=== PATIENT | male | born 1955 | race Caucasian/White ===

== ENCOUNTER 2020-01-12 06:11 | Emergency (ER) | payer MEDICARE, MEDICAID ==
[~2020-01-12] VITALS: Ht 182 cm; Wt 100.0 kg
[2020-01-12] MEDS ORDERED: NS IV 1000 ML 1,000 ML IV SCH ×2 (06:34→07:00)
--- OUTSIDE RECORDS SUMMARY | 2020-01-12 07:35 | XMS REPORT ---
Author Author Asher Dao Doctor Organization [facility] Address Unknown Phone Unavailable Care Team Providers Care Transit Driver Name Role Phone Migration, Doctor Unavailable Unavailable PROBLEMS Type Condition ICD9-CM Code [id number] Code Onset Dates Condition S tatus SNOMED Code Problem Schizophrenia, 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 Ac tive [id number] ALLERGIES No Information ENCOUNTERS Encounter Location Date Diagnosis [facility] [id number] [place] [address] Jan, [facility] [address] [id number] [place] [id number] Oct, [facility] [address] [address] Sep, Schizophrenia, 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 [facility] [address] [address] Sep, Schizophrenia, 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 [facility] [address] [address] Jul, Schizophrenia, 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 [facility] [address] [address] May, [facility] [address] [address] May, Schizophrenia, 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 [facility] [address] [address] Apr, Schizophrenia, 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 [facility] [address] [address] Apr, Encounter for immunization Z23 [facility] [id number] [place] [address] Mar, [facility] [address] [facility] [id number] [place] [address] Mar, Schizophrenia, 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 [facility] [address] [address] Jan, Schizophrenia, 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 [facility] [address] [id number] Jan, Dental examination Z01.20 [facility] [address] [id number] Nov, Caries K02.9 ; Dental examination Z01.20 and Oral health maintenance status requiring routine preventive dental care K08.9 [facility] [address] [address] Nov, Schizophrenia, 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 [facility] [address] [address] Oct, Schizophrenia, 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 [facility] [address] [id number] [address] 14 Sep, 2018 Follow up Z09 [facility] [address] [address] 08 Sep, 2018 [facility] [address] [place] [address] 02 Sep, 2018 Fever in other diseases R50. 81 and Cough R05 [facility] [address] [address] Aug, Viral upper respiratory trac t infection J06.9 [facility] [address] [place] [address] Aug, Fever R50.9 and Wheezing R06 .[address] [address] Jun, Schizophrenia, 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 [facility] [address] [address] 07 Jun, 2018 Schizophrenia, 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 [facility] [address] [address] 08 May, 2018 Schizophrenia, 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 [facility] [place] [facility] [address] [id number] [place] [address] 17 Feb, 2018 Schizophrenia, 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 [facility] [place] [facility] [address] [id number] [place] [address] December, Schizophrenia, 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 [facility] [place] [facility] [address] [id number] [place] [address] 15 Oct, 2017 Schizophrenia, 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 [facility] [place] [facility] [address] [id number] [place] [address] 07 Sep, 2017 [facility] [place] [facility] [address] [id number] [place] [address] 14 Jul, 2017 Schizophrenia, 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 [facility] [place] [facility] [address] [id number] [place] [address] 08 Jul, 2017 Schizophrenia, 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 [facility] [place] [facility] [address] [id number] [place] [address] 16 Jun, 2017 Schizophrenia, 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 [facility] [place] [facility] [address] [id number] [place] [address] 14 Apr, 2017 Schizophrenia, 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 [facility] [place] [facility] [address] [id number] [place] [address] 11 Feb, 2017 Schizophrenia, 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 [facility] [place] [facility] [address] [id number] [place] [address] 15 Jan, 2017 Schizophrenia, 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 [facility] [place] [facility] [address] [id number] [place] [address] 14 Oct, 2016 Schizophrenia, 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 [facility] [place] [facility] [address] [id number] [place] [address] 15 Jul, 2016 Schizophrenia, 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 [facility] [place] [facility] [address] [id number] [place] [address] 09 Jun, 2016 [facility] [place] [facility] [id number] [place] [address] 15 Apr, 2016 Disorganized schizophrenia F20.1 [facility] [id number] [place] [address] Mar, [facility] [id number] [place] [address] Jan, Schizophrenia, 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 [facility] [id number] [place] [address] December, [facility] [id number] [place] [address] Nov, [facility] [address] [address] Oct, Disorganized schizophrenia, 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 [facility] [id number] [place] [address] Oct, [facility] [id number] [place] [address] Sep, [facility] [id number] [place] [address] Sep, [facility] [id number] [place] [address] Sep, [facility] [id number] [place] [address] Aug, [facility] [address] [address] Aug, Disorganized schizophrenia F20.1 [facility] [id number] [place] [address] Aug, [facility] [id number] [place] [address] May, [facility] [id number] [place] [address] May, Schizophrenia, 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 [facility] [id number] [place] [address] Feb, Disorganized schizophrenia, 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 [facility] [address] [id number] [place] [address] December, Disorganized schizophrenia, 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 [facility] [address] [id number] [place] [address] Nov, [facility] [id number] [place] [address] Nov, [facility] [id number] [place] [address] Jun, [facility] [id number] [place] [address] Jun, [facility] [id number] [place] [address] Mar, [facility] [id number] [place] [address] Mar, [facility] [id number] [place] [address] December, [facility] [id number] [place] [address] December, [facility] [id number] [place] [address] Sep, [facility] [id number] [place] [address] Sep, [facility] [id number] [place] [address] Sep, [facility] [id number] [place] [address] Sep, [facility] [id number] [place] [address] Jun, [facility] [id number] [place] [address] Jun, [facility] [id number] [place] [address] May, [facility] [place] [facility] [address] [facility] [id number] [facility] [place] [address] 24 May, 2013 [facility] [place] [facility] [address] [facility] [id number] [facility] [place] [address] Apr, [facility] [place] [facility] [address] [id number] [facility] [place] [address] Mar, [facility] [place] [facility] [address] [id number] [place] [address] Jan, [facility] [place] [facility] [address] [facility] [id number] [place] [address] Jan, [facility] [place] [facility] [address] [id number] [facility] [place] [address] 26 Nov, 2012 [facility] [place] [facility] [address] [id number] [facility] [place] [address] 25 Nov, 2012 [facility] [place] [facility] [address] [id number] [place] [address] 23 Nov, 2012 [facility] [place] [facility] [address] [id number] [facility] [place] [address] 17 Nov, 2012 [facility] [place] [facility] [address] [id number] [place] [address] 16 Nov, 2012 [facility] [place] [facility] [address] [id number] [place] [address] 12 Nov, 2012 [facility] [place] [facility] [address] [id number] [place] [address] 11 Nov, 2012 [facility] [place] [facility] [address] [id number] [facility] [place] [address] 08 Nov, 2012 [facility] [place] [facility] [address] [id number] [place] [address] 27 Oct, 2012 [facility] [place] [facility] [address] [id number] [facility] [place] [address] 07 Oct, 2012 [facility] [place] [facility] [address] [id number] [facility] [place] [address] 05 Oct, 2012 [facility] [place] [facility] [id number] [place] [address] Jul, [facility] [id number] [place] [address] Jul, [facility] [id number] [place] [address] Apr, [facility] [id number] [place] [address] Jan, [facility] [id number] [place] [address] Oct, [facility] [address] [address] Oct, [facility] [id number] [place] [address] Sep, [facility] [id number] [place] [address] Sep, [facility] [id number] [place] [address] Aug, [facility] [id number] [place] [address] Jul, [facility] [id number] [place] [address] Jun, [facility] [id number] [place] [address] Jun, [facility] [id number] [place] [address] Jan, IMMUNIZATIONS No Known Immunizations SOCIAL HISTORY Never Assessed REASON FOR VISIT PLAN OF CARE VITAL SIGNS MEDICATIONS Unknown Medications RESULTS No Results PROCEDURES No Known procedures INSTRUCTIONS MEDICATIONS ADMINISTERED No Known Medications MEDICAL (GENERAL) HISTORY Type Description Date Medical History Disorganized schizophrenia, chronic cond ition Surgical History teeth surgically removed 02/2019 Hospitalization History pneumonia 09/2018
--- OUTSIDE RECORDS SUMMARY | 2020-01-12 07:35 | XMS REPORT ---
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 Ac tive [id number] ALLERGIES No Information ENCOUNTERS Encounter Location Date Diagnosis [facility] [address] [facility] [id number] [address] [place] [phone] Jan, [facility] [address] [facility] [id number] [address] [place] [phone] Nov, [facility] [address] [facility] [id number] [address] [place] [id number] Oct, Dental examination Z01.20 ; Caries K02.9 and 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 [facility] [address] [facility] [id number] [address] [place] [phone] Sep, Schizophrenia, 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 [facility] [address] [facility] [id number] [address] [place] [address] Sep, Schizophrenia, 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 [facility] [address] [facility] [id number] [address] [place] [id number] Jul, Schizophrenia, 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 [facility] [address] [facility] [id number] [address] [place] [address] May, [facility] [address] [facility] [id number] [address] [place] [phone] May, Schizophrenia, 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 [facility] [address] [facility] [id number] [address] [place] [phone] Apr, Schizophrenia, 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 [facility] [address] [facility] [id number] [address] [place] [id number] Apr, Encounter for immunization Z 23 [facility] [address] [facility] [id number] [address] [place] [address] Mar, [facility] [place] [address] [facility] [id number] [place] [address] 23 Mar, 2019 Schizophrenia, 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 [facility] [address] [facility] [id number] [address] [place] [address] Jan, Schizophrenia, 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 [facility] [id number] [place] [id number] Jan, Dental examination Z01.20 [facility] [id number] [place] [id number] Nov, Caries K02.9 ; Dental examin ation Z01.20 and Oral health maintenance status requiring routine preventive dental care K08.9 [facility] [address] [facility] [id number] [address] [place] [phone] Nov, Schizophrenia, 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 [facility] [address] [place] [id number] [address] [place] [phone] Oct, Schizophrenia, 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 [facility] [address] [place] [id number] [place] [address]28 [id number] 14 Sep, 2018 Follow up Z09 [facility] [address] [place] [id number] [address] [place] [phone] 08 Sep, 2018 [facility] [address] [place] [id number] [address] [place] [phone] 02 Sep, 2018 Fever in other diseases R50. 81 and Cough R05 [facility] [address] [facility] [id number] [address] [place] [phone] Aug, Viral upper respiratory trac t infection J06.9 [facility] [address] [facility] [id number] [address] [place] [phone] Aug, Fever R50.9 and Wheezing R06 .2 [facility] [address] [id number] [address] [place] [address], [place] [address] Jun, Schizophrenia, 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 [facility] [address] [id number] [address] [place] [address], [place] [address] 07 Jun, 2018 Schizophrenia, 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 [facility] [address] [id number] [address] [place] [address], [place] [address] 08 May, 2018 Schizophrenia, 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 [facility] [address] [id number] [address] [place] [address], [place] [address] Feb, Schizophrenia, 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 [facility] [address] [id number] [address] [place] [address], [place] [address] December, Schizophrenia, 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 [facility] [address] [id number] [address] [place] [address], [place] [address] Oct, Schizophrenia, 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 [facility] [address] [id number] [address] [place] [address], [place] [address] 07 Sep, 2017 [facility] [address] [id number] [address] [place] [phone] 14 Jul, 2017 Schizophrenia, 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 [facility] [address] [id number] [address] [place] [address], [place] [address] 08 Jul, 2017 Schizophrenia, 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 [facility] [address] [id number] [address] [place] [id number] 16 Jun, 2017 Schizophrenia, 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 [facility] [address] [id number] [address] [place] [address], [place] [address] 14 Apr, 2017 Schizophrenia, 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 [facility] [address] [id number] [address] [place] [id number] Feb, Schizophrenia, 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 [facility] [address] [id number] [address] [place] [id number] 15 Jan, 2017 Schizophrenia, 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 [facility] [address] [id number] [address] [place] [address], [place] [address] 14 Oct, 2016 Schizophrenia, 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 [facility] [address] [id number] [address] [place] [address], [place] [address] 15 Jul, 2016 Schizophrenia, 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 [facility] [address] [id number] [address] [place] [address], [place] [address] 09 Jun, 2016 [facility] [address] [id number] [address] [place] [phone] 15 Apr, 2016 Disorganized schizophrenia F 20.1 [facility] [address] [id number] [address] [place] [address], [place] [address] Mar, [facility] [address] [id number] [address] [place] [address], [place] [address] Jan, Schizophrenia, 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 [facility] [address] [id number] [address] [place] [phone] December, [facility] [address] [id number] [address] [place] [phone] Nov, [facility] [address] [id number] [address] [place] [phone] 29 Oct, 2015 Disorganized schizophrenia, 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 [facility] [address] [id number] [address] [place] [phone] Oct, [facility] [address] [id number] [address] [place] [id number] Sep, [facility] [address] [id number] [address] [place] [address], [place] [address] Sep, [facility] [address] [id number] [address] [place] [address] Sep, [facility] [address] [id number] [address] [place] [address] Aug, [facility] [address] [id number] [address] [place] [phone] 15 Aug, 2015 Disorganized schizophrenia F 20.1 [facility] [address] [id number] [address] [place] [address], [place] [address] Aug, [facility] [address] [id number] [address] [place] [phone] May, [facility] [address] [id number] [address] [place] [address] May, Schizophrenia, 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 [facility] [address] [id number] [address] [place] [address] Feb, Disorganized schizophrenia, 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 [facility] [address] [id number] [address] [place] [address] December, Disorganized schizophrenia, 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 [facility] [address] [id number] [address] [place] [address] Nov, [facility] [address] [id number] [address] [place] [phone] Nov, [facility] [address] [id number] [address] [place] [phone] Jun, [facility] [address] [id number] [address] [place] [phone] Jun, [facility] [address] [id number] [address] [place] [phone] Mar, [facility] [address] [id number] [address] [place] [phone] Mar, [facility] [address] [id number] [address] [place] [phone] December, [facility] [address] [id number] [address] [place] [phone] December, [facility] [address] [id number] [address] [place] [phone] Sep, [facility] [address] [id number] [address] [place] [address], [place] [address] Sep, [facility] [address] [id number] [address] [place] [address], [place] [address] Sep, [facility] [address] [id number] [address] [place] [address], [place] [address] Sep, [facility] [address] [id number] [address] [place] [address], [place] [address] Jun, [facility] [address] [id number] [address] [place] [address], [place] [address] Jun, [facility] [address] [id number] [address] [place] [address], [place] [address] May, [facility] [address] [id number] [address] [place] [address], [place] [address] May, [facility] [address] [id number] [address] [place] [address], [place] [address] Apr, [facility] [address] [id number] [address] [place] [address], [place] [address] Mar, [facility] [address] [id number] [address] [place] [phone] Jan, [facility] [address] [id number] [address] [place] [address], [place] [address] Jan, [facility] [address] [id number] [address] [place] [phone] Nov, [facility] [address] [id number] [address] [place] [address], [place] [address] Nov, [facility] [address] [id number] [address] [place] [address], [place] [address] Nov, [facility] [address] [id number] [address] [place] [address], [place] [address] Nov, [facility] [address] [id number] [address] [place] [phone] 16 Nov, 2012 [facility] [address] [id number] [address] [place] [address], [place] [address] 12 Nov, 2012 [facility] [address] [id number] [address] [place] [address], [place] [address] 11 Nov, 2012 [facility] [address] [id number] [address] [place] [address], [place] [address] 08 Nov, 2012 [facility] [address] [id number] [address] [place] [address], [place] [address] 27 Oct, 2012 [facility] [address] [id number] [address] [place] [address], [place] [address] 07 Oct, 2012 [facility] [address] [id number] [address] [place] [address], [place] [address] 05 Oct, 2012 [facility] [address] [id number] [address] [place] [address], [place] [address] Jul, [facility] [address] [id number] [address] [place] [address], [place] [address] Jul, [facility] [address] [id number] [address] [place] [address], [place] [address] Apr, [facility] [address] [id number] [address] [place] [address], [place] [address] Jan, [facility] [address] [id number] [address] [place] [address], [place] [address] Oct, [facility] [address] [id number] [address] [place] [address], [place] [address] Oct, [facility] [address] [id number] [address] [place] [address], [place] [address] Sep, [facility] [address] [id number] [address] [place] [address], [place] [address] Sep, [facility] [address] [id number] [address] [place] [address], [place] [address] Aug, [facility] [address] [facility] [id number] [address] [place] [phone] 16 Jul, 2011 [facility] [address] [facility] [id number] [address] [place] [address] Jun, [facility] [address] [facility] [id number] [address] [place] [phone] 15 Jun, 2011 [facility] [address] [facility] [id number] [address] [place] [address] 17 Jan, 2011 IMMUNIZATIONS No Known Immunizations SOCIAL HISTORY Never Assessed REASON FOR VISIT PLAN OF CARE VITAL SIGNS Height 68 in 2013-07-02 Weight 174.25 lbs 2013-07-02 Temperature 98 degrees Fahrenheit 2013-07-02 Heart Rate 80 bpm 2013-07-02 Respiratory Rate 28 2013-07-02 Blood pressure systolic 100 mmHg 2013-07-02 Blood pressure diastolic 72 mmHg 2013-07-02 MEDICATIONS Unknown Medications RESULTS No Results PROCEDURES No Known procedures INSTRUCTIONS MEDICATIONS ADMINISTERED No Known Medications MEDICAL (GENERAL) HISTORY Type Description Date Medical History Disorganized schizophrenia, chronic cond ition Surgical History teeth surgically removed 02/2019 Hospitalization History pneumonia 09/2018
--- OUTSIDE RECORDS SUMMARY | 2020-01-12 07:35 | XMS REPORT ---
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 Ac tive [id number] ALLERGIES No Information ENCOUNTERS Encounter Location Date Diagnosis [facility] [address] [address] Sep, [facility] [address] [address] Jul, Schizophrenia, 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 [facility] [address] [address] May, [facility] [address] [address] May, Schizophrenia, 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 [facility] [address] [address] Apr, Schizophrenia, 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 [facility] [address] [address] Apr, Encounter for immunization Z23 [facility] [address] [address] Mar, [facility] [address] [id number] [place] [address] Mar, Schizophrenia, 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 [facility] [address] [address] Jan, Schizophrenia, 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 [facility] [address] [id number] [place] [id number] Jan, Dental examination Z01.20 [facility] [address] [id number] [place] [id number] 16 Nov, 2018 Caries K02.9 ; Dental examination Z01.20 and Oral health maintenance status requiring routine preventive dental care K08.9 [facility] [id number] [place] [address] 15 Nov, 2018 Schizophrenia, 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 [facility] [id number] [place] [address] Oct, Schizophrenia, 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 [facility] [address] [facility] [address] 14 Sep, 2018 Follow up Z09 [facility] [id number] [place] [address] 08 Sep, 2018 [facility] [address] [place] [address] 02 Sep, 2018 Fever in other diseases R50. 81 and Cough R05 [facility] [address] [place] [phone] Aug, Viral upper respiratory trac t infection J06.9 [facility] [address] [place], [place] [id number] [address] [place] [address] 07 Aug, 2018 Fever R50.9 and Wheezing R06 .2 [place] [address] [address] Jun, Schizophrenia, 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 [facility] [address] [address] 07 Jun, 2018 Schizophrenia, 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 [facility] [address] [address] 08 May, 2018 Schizophrenia, 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 [facility] [address] [address] Feb, Schizophrenia, 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 [facility] [address] [place] [address] 10 Dec, 2017 Schizophrenia, 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 [facility] [address] [id number] [place] [address] 15 Oct, 2017 Schizophrenia, 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 [facility] [address] [id number] [place] [address] 07 Sep, 2017 [facility] [address] [id number] [place] [address] 14 Jul, 2017 Schizophrenia, 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 [facility] [address] [id number] [place] [address] 08 Jul, 2017 Schizophrenia, 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 [facility] [address] [id number] [place] [address] 16 Jun, 2017 Schizophrenia, 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 [facility] [address] [id number] [place] [address] 14 Apr, 2017 Schizophrenia, 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 [facility] [address] [id number] [place] [address] 11 Feb, 2017 Schizophrenia, 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 [facility] [id number] [place] [address] 15 Jan, 2017 Schizophrenia, 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 [facility] [address] [id number] [place] [address] 14 Oct, 2016 Schizophrenia, 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 [facility] [address] [id number] [place] [address] 15 Jul, 2016 Schizophrenia, 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 [facility] [address] [id number] [place] [address] 09 Jun, 2016 [facility] [id number] [place] [address] 15 Apr, 2016 Disorganized schizophrenia F20.1 [facility] [address] [id number] [place] [address] 11 Mar, 2016 [facility] [address] [id number] [place] [address] Jan, Schizophrenia, 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 [facility] [id number] [place] [address] December, [facility] [id number] [place] [address] Nov, [facility] [id number] [place] [address] Oct, Disorganized schizophrenia, 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 [facility] [id number] [place] [address] Oct, [facility] [address] [address] Sep, [facility] [id number] [place] [address] Sep, [facility] [address] [address] Sep, [facility] [id number] [place] [address] Aug, [facility] [address] [address] Aug, Disorganized schizophrenia F20.1 [facility] [id number] [place] [address] Aug, [facility] [address] [address] May, [facility] [id number] [place] [address] May, Schizophrenia, 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 [facility] [address] [address] Feb, Disorganized schizophrenia, 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 [facility] [id number] [place] [address] December, Disorganized schizophrenia, 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 [facility] [address] [place] [address] 14 Nov, 2014 [facility] [address] [facility] [id number] [place] [address] Nov, [facility] [address] [id number] [place] [address] Jun, [facility] [address] [id number] [place] [address] Jun, [facility] [address] [id number] [place] [address] Mar, [facility] [address] [id number] [place] [address] Mar, [facility] [address] [id number] [place] [address] December, [facility] [address] [id number] [place] [address] December, [facility] [address] [id number] [place] [address] Sep, [facility] [address] [id number] [place] [address] Sep, [facility] [address] [id number] [place] [address] Sep, [facility] [address] [id number] [place] [address] Sep, [facility] [address] [id number] [place] [address] Jun, [facility] [address] [id number] [place] [address] 14 Jun, 2013 [facility] [address] [id number] [place] [address] 24 May, 2013 [facility] [address] [id number] [place] [address] 24 May, 2013 [facility] [address] [id number] [place] [address] Apr, [facility] [address] [id number] [place] [address] Mar, [facility] [address] [id number] [place] [address] Jan, [facility] [address] [id number] [place] [address] Jan, [facility] [address] [id number] [place] [address] 26 Nov, 2012 [facility] [address] [id number] [place] [address] Nov, [facility] [address] [id number] [place] [address] 23 Nov, 2012 [facility] [address] [id number] [place] [address] 17 Nov, 2012 [facility] [address] [id number] [place] [address] 16 Nov, 2012 [facility] [address] [id number] [place] [address] 12 Nov, 2012 [facility] [address] [id number] [place] [address] 11 Nov, 2012 [facility] [address] [id number] [place] [address] 08 Nov, 2012 [facility] [address] [id number] [place] [address] 27 Oct, 2012 [facility] [address] [id number] [place] [address] 07 Oct, 2012 [facility] [address] [id number] [place] [address] 05 Oct, 2012 [facility] [address] [id number] [place] [address] Jul, [facility] [address] [id number] [place] [address] Jul, [facility] [address] [facility] [place] [address] Apr, [facility] [address] [id number] [place] [address] Jan, [facility] [address] [id number] [place] [address] Oct, [facility] [address] [id number] [place] [address] Oct, [facility] [id number] [place] [address] Sep, [facility] [id number] [place] [address] Sep, [facility] [id number] [place] [address] Aug, [facility] [id number] [place] [address] Jul, [facility] [id number] [place] [address] Jun, [facility] [address] [id number] [place] [address] Jun, [facility] [id number] [place] [address] Jan, IMMUNIZATIONS No Known Immunizations SOCIAL HISTORY Never Assessed REASON FOR VISIT PLAN OF CARE VITAL SIGNS Height 68 in 2014-01-05 Weight 200.25 lbs 2014-01-05 Temperature 97.8 degrees Fahrenheit 2014-01-05 Heart Rate 78 bpm 2014-01-05 Respiratory Rate 28 2014-01-05 Blood pressure systolic 122 mmHg 2014-01-05 Blood pressure diastolic 68 mmHg 2014-01-05 MEDICATIONS Unknown Medications RESULTS No Results PROCEDURES No Known procedures INSTRUCTIONS MEDICATIONS ADMINISTERED No Known Medications MEDICAL (GENERAL) HISTORY Type Description Date Medical History Disorganized schizophrenia, chronic cond ition Surgical History teeth surgically removed 02/2019 Hospitalization History pneumonia 09/2018
--- OUTSIDE RECORDS SUMMARY | 2020-01-12 07:35 | XMS REPORT ---
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 Ac tive [id number] ALLERGIES No Information ENCOUNTERS Encounter Location Date Diagnosis [facility] [address] [id number] [address] [place] [phone] Jan, [facility] [address] [id number] [address] [place] [address] Nov, [facility] [address] [id number] [address] [place] [id number] Oct, Dental examination Z01.20 ; Caries K02.9 and 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 [facility] [address] [id number] [address] [place] [address] Sep, Schizophrenia, 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 [facility] [address] [id number] [address] [place] [address] Sep, Schizophrenia, 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 [facility] [address] [id number] [address] [place] [address] Jul, Schizophrenia, 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 [facility] [address] [id number] [address] [place] [address] May, [facility] [address] [facility] [id number] [address] [place] [address] May, Schizophrenia, 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 [facility] [address] [id number] [address] [place] [address] Apr, Schizophrenia, 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 [facility] [address] [facility] [id number] [address] [place] [address] Apr, Encounter for immunization Z 23 [facility] [address] [facility] [id number] [address] [place] [address] Mar, [facility] [address] [id number] [phone] Mar, Schizophrenia, 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 [facility] [address] [facility] [id number] [address] [place] [address] Jan, Schizophrenia, 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 [facility] [address] [id number] Jan, Dental examination Z01.20 [facility] [address] [id number] Nov, 2018 Caries K02.9 ; Dental examin ation Z01.20 and Oral health maintenance status requiring routine preventive dental care K08.9 [facility] [address] [facility] [id number] [address] [place] [phone] Nov, Schizophrenia, 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 [facility] [address] [id number] [address] [place] [phone] Oct, Schizophrenia, 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 [facility] [id number] [place] [address] [phone] 14 Sep, 2018 Follow up Z09 [facility] [address] [facility] [id number] [address] [place] [phone] 08 Sep, 2018 [facility] [address] [facility] [id number] [address] [place] [phone] 02 Sep, 2018 Fever in other diseases R50. 81 and Cough R05 [facility] [address] [facility] [id number] [address] [place] [phone] Aug, Viral upper respiratory trac t infection J06.9 [facility] [address] [id number] [address] [place] [address], [place] [address] 07 Aug, 2018 Fever R50.9 and Wheezing R06 .2 [facility] [address] [id number] [address] [place] [address], [place] [address] 27 Jun, 2018 Schizophrenia, 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 [facility] [address] [facility] [id number] [address] [place] [address], [place] [address] 07 Jun, 2018 Schizophrenia, 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 [facility] [address] [facility] [id number] [address] [place] [address], [place] [address] 08 May, 2018 Schizophrenia, 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 [facility] [address] [id number] [address] [place] [address], [place] [address] 17 Feb, 2018 Schizophrenia, 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 [facility] [address] [facility] [id number] [address] [place] [address], [place] [address] December, Schizophrenia, 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 [facility] [address] [facility] [id number] [address] [place] [phone] 15 Oct, 2017 Schizophrenia, 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 [facility] [address] [id number] [address] [place] [address], [place] [address] 07 Sep, 2017 [facility] [address] [facility] [id number] [address] [place] [address], [place] [address] 14 Jul, 2017 Schizophrenia, 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 [facility] [address] [facility] [id number] [address] [place] [phone] 08 Jul, 2017 Schizophrenia, 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 [facility] [address] [facility] [id number] [address] [place] [phone] 16 Jun, 2017 Schizophrenia, 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 [facility] [address] [facility] [id number] [address] [place] [phone] 14 Apr, 2017 Schizophrenia, 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 [facility] [address] [facility] [id number] [address] [place] [address] Feb, Schizophrenia, 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 [facility] [address] [id number] [address] [place] [address], [place] [address] 15 Jan, 2017 Schizophrenia, 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 [facility] [address] [id number] [address] [place] [address], [place] [address] 14 Oct, 2016 Schizophrenia, 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 [facility] [address] [id number] [address] [place] [address], [place] [address] 15 Jul, 2016 Schizophrenia, 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 [facility] [address] [id number] [address] [place] [address], [place] [address] 09 Jun, 2016 [facility] [address] [id number] [address] [place] [address], [place] [address] 15 Apr, 2016 Disorganized schizophrenia F 20.1 [facility] [address] [id number] [address] [place] [address], [place] [address] Mar, [facility] [address] [id number] [address] [place] [address], [place] [address] Jan, Schizophrenia, 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 [facility] [address] [id number] [address] [place] [address], [place] [address] December, [facility] [address] [id number] [address] [place] [address] Nov, [facility] [address] [id number] [address] [place] [address], [place] [address] 29 Oct, 2015 Disorganized schizophrenia, 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 [facility] [address] [id number] [address] [place] [address], [place] [address] 15 Oct, 2015 [facility] [address] [id number] [address] [place] [address], [place] [address] Sep, [facility] [address] [id number] [address] [place] [phone] Sep, [facility] [address] [id number] [address] [place] [address], [place] [address] Sep, [facility] [address] [id number] [address] [place] [address], [place] [address] Aug, [facility] [address] [id number] [address] [place] [address] Aug, Disorganized schizophrenia F 20.1 [facility] [address] [id number] [address] [place] [address], [place] [address] Aug, [facility] [address] [id number] [address] [place] [address], [place] [address] May, [facility] [address] [id number] [address] [place] [address] May, Schizophrenia, 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 [facility] [address] [id number] [address] [place] [address] Feb, Disorganized schizophrenia, 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 [facility] [address] [id number] [address] [place] [address] December, Disorganized schizophrenia, 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 [facility] [address] [id number] [address] [place] [address] Nov, [facility] [address] [id number] [address] [place] [address], [place] [address] Nov, [facility] [address] [id number] [address] [place] [address] Jun, [facility] [address] [id number] [address] [place] [address], [place] [address] Jun, [facility] [address] [id number] [address] [place] [address] Mar, [facility] [address] [id number] [address] [place] [address], [place] [address] Mar, [facility] [address] [id number] [address] [place] [phone] December, [facility] [address] [id number] [address] [place] [address] December, [facility] [address] [id number] [address] [place] [address], [place] [address] Sep, [facility] [address] [id number] [address] [place] [address], [place] [address] Sep, [facility] [address] [id number] [address] [place] [address], [place] [address] Sep, [facility] [address] [id number] [address] [place] [address], [place] [address] Sep, [facility] [address] [id number] [address] [place] [address], [place] [address] Jun, [facility] [address] [id number] [address] [place] [address], [place] [address] Jun, [facility] [address] [id number] [address] [place] [address], [place] [address] May, [facility] [address] [id number] [address] [place] [address], [place] [address] May, [facility] [address] [id number] [address] [place] [address], [place] [address] Apr, [facility] [address] [id number] [address] [place] [phone] Mar, [facility] [address] [id number] [address] [place] [address], [place] [address] Jan, [facility] [address] [id number] [address] [place] [address] Jan, [facility] [address] [id number] [address] [place] [address], [place] [address] Nov, [facility] [address] [id number] [address] [place] [address], [place] [address] Nov, [facility] [address] [id number] [address] [place] [address], [place] [address] Nov, [facility] [address] [id number] [address] [place] [address] 17 Nov, 2012 [facility] [address] [id number] [address] [place] [address], [place] [address] 16 Nov, 2012 [facility] [address] [id number] [address] [place] [address], [place] [address] 12 Nov, 2012 [facility] [address] [id number] [address] [place] [address], [place] [address] 11 Nov, 2012 [facility] [address] [id number] [address] [place] [address], [place] [address] 08 Nov, 2012 [facility] [address] [id number] [address] [place] [address], [place] [address] 27 Oct, 2012 [facility] [address] [id number] [address] [place] [address], [place] [address] 07 Oct, 2012 [facility] [address] [id number] [address] [place] [address], [place] [address] 05 Oct, 2012 [facility] [address] [id number] [address] [place] [address], [place] [address] Jul, [facility] [address] [id number] [address] [place] [address], [place] [address] Jul, [facility] [address] [id number] [address] [place] [address], [place] [address] 27 Apr, 2012 [facility] [address] [id number] [address] [place] [address], [place] [address] Jan, [facility] [address] [id number] [address] [place] [address], [place] [address] Oct, [facility] [address] [id number] [address] [place] [address], [place] [address] 15 Oct, 2011 [facility] [address] [id number] [address] [place] [address], [place] [address] Sep, [facility] [address] [id number] [address] [place] [address], [place] [address] Sep, [facility] [address] [facility] [id number] [address] [place] [phone] Aug, [facility] [address] [facility] [id number] [address] [place] [address] Jul, [facility] [address] [facility] [id number] [address] [place] [address] Jun, [facility] [address] [facility] [id number] [address] [place] [phone] Jun, [facility] [address] [facility] [id number] [address] [place] [phone] Jan, IMMUNIZATIONS No Known Immunizations SOCIAL HISTORY Never Assessed REASON FOR VISIT PLAN OF CARE VITAL SIGNS Height 67.5 in 2012-02-13 Weight 169 lbs 2012-02-13 Blood pressure systolic 112 mmHg 2012-02-13 Blood pressure diastolic 70 mmHg 2012-02-13 MEDICATIONS Unknown Medications RESULTS No Results PROCEDURES Procedure Date Ordered Result Body Site RENAL FUNCTION PANEL February 13, 2012 LIPID PANEL February 13, 2012 INSTRUCTIONS MEDICATIONS ADMINISTERED No Known Medications MEDICAL (GENERAL) HISTORY Type Description Date Medical History Disorganized schizophrenia, chronic cond ition Surgical History teeth surgically removed 02/2019 Hospitalization History pneumonia 09/2018
--- OUTSIDE RECORDS SUMMARY | 2020-01-12 07:35 | XMS REPORT ---
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 Ac tive [id number] ALLERGIES Substance Reaction Event Type Date Status Sulfa(sulfonamide Antibiotics) Unknown Non Drug Allergy Nov Active ENCOUNTERS Encounter Location Date Diagnosis [facility] [address] [address] Jan, [facility] [address] [id number] Jan, Dental examination Z01.20 [facility] [address] [id number] Nov, Caries K02.9 ; Dental examin ation Z01.20 and Oral health maintenance status requiring routine preventive dental care K08.9 [facility] [address] [address] Nov, Schizophrenia, 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 [facility] [address] [address] Oct, Schizophrenia, 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 [facility] [address] [place] [address] 14 Sep, 2018 Follow up Z09 [facility] [address] [id number] [address] [place] [address] 08 Sep, 2018 [facility] [address] [address] 02 Sep, 2018 Fever in other diseases R50. 81 and Cough R05 [facility] [address] [id number] [address] [place] [address] Aug, Viral upper respiratory trac t infection J06.9 [facility] [address] [id number] [address] [place] [address], [place] [address] Aug, Fever R50.9 and Wheezing R06 .2 [facility] [address] [id number] [address] [place] [address], [place] [address] 27 Jun, 2018 Schizophrenia, 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 [facility] [address] [id number] [address] [place] [address], [place] [address] 07 Jun, 2018 Schizophrenia, 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 [facility] [address] [id number] [address] [place] [address], [place] [address] 08 May, 2018 Schizophrenia, 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 [facility] [address] [id number] [address] [place] [address], [place] [address] 17 Feb, 2018 Schizophrenia, 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 [facility] [address] [id number] [address] [place] [address] December, Schizophrenia, 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 [facility] [address] [id number] [address] [place] [address] 15 Oct, 2017 Schizophrenia, 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 [facility] [address] [id number] [address] [place] [address] 07 Sep, 2017 [facility] [address] [id number] [address] [place] [address] 14 Jul, 2017 Schizophrenia, 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 [facility] [address] [id number] [address] [place] [address] 08 Jul, 2017 Schizophrenia, 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 [facility] [address] [facility] [id number] [address] [place] [address] 16 Jun, 2017 Schizophrenia, 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 [facility] [address] [id number] [address] [place] [id number] 14 Apr, 2017 Schizophrenia, 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 [facility] [address] [facility] [id number] [address] [place] [address] Feb, Schizophrenia, 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 [facility] [address] [id number] [address] [place] [id number] 15 Jan, 2017 Schizophrenia, 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 [facility] [address] [id number] [address] [place] [id number] 14 Oct, 2016 Schizophrenia, 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 [facility] [address] [id number] [address] [place] [id number] 15 Jul, 2016 Schizophrenia, 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 [facility] [address] [id number] [address] [place] [address] Jun, [facility] [address] [id number] [address] [place] [id number] 15 Apr, 2016 Disorganized schizophrenia F 20.1 [facility] [address] [id number] [address] [place] [address] Mar, [facility] [address] [id number] [address] [place] [address] Jan, Schizophrenia, 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 [facility] [address] [id number] [address] [place] [address] December, [facility] [address] [id number] [address] [place] [address] Nov, [facility] [address] [id number] [address] [place] [address] 29 Oct, 2015 Disorganized schizophrenia, 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 [facility] [address] [id number] [address] [place] [address] Oct, [facility] [address] [id number] [address] [place] [address] Sep, [facility] [address] [id number] [address] [place] [address] Sep, [facility] [address] [id number] [address] [place] [id number] Sep, [facility] [address] [id number] [address] [place] [address] Aug, [facility] [address] [id number] [address] [place] [address] Aug, Disorganized schizophrenia F 20.1 [facility] [address] [id number] [address] [place] [address] Aug, [facility] [address] [id number] [address] [place] [address] May, [facility] [address] [id number] [address] [place] [id number] May, Schizophrenia, 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 [facility] [address] [id number] [address] [place] [address] Feb, Disorganized schizophrenia, 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 [facility] [address] [id number] [address] [place] [address] December, Disorganized schizophrenia, 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 [facility] [address] [id number] [address] [place] [address] Nov, [facility] [address] [id number] [address] [place] [address] Nov, [facility] [address] [id number] [address] [place] [address] Jun, [facility] [address] [id number] [address] [place] [address] Jun, [facility] [address] [id number] [address] [place] [address] Mar, [facility] [address] [id number] [address] [place] [address] Mar, [facility] [address] [id number] [address] [place] [address] December, [facility] [address] [id number] [address] [place] [address], [place] [address] December, [facility] [address] [id number] [address] [place] [address], [place] [address] Sep, [facility] [address] [id number] [address] [place] [address], [place] [address] Sep, [facility] [address] [id number] [address] [place] [address], [place] [address] Sep, [facility] [address] [id number] [address] [place] [address], [place] [address] Sep, [facility] [address] [id number] [address] [place] [address], [place] [address] Jun, [facility] [address] [id number] [address] [place] [address], [place] [address] Jun, [facility] [address] [id number] [address] [place] [address], [place] [address] May, [facility] [address] [id number] [address] [place] [address], [place] [address] May, [facility] [address] [id number] [address] [place] [address], [place] [address] Apr, [facility] [address] [id number] [address] [place] [address], [place] [address] Mar, [facility] [address] [id number] [address] [place] [address], [place] [address] Jan, [facility] [address] [id number] [address] [place] [address], [place] [address] Jan, [facility] [address] [id number] [address] [place] [address], [place] [address] Nov, [facility] [address] [id number] [address] [place] [address], [place] [address] Nov, [facility] [address] [id number] [address] [place] [address], [place] [address] 23 Nov, 2012 [facility] [address] [id number] [address] [place] [address], [place] [address] 17 Nov, 2012 [facility] [address] [id number] [address] [place] [address], [place] [address] 16 Nov, 2012 [facility] [address] [id number] [address] [place] [address], [place] [address] 12 Nov, 2012 [facility] [address] [id number] [address] [place] [address], [place] [address] 11 Nov, 2012 [facility] [address] [id number] [address] [place] [address], [place] [address] 08 Nov, 2012 [facility] [address] [id number] [address] [place] [address], [place] [address] 27 Oct, 2012 [facility] [address] [id number] [address] [place] [address], [place] [address] 07 Oct, 2012 [facility] [address] [id number] [address] [place] [address], [place] [address] 05 Oct, 2012 [facility] [address] [id number] [address] [place] [address], [place] [address] Jul, [facility] [address] [id number] [address] [place] [address], [place] [address] 27 Jul, 2012 [facility] [address] [id number] [address] [place] [address], [place] [address] 27 Apr, 2012 [facility] [address] [id number] [address] [place] [address], [place] [address] 27 Jan, 2012 [facility] [address] [id number] [address] [place] [address], [place] [address] 27 Oct, 2011 [facility] [address] [id number] [address] [place] [address], [place] [address] 15 Oct, 2011 [facility] [address] [id number] [address] [place] [address], [place] [address] 27 Sep, 2011 [facility] [address] [id number] [address] [place] [address] Sep, [facility] [address] [facility] [id number] [address] [place] [phone] Aug, [facility] [address] [facility] [id number] [address] [place] [address] Jul, [facility] [address] [facility] [id number] [address] [place] [phone] Jun, [facility] [address] [facility] [id number] [address] [place] [address] Jun, [facility] [address] [facility] [id number] [address] [place] [address] Jan, IMMUNIZATIONS No Known Immunizations SOCIAL HISTORY Never Assessed REASON FOR VISIT EMR[place] PLAN OF CARE VITAL SIGNS MEDICATIONS Medication Instructions Dosage Frequency Start Date End Date Duration S tatus Abilify 10 mg take 1 tablet by Ora l route 1 time per day for mood and psychosis Jun, Active trihexyphenidyl 2 mg 1 tablet by Oral route 2 ti mes per day for side effects Jun, Active Clonazepam 1 mg take 0.5 tablet by O ral route 2 times per day qAM and w/lunch1 Tablet by Oral route 1 time per day qHS Jun, Active RESULTS No Results PROCEDURES No Known procedures INSTRUCTIONS MEDICATIONS ADMINISTERED No Known Medications MEDICAL (GENERAL) HISTORY Type Description Date Medical History Disorganized schizophrenia, chronic cond ition Surgical History No know Surgical history Hospitalization History pneumonia 09/2018
--- OUTSIDE RECORDS SUMMARY | 2020-01-12 07:35 | XMS REPORT ---
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 [id number] [address] [place] [id number] Jan, Schizophrenia, 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 [facility] [address] [id number] [address] [place] [id number] Jan, Dental examination Z01.20 [facility] [address] [id number] [address] [place] [id number] Nov, Caries K02.9 ; Dental examin ation Z01.20 and Oral health maintenance status requiring routine preventive dental care K08.9 [facility] [address] [facility] [id number] [address] [place] [id number] Nov, Schizophrenia, 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 [facility] [address] [facility] [id number] [address] [place] [id number] Oct, Schizophrenia, 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 [facility] [address] [place] [address] Sep, Follow up Z09 [facility] [address] [facility] [id number] [address] [place] [id number] 08 Sep, 2018 [facility] [address] [facility] [id number] [address] [place] [id number] 02 Sep, 2018 Fever in other diseases R50. 81 and Cough R05 [facility] [address] [id number] [address] [place] [id number] Aug, Viral upper respiratory trac t infection J06.9 [facility] [address] [id number] [address] [place] [id number] Aug, Fever R50.9 and Wheezing R06 .2 [facility] [address] [id number] [address] [place] [id number] 27 Jun, 2018 Schizophrenia, 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 [facility] [address] [id number] [address] [place] [id number] 07 Jun, 2018 Schizophrenia, 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 [place] [id number] [phone] 08 May, 2018 Schizophrenia, 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 [facility] [id number] [place] [phone] Feb, Schizophrenia, 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 [facility] [address] [id number] [address] [place] [id number] December, Schizophrenia, 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 [facility] [address] [id number] [address] [place] [phone] Oct, Schizophrenia, 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 [facility] [address] [id number] [address] [place] [id number] 07 Sep, 2017 [facility] [address] [id number] [address] [place] [id number] 14 Jul, 2017 Schizophrenia, 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 [facility] [address] [id number] [address] [place] [id number] 08 Jul, 2017 Schizophrenia, 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 [facility] [address] [id number] [address] [place] [address], [place] [phone] 16 Jun, 2017 Schizophrenia, 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 [facility] [address] [id number] [address] [place] [address], [place] [address] 14 Apr, 2017 Schizophrenia, 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 [facility] [address] [id number] [address] [place] [id number] Feb, Schizophrenia, 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 [facility] [address] [id number] [address] [place] [address], [place] [phone] 15 Jan, 2017 Schizophrenia, 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 [facility] [address] [id number] [address] [place] [id number] 14 Oct, 2016 Schizophrenia, 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 [facility] [address] [id number] [address] [place] [id number] 15 Jul, 2016 Schizophrenia, 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 [facility] [address] [id number] [address] [place] [id number] 09 Jun, 2016 [facility] [address] [id number] [address] [place] [id number] 15 Apr, 2016 Disorganized schizophrenia F 20.1 [facility] [address] [id number] [address] [place] [phone] Mar, [facility] [address] [id number] [address] [place] [id number] 16 Jan, 2016 Schizophrenia, 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 [facility] [address] [id number] [address] [place] [address], [place] [address] December, [facility] [address] [id number] [address] [place] [id number] Nov, [facility] [address] [id number] [address] [place] [id number] Oct, Disorganized schizophrenia, 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 [facility] [address] [id number] [address] [place] [phone] Oct, [facility] [address] [id number] [address] [place] [id number] Sep, [facility] [address] [id number] [address] [place] [id number] Sep, [facility] [address] [id number] [address] [place] [id number] Sep, [facility] [address] [id number] [address] [place] [id number] Aug, [facility] [address] [id number] [address] [place] [id number] Aug, Disorganized schizophrenia F 20.1 [facility] [address] [id number] [address] [place] [id number] Aug, [facility] [address] [id number] [address] [place] [id number] May, [facility] [address] [id number] [address] [place] [id number] May, Schizophrenia, 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 [facility] [address] [id number] [address] [place] [id number] Feb, Disorganized schizophrenia, 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 [facility] [address] [id number] [address] [place] [id number] December, Disorganized schizophrenia, 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 [facility] [address] [id number] [address] [place] [id number] Nov, [facility] [address] [id number] [address] [place] [id number] Nov, [facility] [address] [id number] [address] [place] [id number] Jun, [facility] [address] [id number] [address] [place] [id number] Jun, [facility] [address] [id number] [address] [place] [address], [place] [address] Mar, [facility] [address] [id number] [address] [place] [address], [place] [address] Mar, [facility] [address] [id number] [address] [place] [address], [place] [address] December, [facility] [address] [id number] [address] [place] [address], [place] [address] December, [facility] [address] [id number] [address] [place] [address], [place] [address] Sep, [facility] [address] [id number] [address] [place] [address], [place] [address] Sep, [facility] [address] [id number] [address] [place] [address], [place] [address] Sep, [facility] [address] [id number] [address] [place] [address], [place] [phone] Sep, [facility] [address] [id number] [address] [place] [address], [place] [address] Jun, [facility] [address] [id number] [address] [place] [address], [place] [address] Jun, [facility] [address] [id number] [address] [place] [address], [place] [address] May, [facility] [address] [id number] [address] [place] [address], [place] [address] May, [facility] [address] [id number] [address] [place] [address], [place] [address] Apr, [facility] [address] [id number] [address] [place] [address], [place] [address] Mar, [facility] [address] [id number] [address] [place] [address], [place] [address] Jan, [facility] [address] [id number] [address] [place] [address], [place] [address] 18 Jan, 2013 [facility] [address] [id number] [address] [place] [address], [place] [address] 26 Nov, 2012 [facility] [address] [id number] [address] [place] [address], [place] [address] 25 Nov, 2012 [facility] [address] [id number] [address] [place] [address], [place] [address] 23 Nov, 2012 [facility] [address] [id number] [address] [place] [address], [place] [address] 17 Nov, 2012 [facility] [address] [id number] [address] [place] [address], [place] [address] 16 Nov, 2012 [facility] [address] [id number] [address] [place] [address], [place] [address] 12 Nov, 2012 [facility] [address] [id number] [address] [place] [address], [place] [address] 11 Nov, 2012 [facility] [address] [id number] [address] [place] [address], [place] [address] 08 Nov, 2012 [facility] [address] [id number] [address] [place] [address], [place] [address] 27 Oct, 2012 [facility] [address] [id number] [address] [place] [address], [place] [address] 07 Oct, 2012 [facility] [address] [id number] [address] [place] [address], [place] [phone] 05 Oct, 2012 [facility] [address] [id number] [address] [place] [address], [place] [address] Jul, [facility] [address] [id number] [address] [place] [address], [place] [address] Jul, [facility] [address] [id number] [address] [place] [address], [place] [address] 27 Apr, 2012 [facility] [address] [id number] [address] [place] [address], [place] [address] Jan, [facility] [address] [id number] [address] [place] [id number] Oct, [facility] [address] [id number] [address] [place] [id number] Oct, [facility] [address] [id number] [address] [place] [id number] Sep, [facility] [address] [id number] [address] [place] [id number] Sep, [facility] [address] [id number] [address] [place] [phone] Aug, [facility] [address] [id number] [address] [place] [phone] Jul, [facility] [address] [facility] [id number] [address] [place] [id number] Jun, [facility] [address] [id number] [address] [place] [id number] Jun, [facility] [address] [facility] [id number] [address] [place] [id number] Jan, IMMUNIZATIONS No Known Immunizations SOCIAL HISTORY Never Assessed REASON FOR VISIT PLAN OF CARE VITAL SIGNS Height 68 in 2014-04-08 Weight 191.4 lbs 2014-04-08 Temperature 97 degrees Fahrenheit 2014-04-08 Heart Rate 68 bpm 2014-04-08 Blood pressure systolic 90 mmHg 2014-04-08 Blood pressure diastolic 62 mmHg 2014-04-08 MEDICATIONS Unknown Medications RESULTS No Results PROCEDURES No Known procedures INSTRUCTIONS MEDICATIONS ADMINISTERED No Known Medications MEDICAL (GENERAL) HISTORY Type Description Date Medical History Disorganized schizophrenia, chronic cond ition Surgical History No Surgical history information Hospitalization History pneumonia 09/2018
--- OUTSIDE RECORDS SUMMARY | 2020-01-12 07:35 | XMS REPORT ---
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 Ac tive [id number] ALLERGIES No Information ENCOUNTERS Encounter Location Date Diagnosis [facility] [address] [id number] [address] [place] [phone] Jan, [facility] [address] [id number] [address] [place] [address] Nov, [facility] [address] [id number] [address] [place] [id number] Oct, Dental examination Z01.20 ; Caries K02.9 and 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 [facility] [address] [id number] [address] [place] [phone] Sep, Schizophrenia, 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 [facility] [address] [id number] [address] [place] [phone] Sep, Schizophrenia, 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 [facility] [address] [id number] [address] [place] [id number] Jul, Schizophrenia, 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 [facility] [address] [id number] [address] [place] [phone] May, [facility] [address] [facility] [id number] [address] [place] [phone] May, Schizophrenia, 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 [facility] [address] [id number] [address] [place] [phone] Apr, Schizophrenia, 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 [facility] [address] [facility] [id number] [address] [place] [phone] Apr, Encounter for immunization Z 23 [facility] [address] [facility] [id number] [address] [place] [phone] Mar, [facility] [address] [id number] [phone] Mar, Schizophrenia, 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 [facility] [address] [facility] [id number] [address] [place] [phone] Jan, Schizophrenia, 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 [facility] [address] [id number] Jan, Dental examination Z01.20 [facility] [address] [id number] Nov, 2018 Caries K02.9 ; Dental examin ation Z01.20 and Oral health maintenance status requiring routine preventive dental care K08.9 [facility] [address] [facility] [id number] [address] [place] [phone] Nov, Schizophrenia, 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 [facility] [address] [id number] [address] [place] [phone] Oct, Schizophrenia, 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 [facility] [id number] [place] [phone] 14 Sep, 2018 Follow up Z09 [facility] [address] [facility] [id number] [address] [place] [phone] 08 Sep, 2018 [facility] [address] [facility] [id number] [address] [place] [phone] 02 Sep, 2018 Fever in other diseases R50. 81 and Cough R05 [facility] [address] [facility] [id number] [address] [place] [phone] Aug, Viral upper respiratory trac t infection J06.9 [facility] [address] [id number] [address] [place] [address], [place] [address] 07 Aug, 2018 Fever R50.9 and Wheezing R06 .2 [facility] [address] [id number] [address] [place] [address], [place] [address] 27 Jun, 2018 Schizophrenia, 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 [facility] [address] [facility] [id number] [address] [place] [address], [place] [address] 07 Jun, 2018 Schizophrenia, 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 [facility] [address] [facility] [id number] [address] [place] [address], [place] [address] 08 May, 2018 Schizophrenia, 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 [facility] [address] [id number] [address] [place] [address], [place] [address] 17 Feb, 2018 Schizophrenia, 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 [facility] [address] [facility] [id number] [address] [place] [address], [place] [address] December, Schizophrenia, 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 [facility] [address] [facility] [id number] [address] [place] [id number] 15 Oct, 2017 Schizophrenia, 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 [facility] [address] [id number] [address] [place] [address], [place] [address] 07 Sep, 2017 [facility] [address] [facility] [id number] [address] [place] [address], [place] [address] 14 Jul, 2017 Schizophrenia, 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 [facility] [address] [facility] [id number] [address] [place] [phone] 08 Jul, 2017 Schizophrenia, 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 [facility] [address] [facility] [id number] [address] [place] [id number] 16 Jun, 2017 Schizophrenia, 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 [facility] [address] [facility] [id number] [address] [place] [id number] 14 Apr, 2017 Schizophrenia, 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 [facility] [address] [facility] [id number] [address] [place] [phone] Feb, Schizophrenia, 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 [facility] [address] [id number] [address] [place] [address], [place] [id number] 15 Jan, 2017 Schizophrenia, 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 [facility] [address] [id number] [address] [place] [address], [place] [address] 14 Oct, 2016 Schizophrenia, 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 [facility] [address] [id number] [address] [place] [address], [place] [id number] 15 Jul, 2016 Schizophrenia, 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 [facility] [address] [id number] [address] [place] [address], [place] [address] 09 Jun, 2016 [facility] [address] [id number] [address] [place] [address], [place] [address] 15 Apr, 2016 Disorganized schizophrenia F 20.1 [facility] [address] [id number] [address] [place] [address], [place] [address] Mar, [facility] [address] [id number] [address] [place] [address], [place] [address] Jan, Schizophrenia, 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 [facility] [address] [id number] [address] [place] [address], [place] [address] December, [facility] [address] [id number] [address] [place] [id number] Nov, [facility] [address] [id number] [address] [place] [address], [place] [address] 29 Oct, 2015 Disorganized schizophrenia, 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 [facility] [address] [id number] [address] [place] [address], [place] [address] 15 Oct, 2015 [facility] [address] [id number] [address] [place] [address], [place] [address] Sep, [facility] [address] [id number] [address] [place] [phone] Sep, [facility] [address] [id number] [address] [place] [address], [place] [address] Sep, [facility] [address] [id number] [address] [place] [address], [place] [address] Aug, [facility] [address] [id number] [address] [place] [phone] Aug, Disorganized schizophrenia F 20.1 [facility] [address] [id number] [address] [place] [address], [place] [address] Aug, [facility] [address] [id number] [address] [place] [address], [place] [address] May, [facility] [address] [id number] [address] [place] [phone] May, Schizophrenia, 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 [facility] [address] [id number] [address] [place] [id number] Feb, Disorganized schizophrenia, 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 [facility] [address] [id number] [address] [place] [phone] December, Disorganized schizophrenia, 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 [facility] [address] [id number] [address] [place] [phone] Nov, [facility] [address] [id number] [address] [place] [address], [place] [address] Nov, [facility] [address] [id number] [address] [place] [phone] Jun, [facility] [address] [id number] [address] [place] [address], [place] [address] Jun, [facility] [address] [id number] [address] [place] [phone] Mar, [facility] [address] [id number] [address] [place] [address], [place] [address] Mar, [facility] [address] [id number] [address] [place] [phone] December, [facility] [address] [id number] [address] [place] [phone] December, [facility] [address] [id number] [address] [place] [address], [place] [address] Sep, [facility] [address] [id number] [address] [place] [address], [place] [address] Sep, [facility] [address] [id number] [address] [place] [address], [place] [address] Sep, [facility] [address] [id number] [address] [place] [address], [place] [address] Sep, [facility] [address] [id number] [address] [place] [address], [place] [address] Jun, [facility] [address] [id number] [address] [place] [address], [place] [address] Jun, [facility] [address] [id number] [address] [place] [address], [place] [address] May, [facility] [address] [id number] [address] [place] [address], [place] [address] May, [facility] [address] [id number] [address] [place] [address], [place] [address] Apr, [facility] [address] [id number] [address] [place] [phone] Mar, [facility] [address] [id number] [address] [place] [address], [place] [address] Jan, [facility] [address] [id number] [address] [place] [phone] Jan, [facility] [address] [id number] [address] [place] [address], [place] [address] Nov, [facility] [address] [id number] [address] [place] [address], [place] [address] Nov, [facility] [address] [id number] [address] [place] [address], [place] [address] Nov, [facility] [address] [id number] [address] [place] [id number] 17 Nov, 2012 [facility] [address] [id number] [address] [place] [address], [place] [address] 16 Nov, 2012 [facility] [address] [id number] [address] [place] [address], [place] [address] 12 Nov, 2012 [facility] [address] [id number] [address] [place] [address], [place] [address] 11 Nov, 2012 [facility] [address] [id number] [address] [place] [address], [place] [address] 08 Nov, 2012 [facility] [address] [id number] [address] [place] [address], [place] [address] 27 Oct, 2012 [facility] [address] [id number] [address] [place] [address], [place] [address] 07 Oct, 2012 [facility] [address] [id number] [address] [place] [address], [place] [address] 05 Oct, 2012 [facility] [place] [address] [id number] [address] [place] [address], [place] [address] Jul, [facility] [place] [address] [id number] [address] [place] [address], [place] [address] Jul, [facility] [place] [address] [id number] [address] [place] [address], [place] [address] 27 Apr, 2012 [facility] [place] [address] [id number] [address] [place] [address], [place] [address] Jan, [facility] [address] [id number] [address] [place] [address], [place] [address] Oct, [facility] [address] [id number] [address] [place] [address], [place] [address] 15 Oct, 2011 [facility] [address] [id number] [address] [place] [address], [place] [address] Sep, [facility] [address] [id number] [address] [place] [address], [place] [address] Sep, [facility] [address] [facility] [id number] [address] [place] [phone] Aug, [facility] [address] [facility] [facility] [id number] [address] [place] [id number] Jul, [facility] [address] [facility] [facility] [id number] [address] [place] [phone] Jun, [facility] [address] [facility] [facility] [id number] [address] [place] [id number] Jun, [facility] [address] [facility] [facility] [id number] [address] [place] [phone] Jan, IMMUNIZATIONS No Known Immunizations SOCIAL HISTORY Never Assessed REASON FOR VISIT PLAN OF CARE VITAL SIGNS MEDICATIONS Unknown Medications RESULTS No Results PROCEDURES No Known procedures INSTRUCTIONS MEDICATIONS ADMINISTERED No Known Medications MEDICAL (GENERAL) HISTORY Type Description Date Medical History Disorganized schizophrenia, chronic cond ition Surgical History teeth surgically removed 02/2019 Hospitalization History pneumonia 09/2018
--- OUTSIDE RECORDS SUMMARY | 2020-01-12 07:35 | XMS REPORT ---
Author Author Asher Tinajero Organization [facility] Address [address] [place] [address] Care Team Providers Care Textile Screen Maker Name Role Phone NHUNG Tinajero Unavailable PROBLEMS Type Condition ICD9-CM Code [id number] Code Onset Dates Condition S tatus SNOMED Code Problem Schizophrenia, 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 Ac tive [id number] ALLERGIES No Information ENCOUNTERS Encounter Location Date Diagnosis [facility] [address] [id number] [address] [place] [phone] Apr, [facility] [address] [id number] [address] [place] [phone] Mar, [facility] [address] [place] [address] Mar, Schizophrenia, 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 [facility] [address] [facility] [id number] [address] [place] [phone] Jan, Schizophrenia, 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 [facility] [address] [id number] [address] [place] [id number] Jan, Dental examination Z01.20 [facility] [address] [id number] [address] [place] [address] [id number] Nov, Caries K02.9 ; Dental examin ation Z01.20 and Oral health maintenance status requiring routine preventive dental care K08.9 [facility] [address] [facility] [id number] [address] [place] [phone] Nov, Schizophrenia, 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 [facility] [address] [facility] [id number] [address] [place] [phone] Oct, Schizophrenia, 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 [facility] [address] [place] [address] Sep, Follow up Z09 [facility] [address] [facility] [id number] [address] [place] [phone] 08 Sep, 2018 [facility] [address] [facility] [id number] [address] [place] [phone] 02 Sep, 2018 Fever in other diseases R50. 81 [address] Cough R[address] [facility] [address] [id number] [address] [place] [phone] Aug, Viral upper respiratory trac t infection J06.9 [facility] [address] [id number] [address] [place] [phone] Aug, Fever R50.9 and Wheezing R06 .2 [facility] [address] [id number] [address] [place] [phone] 27 Jun, 2018 Schizophrenia, 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 [facility] [address] [id number] [address] [place] [phone] 07 Jun, 2018 Schizophrenia, 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 [place] [id number] [phone] 08 May, 2018 Schizophrenia, 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 [facility] [id number] [place] [phone] Feb, Schizophrenia, 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 [facility] [address] [id number] [address] [place] [phone] December, Schizophrenia, 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 [facility] [address] [id number] [address] [place] [phone] Oct, Schizophrenia, 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 [facility] [address] [id number] [address] [place] [id number] 07 Sep, 2017 [facility] [address] [id number] [address] [place] [id number] 14 Jul, 2017 Schizophrenia, 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 [facility] [address] [id number] [address] [place] [id number] 08 Jul, 2017 Schizophrenia, 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 [facility] [address] [id number] [address] [place] [address], [place] [address] 16 Jun, 2017 Schizophrenia, 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 [facility] [address] [id number] [address] [place] [address], [place] [address] 14 Apr, 2017 Schizophrenia, 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 [facility] [address] [id number] [address] [place] [phone] Feb, Schizophrenia, 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 [facility] [address] [id number] [address] [place] [address], [place] [address] 15 Jan, 2017 Schizophrenia, 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 [facility] [address] [id number] [address] [place] [id number] 14 Oct, 2016 Schizophrenia, 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 [facility] [address] [id number] [address] [place] [id number] 15 Jul, 2016 Schizophrenia, 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 [facility] [address] [id number] [address] [place] [phone] 09 Jun, 2016 [facility] [address] [id number] [address] [place] [id number] 15 Apr, 2016 Disorganized schizophrenia F 20.1 [facility] [address] [id number] [address] [place] [phone] Mar, [facility] [address] [id number] [address] [place] [id number] 16 Jan, 2016 Schizophrenia, 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 [facility] [address] [id number] [address] [place] [address], [place] [address] December, [facility] [address] [id number] [address] [place] [phone] Nov, [facility] [address] [id number] [address] [place] [phone] Oct, Disorganized schizophrenia, 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 [facility] [address] [id number] [address] [place] [phone] Oct, [facility] [address] [id number] [address] [place] [phone] Sep, [facility] [address] [id number] [address] [place] [phone] Sep, [facility] [address] [id number] [address] [place] [phone] Sep, [facility] [address] [id number] [address] [place] [phone] Aug, [facility] [address] [id number] [address] [place] [phone] Aug, Disorganized schizophrenia F 20.1 [facility] [address] [id number] [address] [place] [phone] Aug, [facility] [address] [id number] [address] [place] [phone] May, [facility] [address] [id number] [address] [place] [id number] May, Schizophrenia, 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 [facility] [address] [id number] [address] [place] [phone] Feb, Disorganized schizophrenia, 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 [facility] [address] [id number] [address] [place] [phone] December, Disorganized schizophrenia, 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 [facility] [address] [id number] [address] [place] [phone] Nov, [facility] [address] [id number] [address] [place] [phone] Nov, [facility] [address] [id number] [address] [place] [phone] Jun, [facility] [address] [id number] [address] [place] [phone] Jun, [facility] [address] [id number] [address] [place] [address], [place] [address] Mar, [facility] [address] [id number] [address] [place] [address], [place] [address] Mar, [facility] [address] [id number] [address] [place] [address], [place] [address] December, [facility] [address] [id number] [address] [place] [address], [place] [address] December, [facility] [address] [id number] [address] [place] [address], [place] [address] Sep, [facility] [address] [id number] [address] [place] [address], [place] [address] Sep, [facility] [address] [id number] [address] [place] [address], [place] [address] Sep, [facility] [address] [id number] [address] [place] [address], [place] [address] Sep, [facility] [address] [id number] [address] [place] [address], [place] [address] Jun, [facility] [address] [id number] [address] [place] [address], [place] [address] Jun, [facility] [address] [id number] [address] [place] [address], [place] [address] May, [facility] [address] [id number] [address] [place] [address], [place] [address] May, [facility] [address] [id number] [address] [place] [address], [place] [address] Apr, [facility] [address] [id number] [address] [place] [address], [place] [address] Mar, [facility] [address] [id number] [address] [place] [address], [place] [address] Jan, [facility] [address] [id number] [address] [place] [address], [place] [address] 18 Jan, 2013 [facility] [address] [id number] [address] [place] [address], [place] [address] 26 Nov, 2012 [facility] [address] [id number] [address] [place] [address], [place] [address] 25 Nov, 2012 [facility] [address] [id number] [address] [place] [address], [place] [address] 23 Nov, 2012 [facility] [address] [id number] [address] [place] [address], [place] [address] 17 Nov, 2012 [facility] [address] [id number] [address] [place] [address], [place] [address] 16 Nov, 2012 [facility] [address] [id number] [address] [place] [address], [place] [address] 12 Nov, 2012 [facility] [address] [id number] [address] [place] [address], [place] [address] 11 Nov, 2012 [facility] [address] [id number] [address] [place] [address], [place] [address] 08 Nov, 2012 [facility] [address] [id number] [address] [place] [address], [place] [address] 27 Oct, 2012 [facility] [address] [id number] [address] [place] [address], [place] [address] 07 Oct, 2012 [facility] [address] [id number] [address] [place] [address], [place] [address] 05 Oct, 2012 [facility] [address] [id number] [address] [place] [address], [place] [address] Jul, [facility] [address] [id number] [address] [place] [address], [place] [address] Jul, [facility] [address] [id number] [address] [place] [address], [place] [address] 27 Apr, 2012 [facility] [address] [id number] [address] [place] [address], [place] [address] Jan, [facility] [address] [id number] [address] [place] [phone] Oct, [facility] [address] [id number] [address] [place] [phone] Oct, [facility] [address] [id number] [address] [place] [phone] Sep, [facility] [address] [id number] [address] [place] [phone] Sep, [facility] [address] [id number] [address] [place] [phone] Aug, [facility] [address] [facility] [id number] [address] [place] [phone] Jul, [facility] [address] [facility] [id number] [address] [place] [phone] Jun, [facility] [address] [id number] [address] [place] [phone] Jun, [facility] [address] [facility] [id number] [address] [place] [phone] Jan, IMMUNIZATIONS No Known Immunizations SOCIAL HISTORY Never Assessed REASON FOR VISIT PLAN OF CARE VITAL SIGNS Height 67.75 in 2014-07-09 Weight 191.5 lbs 2014-07-09 Temperature 97.3 degrees Fahrenheit 2014-07-09 Heart Rate 64 bpm 2014-07-09 Respiratory Rate 28 2014-07-09 Blood pressure systolic 102 mmHg 2014-07-09 Blood pressure diastolic 72 mmHg 2014-07-09 MEDICATIONS Unknown Medications RESULTS No Results PROCEDURES No Known procedures INSTRUCTIONS MEDICATIONS ADMINISTERED No Known Medications MEDICAL (GENERAL) HISTORY Type Description Date Medical History Disorganized schizophrenia, chronic cond ition Surgical History No Surgical history information Hospitalization History pneumonia 09/2018
--- OUTSIDE RECORDS SUMMARY | 2020-01-12 07:35 | XMS REPORT ---
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 Ac tive [id number] ALLERGIES No Information ENCOUNTERS Encounter Location Date Diagnosis [facility] [address] [address] Jan, [facility] [address] [address] Sep, Schizophrenia, 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 [place] [address] [address] Sep, Schizophrenia, 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 [facility] [address] [address] Jul, Schizophrenia, 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 [facility] [address] [address] May, [facility] [address] [address] May, Schizophrenia, 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 [facility] [address] [address] Apr, Schizophrenia, 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 [facility] [address] [address] Apr, Encounter for immunization Z23 [facility] [address] [address] Mar, [facility] [address] [facility] [place] [address] Mar, Schizophrenia, 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 [facility] [address] [address] Jan, Schizophrenia, 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 [facility] [id number] [place] [id number] 06 Jan, 2019 Dental examination Z01.20 [facility] [address] [id number] 16 Nov, 2018 Caries K02.9 ; Dental examination Z01.20 and Oral health maintenance status requiring routine preventive dental care K08.9 [facility] [id number] [place] [address] 15 Nov, 2018 Schizophrenia, 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 [facility] [address] [address] Oct, Schizophrenia, 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 [facility] [address] [facility] [address] 14 Sep, 2018 Follow up Z09 [place] [address] [address] 08 Sep, 2018 [facility] [address] [place] [address] 02 Sep, 2018 Fever in other diseases R50. 81 and Cough R05 [facility] [address] [place], [place] [id number] [address] [place] [address] Aug, Viral upper respiratory trac t infection J06.9 [facility] [address] [place] [address] Aug, Fever R50.9 and Wheezing R06 .2 [facility] [address] [address] Jun, Schizophrenia, 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 [place] [address] [address] Jun, Schizophrenia, disorganized F20.1 [facility] [address] [address] 08 May, 2018 Schizophrenia, disorganized F20.1 [place] [address] [facility] [place] [address] 17 Feb, 2018 Schizophrenia, disorganized F20.1 [facility] [address] [facility] [place] [address] 10 Dec, 2017 Schizophrenia, disorganized F20.1 [facility] [address] [facility] [place] [address] 15 Oct, 2017 Schizophrenia, disorganized F20.1 [facility] [address] [facility] [place] [address] 07 Sep, 2017 [facility] [address] [facility] [place] [address] 14 Jul, 2017 Schizophrenia, disorganized F20.1 [facility] [id number] [place] [address] 08 Jul, 2017 Schizophrenia, disorganized F20.1 [facility] [id number] [place] [address] 16 Jun, 2017 Schizophrenia, disorganized F20.1 [facility] [id number] [place] [address] 14 Apr, 2017 Schizophrenia, disorganized F20.1 [facility] [id number] [place] [address] 11 Feb, 2017 Schizophrenia, disorganized F20.1 [facility] [address] [facility] [place] [address] 15 Jan, 2017 Schizophrenia, disorganized F20.1 [facility] [address] [facility] [place] [address] 14 Oct, 2016 Schizophrenia, disorganized F20.1 [facility] [address] [facility] [place] [address] 15 Jul, 2016 Schizophrenia, disorganized F20.1 [facility] [id number] [place] [address] 09 Jun, 2016 [facility] [address] [facility] [place] [address] 15 Apr, 2016 Disorganized schizophrenia F20.1 [facility] [address] [facility] [place] [address] Mar, [facility] [id number] [place] [address] Jan, Schizophrenia, disorganized F20.1 [facility] [address] [facility] [place] [address] December, [facility] [id number] [place] [address] Nov, [facility] [address] [facility] [place] [address] Oct, Disorganized schizophrenia, 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 [facility] [id number] [place] [address] Oct, [facility] [id number] [place] [address] Sep, [facility] [id number] [place] [address] Sep, [facility] [id number] [place] [address] Sep, [facility] [id number] [place] [address] Aug, [facility] [id number] [place] [address] Aug, Disorganized schizophrenia F20.1 [facility] [id number] [place] [address] Aug, [facility] [address] [facility] [place] [address] May, [facility] [id number] [place] [address] May, Schizophrenia, disorganized F20.1 [facility] [address] [facility] [place] [address] Feb, Disorganized schizophrenia, 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 [facility] [id number] [place] [address] December, Disorganized schizophrenia, 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 [facility] [id number] [place] [address] 14 Nov, 2014 [facility] [id number] [place] [address] Nov, [facility] [id number] [place] [address] Jun, [facility] [id number] [place] [address] Jun, [facility] [id number] [place] [address] Mar, [facility] [id number] [place] [address] Mar, [facility] [id number] [place] [address] December, [facility] [id number] [place] [address] December, [facility] [id number] [place] [address] Sep, [facility] [id number] [place] [address] 18 Sep, 2013 [facility] [id number] [place] [address] Sep, [facility] [id number] [place] [address] Sep, [facility] [id number] [place] [address] Jun, [facility] [id number] [place] [address] 14 Jun, 2013 [facility] [id number] [place] [address] 24 May, 2013 [facility] [id number] [place] [address] 24 May, 2013 [facility] [address] [facility] [facility] [address] Apr, [facility] [address] [facility] [place] [address] Mar, [facility] [address] [facility] [place] [address] Jan, [facility] [address] [facility] [place] [address] Jan, [facility] [address] [facility] [place] [address] Nov, [facility] [address] [facility] [place] [address] Nov, [facility] [address] [facility] [place] [address] Nov, [facility] [address] [facility] [place] [address] 17 Nov, 2012 [facility] [address] [facility] [place] [address] 16 Nov, 2012 [facility] [address] [facility] [place] [address] 12 Nov, 2012 [facility] [address] [facility] [place] [address] Nov, [facility] [address] [facility] [place] [address] 08 Nov, 2012 [facility] [address] [facility] [place] [address] 27 Oct, 2012 [facility] [address] [facility] [place] [address] 07 Oct, 2012 [facility] [address] [facility] [place] [address] 05 Oct, 2012 [facility] [address] [facility] [place] [address] Jul, [facility] [address] [facility] [place] [address] Jul, [facility] [id number] [place] [address] Apr, [facility] [id number] [place] [address] Jan, [facility] [id number] [place] [address] Oct, [facility] [id number] [place] [address] Oct, [facility] [id number] [place] [address] Sep, [facility] [id number] [place] [address] Sep, [facility] [id number] [place] [address] Aug, [facility] [id number] [place] [address] Jul, [facility] [id number] [place] [address] Jun, [facility] [id number] [place] [address] Jun, [facility] [id number] [place] [address] Jan, IMMUNIZATIONS No Known Immunizations SOCIAL HISTORY Never Assessed REASON FOR VISIT PLAN OF CARE VITAL SIGNS Weight 195 lbs 2013-10-06 Temperature 98 degrees Fahrenheit 2013-10-06 Heart Rate 88 bpm 2013-10-06 Respiratory Rate 28 2013-10-06 Blood pressure systolic 120 mmHg 2013-10-06 Blood pressure diastolic 88 mmHg 2013-10-06 MEDICATIONS Unknown Medications RESULTS No Results PROCEDURES No Known procedures INSTRUCTIONS MEDICATIONS ADMINISTERED No Known Medications MEDICAL (GENERAL) HISTORY Type Description Date Medical History Disorganized schizophrenia, chronic cond ition Surgical History teeth surgically removed 02/2019 Hospitalization History pneumonia 09/2018
--- OUTSIDE RECORDS SUMMARY | 2020-01-12 07:36 | XMS REPORT ---
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 Ac tive [id number] Problem Disorganized schizophrenia, 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 Active [id number] ALLERGIES No Information ENCOUNTERS Encounter Location Date Diagnosis [facility] [address] [facility] [id number] [address] [place] [address] Jun, [facility] [address] [facility] [id number] [address] [place] [address] Jun, Schizophrenia, disorganized F20.1 [facility] [address] [facility] [id number] [address] [place] [address] May, Schizophrenia, disorganized F20.1 [facility] [address] [facility] [id number] [address] [place] [address] Feb, Schizophrenia, disorganized F20.1 [facility] [address] [facility] [id number] [address] [place] [address] December, Schizophrenia, disorganized F20.1 [facility] [address] [id number] [address] [place] [address] Oct, Schizophrenia, disorganized F20.1 [facility] [address] [id number] [address] [place] [address] 07 Sep, 2017 [facility] [address] [facility] [id number] [address] [place] [address] 14 Jul, 2017 Schizophrenia, disorganized F20.1 [facility] [address] [id number] [address] [place] [address], [place] [address] 08 Jul, 2017 Schizophrenia, disorganized F20.1 [facility] [address] [id number] [address] [place] [address], [place] [address] 16 Jun, 2017 Schizophrenia, disorganized F20.1 [facility] [address] [id number] [address] [place] [address], [place] [address] 14 Apr, 2017 Schizophrenia, disorganized F20.1 [facility] [address] [id number] [address] [place] [address], [place] [address] Feb, Schizophrenia, disorganized F20.1 [facility] [address] [id number] [address] [place] [address], [place] [address] 15 Jan, 2017 Schizophrenia, disorganized F20.1 [facility] [address] [id number] [address] [place] [address], [place] [address] 14 Oct, 2016 Schizophrenia, disorganized F20.1 [facility] [address] [id number] [address] [place] [address] 15 Jul, 2016 Schizophrenia, disorganized F20.1 [facility] [address] [id number] [address] [place] [address], [place] [address] 09 Jun, 2016 [facility] [address] [id number] [address] [place] [address] 15 Apr, 2016 Disorganized schizophrenia F 20.1 [facility] [address] [id number] [address] [place] [address] Mar, [facility] [address] [id number] [address] [place] [address] 16 Jan, 2016 Schizophrenia, disorganized F20.1 [facility] [address] [id number] [address] [place] [address], [place] [address] December, [facility] [address] [id number] [address] [place] [address], [place] [address] Nov, [facility] [address] [id number] [address] [place] [address] 29 Oct, 2015 Disorganized schizophrenia, 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 [facility] [address] [id number] [address] [place] [address] Oct, [facility] [address] [id number] [address] [place] [address] Sep, [facility] [address] [id number] [address] [place] [address] Sep, [facility] [address] [id number] [address] [place] [address] Sep, [facility] [address] [id number] [address] [place] [address], [place] [address] Aug, [facility] [address] [id number] [address] [place] [address] Aug, Disorganized schizophrenia F 20.1 [facility] [address] [id number] [address] [place] [address] Aug, [facility] [address] [id number] [address] [place] [address] May, [facility] [address] [id number] [address] [place] [address] May, Schizophrenia, disorganized F20.1 [facility] [address] [id number] [address] [place] [address] Feb, Disorganized schizophrenia, 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 [facility] [address] [id number] [address] [place] [address] December, Disorganized schizophrenia, 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 [facility] [address] [id number] [address] [place] [address] Nov, [facility] [address] [id number] [address] [place] [address] Nov, [facility] [address] [id number] [address] [place] [address] Jun, [facility] [address] [id number] [address] [place] [address] Jun, [facility] [address] [id number] [address] [place] [address], [place] [address] Mar, [facility] [address] [id number] [address] [place] [address], [place] [address] Mar, [facility] [address] [id number] [address] [place] [address], [place] [address] December, [facility] [address] [id number] [address] [place] [address], [place] [address] December, [facility] [address] [id number] [address] [place] [address], [place] [address] Sep, [facility] [address] [id number] [address] [place] [address], [place] [address] Sep, [facility] [address] [id number] [address] [place] [address], [place] [address] Sep, [facility] [address] [id number] [address] [place] [address], [place] [address] Sep, [facility] [address] [id number] [address] [place] [address], [place] [address] Jun, [facility] [address] [id number] [address] [place] [address], [place] [address] Jun, [facility] [address] [id number] [address] [place] [address], [place] [address] May, [facility] [address] [id number] [address] [place] [address], [place] [address] May, [facility] [address] [id number] [address] [place] [address], [place] [address] Apr, [facility] [address] [id number] [address] [place] [address], [place] [address] Mar, [facility] [address] [id number] [address] [place] [address], [place] [address] Jan, [facility] [address] [id number] [address] [place] [address], [place] [address] 18 Jan, 2013 [facility] [address] [id number] [address] [place] [address], [place] [address] Nov, [facility] [address] [id number] [address] [place] [address], [place] [address] Nov, [facility] [address] [id number] [address] [place] [address], [place] [address] 23 Nov, 2012 [facility] [address] [id number] [address] [place] [address], [place] [address] 17 Nov, 2012 [facility] [address] [id number] [address] [place] [address], [place] [address] 16 Nov, 2012 [facility] [address] [id number] [address] [place] [address], [place] [address] Nov, [facility] [address] [id number] [address] [place] [address], [place] [address] Nov, [facility] [address] [id number] [address] [place] [address], [place] [address] 08 Nov, 2012 [facility] [address] [id number] [address] [place] [address], [place] [address] Oct, [facility] [address] [id number] [address] [place] [address], [place] [address] Oct, [facility] [address] [id number] [address] [place] [address], [place] [address] 05 Oct, 2012 [facility] [address] [id number] [address] [place] [address], [place] [address] Jul, [facility] [address] [id number] [address] [place] [address], [place] [address] Jul, [facility] [address] [id number] [address] [place] [address], [place] [address] Apr, [facility] [address] [id number] [address] [place] [id number] Jan, [facility] [address] [id number] [address] [place] [id number] Oct, [facility] [address] [id number] [address] [place] [id number] Oct, [facility] [address] [id number] [address] [place] [id number] Sep, [facility] [address] [id number] [address] [place] [phone] Sep, [facility] [address] [id number] [address] [place] [id number] Aug, [facility] [address] [id number] [address] [place] [phone] Jul, [facility] [address] [id number] [address] [place] [id number] Jun, [facility] [address] [id number] [address] [place] [phone] Jun, [facility] [address] [id number] [address] [place] [id number] Jan, IMMUNIZATIONS No Known Immunizations SOCIAL HISTORY Never Assessed REASON FOR VISIT Controlled Med Refill PLAN OF CARE VITAL SIGNS MEDICATIONS Medication Instructions Dosage Frequency Start Date End Date Duration S tatus Clonazepam 1 MG Orally twice a day as needed for anxiety 1 tablet 30 days Active RESULTS No Results PROCEDURES No Known procedures INSTRUCTIONS MEDICATIONS ADMINISTERED No Known Medications MEDICAL (GENERAL) HISTORY Type Description Date Medical History Disorganized schizophrenia, chronic cond ition
--- OUTSIDE RECORDS SUMMARY | 2020-01-12 07:36 | XMS REPORT ---
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 Ac tive 55385670 Problem Disorganized schizophrenia, 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 Active [id number] ALLERGIES No Information ENCOUNTERS Encounter Location Date Diagnosis [facility] [address] [facility] [id number] [address] [place] [phone] Oct, [facility] [address] [facility] [id number] [address] [place] [address] Jun, Schizophrenia, disorganized F20.1 [facility] [address] [facility] [id number] [address] [place] [address] Jun, Schizophrenia, disorganized F20.1 [facility] [address] [facility] [id number] [address] [place] [phone] May, Schizophrenia, disorganized F20.1 [facility] [address] [facility] [id number] [address] [place] [phone] Feb, Schizophrenia, disorganized F20.1 [facility] [address] [id number] [address] [place] [address] December, Schizophrenia, disorganized F20.1 [facility] [address] [facility] [id number] [address] [place] [phone] Oct, Schizophrenia, disorganized F20.1 [facility] [address] [facility] [id number] [address] [place] [address] Sep, [facility] [address] [id number] [address] [place] [id number] 14 Jul, 2017 Schizophrenia, disorganized F20.1 [facility] [address] [id number] [address] [place] [address], [place] [address] 08 Jul, 2017 Schizophrenia, disorganized F20.1 [facility] [address] [id number] [address] [place] [address], [place] [address] 16 Jun, 2017 Schizophrenia, disorganized F20.1 [facility] [address] [id number] [address] [place] [address], [place] [address] 14 Apr, 2017 Schizophrenia, disorganized F20.1 [facility] [address] [id number] [address] [place] [address], [place] [address] 11 Feb, 2017 Schizophrenia, disorganized F20.1 [facility] [address] [id number] [address] [place] [address], [place] [address] 15 Jan, 2017 Schizophrenia, disorganized F20.1 [facility] [address] [id number] [address] [place] [id number] 14 Oct, 2016 Schizophrenia, disorganized F20.1 [facility] [address] [id number] [address] [place] [phone] 15 Jul, 2016 Schizophrenia, disorganized F20.1 [facility] [address] [id number] [address] [place] [id number] 09 Jun, 2016 [facility] [address] [id number] [address] [place] [phone] 15 Apr, 2016 Disorganized schizophrenia F 20.1 [facility] [address] [id number] [address] [place] [id number] 11 Mar, 2016 [facility] [address] [id number] [address] [place] [id number] 16 Jan, 2016 Schizophrenia, disorganized F20.1 [facility] [address] [id number] [address] [place] [id number] December, [facility] [address] [id number] [address] [place] [phone] Nov, [facility] [address] [id number] [address] [place] [phone] Oct, Disorganized schizophrenia, 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 [facility] [address] [id number] [address] [place] [address], [place] [address] Oct, [facility] [address] [id number] [address] [place] [address], [place] [address] Sep, [facility] [address] [id number] [address] [place] [phone] Sep, [facility] [address] [id number] [address] [place] [address], [place] [address] Sep, [facility] [address] [id number] [address] [place] [phone] Aug, [facility] [address] [id number] [address] [place] [phone] Aug, Disorganized schizophrenia F 20.1 [facility] [address] [id number] [address] [place] [phone] Aug, [facility] [address] [id number] [address] [place] [phone] May, [facility] [address] [id number] [address] [place] [phone] May, Schizophrenia, disorganized F20.1 [facility] [address] [id number] [address] [place] [id number] Feb, Disorganized schizophrenia, 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 [facility] [address] [id number] [address] [place] [phone] December, Disorganized schizophrenia, 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 [facility] [address] [id number] [address] [place] [phone] Nov, [facility] [address] [id number] [address] [place] [phone] Nov, [facility] [address] [id number] [address] [place] [address], [place] [address] Jun, [facility] [address] [id number] [address] [place] [address], [place] [address] Jun, [facility] [address] [id number] [address] [place] [address], [place] [address] Mar, [facility] [address] [id number] [address] [place] [address], [place] [address] Mar, [facility] [address] [id number] [address] [place] [address], [place] [address] December, [facility] [address] [id number] [address] [place] [address], [place] [address] December, [facility] [address] [id number] [address] [place] [address], [place] [address] Sep, [facility] [address] [id number] [address] [place] [address], [place] [address] Sep, [facility] [address] [id number] [address] [place] [address], [place] [address] Sep, [facility] [address] [id number] [address] [place] [address], [place] [address] Sep, [facility] [address] [id number] [address] [place] [address], [place] [address] Jun, [facility] [address] [id number] [address] [place] [address], [place] [address] Jun, [facility] [address] [id number] [address] [place] [address], [place] [address] May, [facility] [address] [id number] [address] [place] [address], [place] [address] May, [facility] [address] [id number] [address] [place] [address], [place] [address] Apr, [facility] [address] [id number] [address] [place] [address], [place] [address] Mar, [facility] [address] [id number] [address] [place] [address], [place] [address] 27 Jan, 2013 [facility] [address] [id number] [address] [place] [address], [place] [address] 18 Jan, 2013 [facility] [address] [id number] [address] [place] [address], [place] [address] 26 Nov, 2012 [facility] [address] [id number] [address] [place] [address], [place] [address] 25 Nov, 2012 [facility] [address] [id number] [address] [place] [address], [place] [address] 23 Nov, 2012 [facility] [address] [id number] [address] [place] [address], [place] [address] 17 Nov, 2012 [facility] [address] [id number] [address] [place] [address], [place] [address] 16 Nov, 2012 [facility] [address] [id number] [address] [place] [address], [place] [address] 12 Nov, 2012 [facility] [address] [id number] [address] [place] [address], [place] [address] 11 Nov, 2012 [facility] [address] [id number] [address] [place] [address], [place] [address] 08 Nov, 2012 [facility] [address] [id number] [address] [place] [address], [place] [address] 27 Oct, 2012 [facility] [address] [id number] [address] [place] [address], [place] [address] 07 Oct, 2012 [facility] [address] [id number] [address] [place] [address], [place] [address] 05 Oct, 2012 [facility] [address] [id number] [address] [place] [address], [place] [address] Jul, [facility] [address] [id number] [address] [place] [address], [place] [address] Jul, [facility] [address] [id number] [address] [place] [phone] Apr, [facility] [address] [id number] [address] [place] [phone] Jan, [facility] [address] [id number] [address] [place] [phone] Oct, [facility] [address] [id number] [address] [place] [address] Oct, [facility] [address] [id number] [address] [place] [address] Sep, [facility] [address] [id number] [address] [place] [address] Sep, [facility] [address] [id number] [address] [place] [phone] Aug, [facility] [address] [facility] [id number] [address] [place] [address] Jul, [facility] [address] [id number] [address] [place] [address] Jun, [facility] [address] [id number] [address] [place] [address] Jun, [facility] [address] [id number] [address] [place] [address] Jan, IMMUNIZATIONS No Known Immunizations SOCIAL HISTORY Never Assessed REASON FOR VISIT f/u Cain. Lizzy SILVA PLAN OF CARE Activity Details Follow Up 4 Months Reason: VITAL SIGNS Height 67.75 in 2018-07-15 Weight 189 lbs 2018-07-15 Heart Rate 76 bpm 2018-07-15 Respiratory Rate 20 2018-07-15 BMI 28.95 kg/m2 2018-07-15 Blood pressure systolic 128 mmHg 2018-07-15 Blood pressure diastolic 76 mmHg 2018-07-15 MEDICATIONS Medication Instructions Dosage Frequency Start Date End Date Duration S tatus Abilify 15 mg Orally Once a day 1 tablet 24h 30 days Active Benztropine Mesylate 0.5 MG Orally twice a day 1 tablet 12h 30 days Active Clonazepam 1 mg Orally twice a day as needed for anxiety 1 tablet Active RESULTS No Results PROCEDURES Procedure Date Ordered Result Body Site [facility] VISIT ESTABLISHED PATIENT Jul 15, 2018 INSTRUCTIONS MEDICATIONS ADMINISTERED No Known Medications MEDICAL (GENERAL) HISTORY Type Description Date Medical History Disorganized schizophrenia, chronic cond ition
--- OUTSIDE RECORDS SUMMARY | 2020-01-12 07:36 | XMS REPORT ---
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
--- OUTSIDE RECORDS SUMMARY | 2020-01-12 07:36 | XMS REPORT ---
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 [id number] ALLERGIES Substance Reaction Event Type Date Status Sulfa(sulfonamide Antibiotics) Unknown Non Drug Allergy Jul Active SOCIAL HISTORY No smoking Hx information available PLAN OF CARE Activity Details Follow Up 6 Months Reason: VITAL SIGNS Height 67.75 in 2016-08-02 Weight 201.0 lbs 2016-08-02 Heart Rate 76 bpm 2016-08-02 Respiratory Rate 18 2016-08-02 BMI 30.78 kg/m2 2016-08-02 Blood pressure systolic 109 mmHg 2016-08-02 Blood pressure diastolic 70 mmHg 2016-08-02 MEDICATIONS Medication Instructions Dosage Frequency Start Date End Date Duration S tatus Clonazepam 1 MG TAKE ONE TABLET BY MOUTH TWICE DAILY Active Trihexyphenidyl HCl 2 MG TAKE ONE TABLET BY MOUTH TWICE DAILY FOR SIDE EFFECTS Active Abilify 15 MG Orally Once a day 1 tablet 24h Active RESULTS Name Result Date Reference Range URINE DRUG SCREEN (IN HOUSE) 2016-08-02 Lot # [id number] Exp date 02/2018 Control + COCAINE negative AMPH negative MTD negative THC negative OPIATE negative BENZO negative PCP negative BAR negative OXY negative MAMP negative TCA BUP negative MDMA negative PROCEDURES Procedure Date Ordered Related Diagnosis Body Site [facility] VISIT ESTABLISHED PATIENT Aug 02, 2016 Office Visit, Est Pt., Level 3 Aug 02, 2016 DRUG SCREEN NON TLC DEVICES Aug 02, 2016 IMMUNIZATIONS No Known Immunizations
--- OUTSIDE RECORDS SUMMARY | 2020-01-12 07:36 | XMS REPORT ---
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
--- OUTSIDE RECORDS SUMMARY | 2020-01-12 07:36 | XMS REPORT ---
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 [id number] ALLERGIES No Information ENCOUNTERS Encounter Location Date Diagnosis [facility] [address] [facility] [id number] [address] [place] [address] Jun, [facility] [address] [facility] [id number] [address] [place] [address] May, Schizophrenia, disorganized F20.1 [facility] [address] [id number] [address] [place] [address] Feb, Schizophrenia, disorganized F20.1 [facility] [address] [facility] [id number] [address] [place] [address] December, Schizophrenia, disorganized F20.1 [facility] [address] [facility] [id number] [address] [place] [address] Oct, Schizophrenia, disorganized F20.1 [facility] [address] [id number] [address] [place] [address] Sep, [facility] [address] [facility] [id number] [address] [place] [address] Jul, Schizophrenia, disorganized F20.1 [facility] [address] [facility] [id number] [address] [place] [address] 08 Jul, 2017 Schizophrenia, disorganized F20.1 [facility] [address] [id number] [address] [place] [address] 16 Jun, 2017 Schizophrenia, disorganized F20.1 [facility] [address] [id number] [address] [place] [address], [place] [address] 14 Apr, 2017 Schizophrenia, disorganized F20.1 [facility] [address] [id number] [address] [place] [address], [place] [address] 11 Feb, 2017 Schizophrenia, disorganized F20.1 [facility] [address] [id number] [address] [place] [address], [place] [address] 15 Jan, 2017 Schizophrenia, disorganized F20.1 [facility] [address] [id number] [address] [place] [address], [place] [address] 14 Oct, 2016 Schizophrenia, disorganized F20.1 [facility] [address] [id number] [address] [place] [address], [place] [address] 15 Jul, 2016 Schizophrenia, disorganized F20.1 [facility] [address] [id number] [address] [place] [id number] 09 Jun, 2016 [facility] [address] [id number] [address] [place] [address] 15 Apr, 2016 Disorganized schizophrenia F 20.1 [facility] [address] [id number] [address] [place] [address] Mar, [facility] [address] [id number] [address] [place] [address] 16 Jan, 2016 Schizophrenia, disorganized F20.1 [facility] [address] [id number] [address] [place] [address] December, [facility] [address] [id number] [address] [place] [address], [place] [address] Nov, [facility] [address] [id number] [address] [place] [address] 29 Oct, 2015 Disorganized schizophrenia, 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 [facility] [address] [id number] [address] [place] [address] 15 Oct, 2015 [facility] [address] [id number] [address] [place] [address] Sep, [facility] [address] [id number] [address] [place] [address] Sep, [facility] [address] [id number] [address] [place] [address] Sep, [facility] [address] [id number] [address] [place] [address] Aug, [facility] [address] [id number] [address] [place] [address] Aug, Disorganized schizophrenia F 20.1 [facility] [address] [id number] [address] [place] [address] Aug, [facility] [address] [id number] [address] [place] [address] May, [facility] [address] [id number] [address] [place] [address] May, Schizophrenia, disorganized F20.1 [facility] [address] [id number] [address] [place] [address] Feb, Disorganized schizophrenia, 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 [facility] [address] [id number] [address] [place] [address] December, Disorganized schizophrenia, 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 [facility] [address] [id number] [address] [place] [address] Nov, [facility] [address] [id number] [address] [place] [address] Nov, [facility] [address] [id number] [address] [place] [address] Jun, [facility] [address] [id number] [address] [place] [address] Jun, [facility] [address] [id number] [address] [place] [address] Mar, [facility] [address] [id number] [address] [place] [address], [place] [address] Mar, [facility] [address] [id number] [address] [place] [address], [place] [address] December, [facility] [address] [id number] [address] [place] [address], [place] [address] December, [facility] [address] [id number] [address] [place] [address], [place] [address] Sep, [facility] [address] [id number] [address] [place] [address], [place] [address] Sep, [facility] [address] [id number] [address] [place] [address], [place] [address] Sep, [facility] [address] [id number] [address] [place] [address], [place] [address] Sep, [facility] [address] [id number] [address] [place] [address], [place] [address] Jun, [facility] [address] [id number] [address] [place] [address], [place] [address] Jun, [facility] [address] [id number] [address] [place] [address], [place] [address] May, [facility] [address] [id number] [address] [place] [address], [place] [address] May, [facility] [address] [id number] [address] [place] [address], [place] [address] Apr, [facility] [address] [id number] [address] [place] [address], [place] [address] Mar, [facility] [address] [id number] [address] [place] [address], [place] [address] Jan, [facility] [address] [id number] [address] [place] [address], [place] [address] Jan, [facility] [address] [id number] [facility] [place] [address] 26 Nov, 2012 [facility] [address] [id number] [address] [place] [address], [place] [address] 25 Nov, 2012 [facility] [address] [id number] [address] [place] [address], [place] [address] 23 Nov, 2012 [facility] [address] [id number] [address] [place] [address], [place] [address] 17 Nov, 2012 [facility] [address] [id number] [address] [place] [address], [place] [address] 16 Nov, 2012 [facility] [address] [id number] [address] [place] [address], [place] [address] 12 Nov, 2012 [facility] [address] [id number] [address] [place] [address], [place] [address] 11 Nov, 2012 [facility] [address] [id number] [address] [place] [address], [place] [address] 08 Nov, 2012 [facility] [address] [id number] [address] [place] [address], [place] [address] 27 Oct, 2012 [facility] [address] [id number] [address] [place] [address], [place] [address] 07 Oct, 2012 [facility] [address] [id number] [address] [place] [address], [place] [address] 05 Oct, 2012 [facility] [address] [id number] [address] [place] [address], [place] [address] 27 Jul, 2012 [facility] [address] [id number] [address] [place] [address], [place] [address] 27 Jul, 2012 [facility] [address] [id number] [address] [place] [address], [place] [address] 27 Apr, 2012 [facility] [address] [id number] [address] [place] [address], [place] [address] 27 Jan, 2012 [facility] [address] [id number] [address] [place] [address], [place] [address] Oct, [facility] [address] [id number] [address] [place] [address] Oct, [facility] [address] [id number] [address] [place] [address] Sep, [facility] [address] [facility] [id number] [address] [place] [address] Sep, [facility] [address] [facility] [id number] [address] [place] [address] Aug, [facility] [address] [facility] [id number] [address] [place] [address] Jul, [facility] [address] [facility] [id number] [address] [place] [address] Jun, [facility] [address] [facility] [id number] [address] [place] [address] Jun, [facility] [address] [facility] [id number] [address] [place] [address] Jan, IMMUNIZATIONS No Known Immunizations SOCIAL HISTORY Never Assessed REASON FOR VISIT klonopin refill PLAN OF CARE VITAL SIGNS MEDICATIONS Medication [...]
--- OUTSIDE RECORDS SUMMARY | 2020-01-12 07:36 | XMS REPORT ---
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 [id number] ALLERGIES No Information ENCOUNTERS Encounter Location Date Diagnosis [facility] [address] [place] [place] [id number] [address] [place] [phone] May, [facility] [address] [facility] [id number] [address] [place] [phone] Feb, Schizophrenia, disorganized F20.1 [facility] [address] [facility] [id number] [address] [place] [id number] December, Schizophrenia, disorganized F20.1 [facility] [address] [facility] [id number] [address] [place] [id number] Oct, Schizophrenia, disorganized F20.1 [facility] [address] [facility] [id number] [address] [place] [phone] Sep, [facility] [address] [facility] [id number] [address] [place] [address] Jul, Schizophrenia, disorganized F20.1 [facility] [address] [facility] [id number] [address] [place] [id number] 08 Jul, 2017 Schizophrenia, disorganized F20.1 [facility] [address] [facility] [id number] [address] [place] [id number] Jun, Schizophrenia, disorganized F20.1 [facility] [address] [id number] [address] [place] [id number] 14 Apr, 2017 Schizophrenia, disorganized F20.1 [facility] [address] [id number] [address] [place] [id number] 11 Feb, 2017 Schizophrenia, disorganized F20.1 [facility] [address] [id number] [address] [place] [address], [place] [address] 15 Jan, 2017 Schizophrenia, disorganized F20.1 [facility] [address] [id number] [address] [place] [address], [place] [address] 14 Oct, 2016 Schizophrenia, disorganized F20.1 [facility] [address] [id number] [address] [place] [address], [place] [address] 15 Jul, 2016 Schizophrenia, disorganized F20.1 [facility] [address] [id number] [address] [place] [address], [place] [address] 09 Jun, 2016 [facility] [address] [id number] [address] [place] [id number] 15 Apr, 2016 Disorganized schizophrenia F 20.1 [facility] [address] [id number] [address] [place] [id number] Mar, [facility] [address] [id number] [address] [place] [id number] 16 Jan, 2016 Schizophrenia, disorganized F20.1 [facility] [address] [id number] [address] [place] [id number] December, [facility] [address] [id number] [address] [place] [phone] Nov, [facility] [address] [id number] [address] [place] [id number] 29 Oct, 2015 Disorganized schizophrenia, 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 [facility] [address] [id number] [address] [place] [id number] 15 Oct, 2015 [facility] [address] [id number] [address] [place] [id number] Sep, [facility] [address] [id number] [address] [place] [id number] Sep, [facility] [address] [id number] [address] [place] [id number] Sep, [facility] [address] [id number] [address] [place] [phone] Aug, [facility] [address] [id number] [address] [place] [id number] Aug, Disorganized schizophrenia F 20.1 [facility] [address] [id number] [address] [place] [phone] Aug, [facility] [address] [id number] [address] [place] [id number] May, [facility] [address] [id number] [address] [place] [id number] May, Schizophrenia, disorganized F20.1 [facility] [address] [id number] [address] [place] [id number] Feb, Disorganized schizophrenia, 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 [facility] [address] [id number] [address] [place] [id number] December, Disorganized schizophrenia, 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 [facility] [address] [id number] [address] [place] [phone] Nov, [facility] [address] [id number] [address] [place] [id number] Nov, [facility] [address] [id number] [address] [place] [id number] Jun, [facility] [address] [id number] [address] [place] [id number] Jun, [facility] [address] [id number] [address] [place] [id number] Mar, [facility] [address] [id number] [address] [place] [id number] Mar, [facility] [address] [id number] [address] [place] [address], [place] [address] December, [facility] [address] [id number] [address] [place] [address], [place] [address] December, [facility] [address] [id number] [address] [place] [address], [place] [address] Sep, [facility] [address] [id number] [address] [place] [address], [place] [address] Sep, [facility] [address] [id number] [address] [place] [address], [place] [address] Sep, [facility] [address] [id number] [address] [place] [address], [place] [address] Sep, [facility] [address] [id number] [address] [place] [address], [place] [address] Jun, [facility] [address] [id number] [address] [place] [address], [place] [address] Jun, [facility] [address] [id number] [address] [place] [address], [place] [address] May, [facility] [address] [id number] [address] [place] [address], [place] [address] May, [facility] [address] [id number] [address] [place] [address], [place] [address] Apr, [facility] [address] [id number] [address] [place] [address], [place] [address] Mar, [facility] [address] [id number] [address] [place] [address], [place] [address] Jan, [facility] [address] [id number] [address] [place] [address], [place] [address] Jan, [facility] [address] [id number] [address] [place] [address], [place] [address] Nov, [facility] [address] [id number] [address] [place] [address], [place] [address] 25 Nov, 2012 [facility] [address] [id number] [address] [place] [address], [place] [address] 23 Nov, 2012 [facility] [address] [id number] [address] [place] [address], [place] [address] 17 Nov, 2012 [facility] [address] [id number] [address] [place] [address], [place] [address] 16 Nov, 2012 [facility] [address] [id number] [address] [place] [address], [place] [address] 12 Nov, 2012 [facility] [address] [id number] [address] [place] [address], [place] [address] 11 Nov, 2012 [facility] [address] [id number] [address] [place] [address], [place] [address] 08 Nov, 2012 [facility] [address] [id number] [address] [place] [address], [place] [address] 27 Oct, 2012 [facility] [address] [id number] [address] [place] [address], [place] [address] 07 Oct, 2012 [facility] [address] [id number] [address] [place] [address], [place] [address] 05 Oct, 2012 [facility] [address] [id number] [address] [place] [address], [place] [address] 27 Jul, 2012 [facility] [address] [id number] [address] [place] [address], [place] [address] 27 Jul, 2012 [facility] [address] [id number] [address] [place] [address], [place] [address] 27 Apr, 2012 [facility] [address] [id number] [address] [place] [address], [place] [address] 27 Jan, 2012 [facility] [address] [id number] [address] [place] [address], [place] [address] 27 Oct, 2011 [facility] [address] [id number] [address] [place] [address], [place] [address] 15 Oct, 2011 [facility] [address] [id number] [address] [place] [id number] Sep, [facility] [address] [id number] [address] [place] [phone] Sep, [facility] [address] [id number] [address] [place] [phone] Aug, [facility] [address] [id number] [address] [place] [phone] Jul, [facility] [address] [id number] [address] [place] [phone] Jun, [facility] [address] [id number] [address] [place] [phone] Jun, [facility] [address] [facility] [id number] [address] [place] [phone] Jan, IMMUNIZATIONS No Known Immunizations SOCIAL HISTORY Never Assessed REASON FOR VISIT f/u PLAN OF CARE Activity Details Follow Up 4 Months Reason: VITAL SIGNS Height 67.75 in 2017-10-31 Weight 188.5 lbs 2017-10-31 Heart Rate 76 bpm 2017-10-31 Respiratory Rate 20 2017-10-31 BMI 28.87 kg/m2 2017-10-31 Blood pressure systolic 138 mmHg 2017-10-31 Blood pressure diastolic 72 mmHg 2017-10-31 MEDICATIONS Medication Instructions Dosage Frequency Start Date End Date Duration S tatus Benztropine Mesylate 0.5 MG Orally twice a day 1 tablet 12h 30 days Active Abilify 15 MG Orally Once a day 1 tablet 24h 30 days Active Clonazepam 1 MG Orally twice a day as needed for anxiety 1 tablet 30 days Active RESULTS No Results PROCEDURES Procedure Date Ordered Result Body Site [facility] VISIT ESTABLISHED PATIENT October 31, 2017 INSTRUCTIONS MEDICATIONS ADMINISTERED No Known Medications MEDICAL (GENERAL) HISTORY Type Description Date Medical History Disorganized schizophrenia, chronic cond ition
--- OUTSIDE RECORDS SUMMARY | 2020-01-12 07:36 | XMS REPORT ---
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 Ac tive [id number] ALLERGIES No Information ENCOUNTERS Encounter Location Date Diagnosis [facility] [address] [facility] [id number] [address] [place] [address] Jan, [facility] [address] [id number] [address] [place] [id number] Jan, [facility] [id number] [place] [id number] Nov, Caries K02.9 ; Dental examin ation Z01.20 and Oral health maintenance status requiring routine preventive dental care K08.9 [facility] [address] [id number] [address] [place] [address] Nov, Schizophrenia, disorganized F20.1 [facility] [address] [facility] [id number] [address] [place] [address] Oct, Schizophrenia, disorganized F20.1 [facility] [address] [place] [address] 14 Sep, 2018 Follow up Z09 [facility] [address] [facility] [id number] [address] [place] [address] 08 Sep, 2018 [facility] [address] [id number] [address] [place] [address] 02 Sep, 2018 Fever in other diseases R50. 81 and Cough R05 [facility] [address] [facility] [id number] [address] [place] [address] Aug, Viral upper respiratory trac t infection J06.9 [facility] [address] [id number] [address] [place] [address], [place] [address] 07 Aug, 2018 Fever R50.9 and Wheezing R06 .2 [facility] [address] [id number] [address] [place] [address], [place] [address] 27 Jun, 2018 Schizophrenia, disorganized F20.1 [facility] [address] [id number] [address] [place] [address], [place] [address] Jun, Schizophrenia, disorganized F20.1 [facility] [address] [id number] [address] [place] [address], [place] [address] 08 May, 2018 Schizophrenia, disorganized F20.1 [facility] [address] [id number] [address] [place] [address], [place] [address] Feb, Schizophrenia, disorganized F20.1 [facility] [address] [id number] [address] [place] [address], [place] [address] December, Schizophrenia, disorganized F20.1 [facility] [address] [id number] [address] [place] [address], [place] [address] Oct, Schizophrenia, disorganized F20.1 [facility] [address] [id number] [address] [place] [address], [place] [address] 07 Sep, 2017 [facility] [address] [id number] [address] [place] [address], [place] [address] 14 Jul, 2017 Schizophrenia, disorganized F20.1 [facility] [address] [id number] [address] [place] [address] 08 Jul, 2017 Schizophrenia, disorganized F20.1 [facility] [address] [id number] [address] [place] [address], [place] [address] 16 Jun, 2017 Schizophrenia, disorganized F20.1 [facility] [address] [facility] [id number] [address] [place] [address], [place] [address] 14 Apr, 2017 Schizophrenia, disorganized F20.1 [facility] [address] [facility] [id number] [address] [place] [address] Feb, Schizophrenia, disorganized F20.1 [facility] [address] [id number] [address] [place] [address], [place] [address] 15 Jan, 2017 Schizophrenia, disorganized F20.1 [facility] [address] [id number] [address] [place] [address], [place] [address] 14 Oct, 2016 Schizophrenia, disorganized F20.1 [facility] [address] [id number] [address] [place] [address], [place] [address] 15 Jul, 2016 Schizophrenia, disorganized F20.1 [facility] [address] [id number] [address] [place] [address], [place] [address] Jun, [facility] [address] [id number] [address] [place] [address], [place] [address] 15 Apr, 2016 Disorganized schizophrenia F 20.1 [facility] [address] [id number] [address] [place] [address], [place] [address] Mar, [facility] [address] [id number] [address] [place] [address] Jan, Schizophrenia, disorganized F20.1 [facility] [address] [id number] [address] [place] [address], [place] [address] December, [facility] [address] [id number] [address] [place] [address], [place] [address] Nov, [facility] [address] [id number] [address] [place] [address], [place] [address] Oct, Disorganized schizophrenia, 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 [facility] [address] [id number] [address] [place] [address], [place] [address] Oct, [facility] [address] [id number] [address] [place] [address], [place] [address] Sep, [facility] [address] [id number] [address] [place] [address], [place] [address] Sep, [facility] [address] [id number] [address] [place] [address] Sep, [facility] [address] [id number] [address] [place] [address] Aug, [facility] [address] [id number] [address] [place] [address] Aug, Disorganized schizophrenia F 20.1 [facility] [address] [id number] [address] [place] [address] Aug, [facility] [address] [id number] [address] [place] [address] May, [facility] [address] [id number] [address] [place] [address] May, Schizophrenia, disorganized F20.1 [facility] [address] [id number] [address] [place] [address] Feb, Disorganized schizophrenia, 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 [facility] [address] [id number] [address] [place] [address] December, Disorganized schizophrenia, 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 [facility] [address] [id number] [address] [place] [address] Nov, [facility] [address] [id number] [address] [place] [address] Nov, [facility] [address] [id number] [address] [place] [address] Jun, [facility] [address] [id number] [address] [place] [address] Jun, [facility] [address] [id number] [address] [place] [address] Mar, [facility] [address] [id number] [address] [place] [address] Mar, [facility] [address] [id number] [address] [place] [address] December, [facility] [address] [id number] [address] [place] [address] December, [facility] [address] [id number] [address] [place] [address], [place] [address] Sep, [facility] [address] [id number] [address] [place] [address], [place] [address] Sep, [facility] [address] [id number] [address] [place] [address], [place] [address] Sep, [facility] [address] [id number] [address] [place] [address], [place] [address] Sep, [facility] [address] [id number] [address] [place] [address], [place] [address] Jun, [facility] [address] [id number] [address] [place] [address], [place] [address] Jun, [facility] [address] [id number] [address] [place] [address], [place] [address] May, [facility] [address] [id number] [address] [place] [address], [place] [address] May, [facility] [address] [id number] [address] [place] [address], [place] [address] Apr, [facility] [address] [id number] [address] [place] [address], [place] [address] Mar, [facility] [address] [id number] [address] [place] [address], [place] [address] Jan, [facility] [address] [id number] [address] [place] [address], [place] [address] Jan, [facility] [address] [id number] [address] [place] [address], [place] [address] Nov, [facility] [address] [id number] [address] [place] [address], [place] [address] Nov, [facility] [address] [id number] [address] [place] [address], [place] [address] Nov, [facility] [address] [id number] [address] [place] [address], [place] [address] 17 Nov, 2012 [facility] [address] [id number] [address] [place] [address], [place] [address] 16 Nov, 2012 [facility] [address] [id number] [address] [place] [address], [place] [address] 12 Nov, 2012 [facility] [address] [id number] [address] [place] [address], [place] [address] 11 Nov, 2012 [facility] [address] [id number] [address] [place] [address], [place] [address] 08 Nov, 2012 [facility] [address] [id number] [address] [place] [address], [place] [address] 27 Oct, 2012 [facility] [address] [id number] [address] [place] [address], [place] [address] 07 Oct, 2012 [facility] [address] [id number] [address] [place] [address], [place] [address] 05 Oct, 2012 [facility] [address] [id number] [address] [place] [address], [place] [address] 27 Jul, 2012 [facility] [address] [id number] [address] [place] [address], [place] [address] 27 Jul, 2012 [facility] [address] [id number] [address] [place] [address], [place] [address] 27 Apr, 2012 [facility] [address] [id number] [address] [place] [address], [place] [address] 27 Jan, 2012 [facility] [address] [id number] [address] [place] [address], [place] [address] 27 Oct, 2011 [facility] [address] [id number] [address] [place] [address], [place] [address] 15 Oct, 2011 [facility] [address] [id number] [address] [place] [address], [place] [address] 27 Sep, 2011 [facility] [address] [id number] [address] [place] [address], [place] [address] Sep, [facility] [address] [facility] [id number] [address] [place] [address] Aug, [facility] [address] [facility] [id number] [address] [place] [address] Jul, [facility] [address] [facility] [id number] [address] [place] [address] Jun, [facility] [address] [facility] [id number] [address] [place] [address] Jun, [facility] [address] [facility] [id number] [address] [place] [address] Jan, IMMUNIZATIONS No Known Immunizations SOCIAL HISTORY Never Assessed REASON FOR VISIT EMR-[facility] PLAN OF CARE VITAL SIGNS MEDICATIONS Unknown Medications RESULTS No Results PROCEDURES No Known procedures INSTRUCTIONS MEDICATIONS ADMINISTERED No Known Medications MEDICAL (GENERAL) HISTORY Type Description Date Medical History Disorganized schizophrenia, chronic cond ition Surgical History No Surgical history information Hospitalization History pneumonia 09/2018
--- OUTSIDE RECORDS SUMMARY | 2020-01-12 07:36 | XMS REPORT ---
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 81 and Cough R05 [facility] [address] [id number] [address] [place] [id number] Aug, Viral upper respiratory trac t infection J06.9 [facility] [address] [id number] [address] [place] [phone] Aug, Fever R50.9 and Wheezing R06 .2 [facility] [address] [id number] [address] [place] [phone] Jun, Schizophrenia, disorganized F20.1 [facility] [id number] [place] [phone] Jun, Schizophrenia, disorganized F20.1 [facility] [address] [id number] 08 May, 2018 Schizophrenia, disorganized F20.1 [facility] [address] [id number] [address] [place] [address], [place] [address] 17 Feb, 2018 Schizophrenia, disorganized F20.1 [facility] [address] [id number] [address] [place] [address], [place] [address] December, Schizophrenia, disorganized F20.1 [facility] [address] [id number] [address] [place] [address], [place] [address] 15 Oct, 2017 Schizophrenia, disorganized F20.1 [facility] [address] [id number] [address] [place] [address], [place] [address] 07 Sep, 2017 [facility] [address] [id number] [address] [place] [address], [place] [address] 14 Jul, 2017 Schizophrenia, disorganized F20.1 [facility] [address] [id number] [address] [place] [id number] 08 Jul, 2017 Schizophrenia, disorganized F20.1 [facility] [address] [id number] [address] [place] [id number] 16 Jun, 2017 Schizophrenia, disorganized F20.1 [facility] [address] [id number] [address] [place] [id number] 14 Apr, 2017 Schizophrenia, disorganized F20.1 [facility] [address] [id number] [address] [place] [id number] Feb, Schizophrenia, disorganized F20.1 [facility] [address] [id number] [address] [place] [id number] 15 Jan, 2017 Schizophrenia, disorganized F20.1 [facility] [address] [id number] [address] [place] [id number] 14 Oct, 2016 Schizophrenia, disorganized F20.1 [facility] [address] [id number] [address] [place] [id number] 15 Jul, 2016 Schizophrenia, disorganized F20.1 [facility] [address] [id number] [address] [place] [phone] Jun, [facility] [address] [id number] [address] [place] [phone] Apr, Disorganized schizophrenia F 20.1 [facility] [address] [id number] [address] [place] [id number] Mar, [facility] [address] [id number] [address] [place] [id number] Jan, Schizophrenia, disorganized F20.1 [facility] [address] [id number] [address] [place] [id number] December, [facility] [address] [id number] [address] [place] [id number] Nov, [facility] [address] [id number] [address] [place] [id number] Oct, Disorganized schizophrenia, 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 [facility] [address] [id number] [address] [place] [phone] Oct, [facility] [address] [id number] [address] [place] [phone] Sep, [facility] [address] [id number] [address] [place] [phone] Sep, [facility] [address] [id number] [address] [place] [phone] Sep, [facility] [address] [id number] [address] [place] [phone] Aug, [facility] [address] [id number] [address] [place] [phone] Aug, Disorganized schizophrenia F 20.1 [facility] [address] [id number] [address] [place] [phone] Aug, [facility] [address] [id number] [address] [place] [phone] May, [facility] [address] [id number] [address] [place] [phone] May, Schizophrenia, disorganized F20.1 [facility] [address] [id number] [address] [place] [address], [place] [address] Feb, Disorganized schizophrenia, 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 [facility] [address] [id number] [address] [place] [address], [place] [address] December, Disorganized schizophrenia, 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 [facility] [address] [id number] [address] [place] [address], [place] [address] Nov, [facility] [address] [id number] [address] [place] [address], [place] [address] Nov, [facility] [address] [id number] [address] [place] [phone] Jun, [facility] [address] [id number] [address] [place] [phone] Jun, [facility] [address] [id number] [address] [place] [phone] Mar, [facility] [address] [id number] [address] [place] [address], [place] [address] Mar, [facility] [address] [id number] [address] [place] [phone] December, [facility] [address] [id number] [address] [place] [address], [place] [address] December, [facility] [address] [id number] [address] [place] [id number] Sep, [facility] [address] [id number] [address] [place] [phone] Sep, [facility] [address] [id number] [address] [place] [phone] Sep, [facility] [address] [id number] [address] [place] [phone] Sep, [facility] [address] [id number] [address] [place] [address], [place] [address] Jun, [facility] [address] [id number] [address] [place] [address], [place] [address] Jun, [facility] [address] [id number] [address] [place] [address], [place] [address] May, [facility] [address] [id number] [address] [place] [address], [place] [address] May, [facility] [address] [id number] [address] [place] [address], [place] [address] Apr, [facility] [address] [id number] [address] [place] [address], [place] [address] Mar, [facility] [address] [id number] [address] [place] [address], [place] [address] Jan, [facility] [address] [id number] [address] [place] [address], [place] [address] Jan, [facility] [address] [id number] [address] [place] [address], [place] [address] Nov, [facility] [address] [id number] [address] [place] [address], [place] [address] Nov, [facility] [address] [id number] [address] [place] [address], [place] [address] 23 Nov, 2012 [facility] [address] [id number] [address] [place] [address], [place] [address] 17 Nov, 2012 [facility] [address] [id number] [address] [place] [address], [place] [address] 16 Nov, 2012 [facility] [address] [id number] [address] [place] [address], [place] [address] 12 Nov, 2012 [facility] [address] [id number] [address] [place] [address], [place] [address] 11 Nov, 2012 [facility] [address] [id number] [address] [place] [address], [place] [address] 08 Nov, 2012 [facility] [address] [id number] [address] [place] [address], [place] [address] 27 Oct, 2012 [facility] [address] [id number] [address] [place] [address], [place] [address] 07 Oct, 2012 [facility] [address] [id number] [address] [place] [address], [place] [address] 05 Oct, 2012 [facility] [address] [id number] [address] [place] [address], [place] [address] 27 Jul, 2012 [facility] [address] [id number] [address] [place] [address], [place] [address] Jul, [facility] [address] [id number] [address] [place] [address], [place] [address] 27 Apr, 2012 [facility] [address] [id number] [address] [place] [address], [place] [address] Jan, [facility] [address] [id number] [address] [place] [address], [place] [address] Oct, [facility] [address] [id number] [address] [place] [address], [place] [address] Oct, [facility] [address] [id number] [address] [place] [address], [place] [address] Sep, [facility] [address] [id number] [address] [place] [address], [place] [address] Sep, [facility] [address] [id number] [address] [place] [address], [place] [address] Aug, [facility] [address] [id number] [address] [place] [address], [place] [address] 16 Jul, 2011 [facility] [address] [id number] [address] [place] [address], [place] [address] 15 Jun, 2011 [facility] [address] [id number] [address] [place] [address], [place] [address] 15 Jun, 2011 [facility] [address] [id number] [address] [place] [address] 17 Jan, 2011 IMMUNIZATIONS No Known Immunizations SOCIAL HISTORY Never Assessed REASON FOR VISIT EMR-[facility] PLAN OF CARE VITAL SIGNS MEDICATIONS Unknown Medications RESULTS No Results PROCEDURES No Known procedures INSTRUCTIONS MEDICATIONS ADMINISTERED No Known Medications MEDICAL (GENERAL) HISTORY Type Description Date Medical History Disorganized schizophrenia, chronic cond ition Surgical History No know Surgical history Hospitalization History pneumonia 09/2018
--- OUTSIDE RECORDS SUMMARY | 2020-01-12 07:36 | XMS REPORT ---
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 [id number] [address] [place] [address] Feb, Schizophrenia, disorganized F20.1 [facility] [place] [address] [facility] [id number] [address] [place] [id number] December, Schizophrenia, disorganized F20.1 [facility] [place] [address] [facility] [id number] [address] [place] [id number] Oct, Schizophrenia, disorganized F20.1 [facility] [place] [address] [facility] [id number] [address] [place] [id number] Sep, [facility] [place] [address] [id number] [address] [place] [id number] Jul, Schizophrenia, disorganized F20.1 [facility] [place] [address] [facility] [id number] [address] [place] [id number] 08 Jul, 2017 Schizophrenia, disorganized F20.1 [facility] [place] [address] [facility] [id number] [address] [place] [id number] Jun, Schizophrenia, disorganized F20.1 [facility] [place] [address] [id number] [address] [place] [id number] 14 Apr, 2017 Schizophrenia, disorganized F20.1 [facility] [place] [address] [id number] [address] [place] [id number] 11 Feb, 2017 Schizophrenia, disorganized F20.1 [facility] [address] [id number] [address] [place] [address], [place] [address] 15 Jan, 2017 Schizophrenia, disorganized F20.1 [facility] [place] [address] [id number] [address] [place] [address], [place] [address] 14 Oct, 2016 Schizophrenia, disorganized F20.1 [facility] [place] [address] [id number] [address] [place] [address], [place] [address] 15 Jul, 2016 Schizophrenia, disorganized F20.1 [facility] [place] [address] [id number] [address] [place] [address], [place] [address] 09 Jun, 2016 [facility] [place] [address] [id number] [address] [place] [id number] 15 Apr, 2016 Disorganized schizophrenia F 20.1 [facility] [place] [address] [id number] [address] [place] [phone] Mar, [facility] [place] [address] [id number] [address] [place] [id number] 16 Jan, 2016 Schizophrenia, disorganized F20.1 [facility] [place] [address] [id number] [address] [place] [id number] December, [facility] [place] [address] [id number] [address] [place] [id number] Nov, [facility] [place] [address] [id number] [address] [place] [id number] 29 Oct, 2015 Disorganized schizophrenia, 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 [facility] [place] [address] [id number] [address] [place] [id number] 15 Oct, 2015 [facility] [place] [address] [id number] [address] [place] [id number] Sep, [facility] [place] [address] [id number] [address] [place] [id number] Sep, [facility] [place] [address] [id number] [address] [place] [phone] Sep, [facility] [address] [id number] [address] [place] [id number] Aug, [facility] [place] [address] [id number] [address] [place] [id number] Aug, Disorganized schizophrenia F 20.1 [facility] [place] [address] [id number] [address] [place] [id number] Aug, [facility] [place] [address] [id number] [address] [place] [phone] May, [facility] [place] [address] [id number] [address] [place] [id number] May, Schizophrenia, disorganized F20.1 [facility] [place] [address] [id number] [address] [place] [id number] Feb, Disorganized schizophrenia, 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 [facility] [place] [address] [id number] [address] [place] [id number] December, Disorganized schizophrenia, 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 [facility] [place] [address] [id number] [address] [place] [id number] Nov, [facility] [place] [address] [id number] [address] [place] [phone] Nov, [facility] [place] [address] [id number] [address] [place] [phone] Jun, [facility] [place] [address] [id number] [address] [place] [id number] Jun, [facility] [place] [address] [id number] [address] [place] [id number] Mar, [facility] [place] [address] [id number] [address] [place] [phone] Mar, [facility] [address] [id number] [address] [place] [address], [place] [address] December, [facility] [address] [id number] [address] [place] [address], [place] [address] December, [facility] [address] [id number] [address] [place] [address], [place] [address] Sep, [facility] [address] [id number] [address] [place] [address], [place] [address] Sep, [facility] [address] [id number] [address] [place] [address], [place] [address] Sep, [facility] [address] [id number] [address] [place] [address], [place] [address] Sep, [facility] [address] [id number] [address] [place] [address], [place] [address] Jun, [facility] [address] [id number] [address] [place] [address], [place] [address] Jun, [facility] [address] [id number] [address] [place] [address], [place] [address] May, [facility] [address] [id number] [address] [place] [address], [place] [address] May, [facility] [address] [id number] [address] [place] [address], [place] [address] Apr, [facility] [address] [id number] [address] [place] [address], [place] [address] Mar, [facility] [address] [id number] [address] [place] [address], [place] [address] Jan, [facility] [address] [id number] [address] [place] [address], [place] [address] Jan, [facility] [address] [id number] [address] [place] [address], [place] [address] Nov, [facility] [address] [id number] [address] [place] [address], [place] [address] 25 Nov, 2012 [facility] [address] [id number] [address] [place] [address], [place] [address] 23 Nov, 2012 [facility] [address] [id number] [address] [place] [address], [place] [address] 17 Nov, 2012 [facility] [address] [id number] [address] [place] [address], [place] [address] 16 Nov, 2012 [facility] [address] [id number] [address] [place] [address], [place] [address] 12 Nov, 2012 [facility] [address] [id number] [address] [place] [address], [place] [address] 11 Nov, 2012 [facility] [address] [id number] [address] [place] [address], [place] [address] 08 Nov, 2012 [facility] [address] [id number] [address] [place] [address], [place] [address] 27 Oct, 2012 [facility] [address] [id number] [address] [place] [address], [place] [address] 07 Oct, 2012 [facility] [address] [id number] [address] [place] [address], [place] [address] 05 Oct, 2012 [facility] [address] [id number] [address] [place] [address], [place] [address] 27 Jul, 2012 [facility] [address] [id number] [address] [place] [address], [place] [address] 27 Jul, 2012 [facility] [address] [id number] [address] [place] [address], [place] [address] 27 Apr, 2012 [facility] [address] [id number] [address] [place] [address], [place] [address] 27 Jan, 2012 [facility] [address] [id number] [address] [place] [address], [place] [address] 27 Oct, 2011 [facility] [address] [id number] [address] [place] [address], [place] [address] 15 Oct, 2011 [facility] [place] [address] [id number] [address] [place] [phone] Sep, [facility] [place] [address] [id number] [address] [place] [id number] Sep, [facility] [place] [address] [facility] [id number] [address] [place] [phone] Aug, [facility] [place] [address] [facility] [id number] [address] [place] [id number] Jul, [facility] [place] [address] [facility] [id number] [address] [place] [phone] Jun, [facility] [place] [address] [facility] [id number] [address] [place] [id number] Jun, [facility] [place] [address] [facility] [id number] [address] [place] [address] Jan, IMMUNIZATIONS No Known Immunizations SOCIAL HISTORY Never Assessed REASON FOR VISIT aggie refill PLAN OF CARE VITAL SIGNS MEDICATIONS [...]
--- OUTSIDE RECORDS SUMMARY | 2020-01-12 07:36 | XMS REPORT ---
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 Active [id number] ALLERGIES No Information ENCOUNTERS Encounter Location Date Diagnosis [facility] [address] [facility] [id number] [address] [place] [id number] Feb, [facility] [address] [facility] [id number] [address] [place] [address] December, Schizophrenia, disorganized F20.1 [facility] [address] [id number] [address] [place] [phone] Oct, Schizophrenia, disorganized F20.1 [facility] [address] [facility] [id number] [address] [place] [id number] 07 Sep, 2017 [facility] [address] [id number] [address] [place] [phone] 14 Jul, 2017 Schizophrenia, disorganized F20.1 [facility] [address] [id number] [address] [place] [id number] 08 Jul, 2017 Schizophrenia, disorganized F20.1 [facility] [address] [facility] [id number] [address] [place] [id number] 16 Jun, 2017 Schizophrenia, disorganized F20.1 [facility] [address] [id number] [address] [place] [id number] 14 Apr, 2017 Schizophrenia, disorganized F20.1 [facility] [address] [id number] [address] [place] [id number] Feb, Schizophrenia, disorganized F20.1 [facility] [address] [id number] [address] [place] [id number] 15 Jan, 2017 Schizophrenia, disorganized F20.1 [facility] [address] [id number] [address] [place] [id number] 14 Oct, 2016 Schizophrenia, disorganized F20.1 [facility] [address] [id number] [address] [place] [id number] 15 Jul, 2016 Schizophrenia, disorganized F20.1 [facility] [address] [id number] [address] [place] [id number] 09 Jun, 2016 [facility] [address] [id number] [address] [place] [id number] 15 Apr, 2016 Disorganized schizophrenia F 20.1 [facility] [address] [id number] [address] [place] [id number] Mar, [facility] [address] [id number] [address] [place] [phone] Jan, Schizophrenia, disorganized F20.1 [facility] [address] [id number] [address] [place] [phone] December, [facility] [address] [id number] [address] [place] [id number] Nov, [facility] [address] [id number] [address] [place] [id number] 29 Oct, 2015 Disorganized schizophrenia, 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 [facility] [address] [id number] [address] [place] [id number] 15 Oct, 2015 [facility] [address] [id number] [address] [place] [id number] 19 Sep, 2015 [facility] [address] [id number] [address] [place] [id number] Sep, [facility] [address] [id number] [address] [place] [id number] Sep, [facility] [place] [address] [id number] [address] [place] [phone] Aug, [facility] [place] [address] [id number] [address] [place] [phone] Aug, Disorganized schizophrenia F 20.1 [facility] [place] [address] [id number] [address] [place] [phone] Aug, [facility] [place] [address] [id number] [address] [place] [id number] May, [facility] [place] [address] [id number] [address] [place] [id number] May, Schizophrenia, disorganized F20.1 [facility] [address] [id number] [address] [place] [id number] Feb, Disorganized schizophrenia, 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 [facility] [address] [id number] [address] [place] [id number] December, Disorganized schizophrenia, 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 [facility] [place] [address] [id number] [address] [place] [id number] Nov, [facility] [address] [id number] [address] [place] [phone] Nov, [facility] [place] [address] [id number] [address] [place] [phone] Jun, [facility] [place] [address] [id number] [address] [place] [id number] Jun, [facility] [address] [id number] [address] [place] [id number] Mar, [facility] [place] [address] [id number] [address] [place] [id number] Mar, [facility] [place] [address] [id number] [address] [place] [phone] December, [facility] [address] [id number] [address] [place] [address], [place] [id number] December, [facility] [address] [id number] [address] [place] [address], [place] [id number] Sep, [facility] [address] [id number] [address] [place] [address], [place] [id number] Sep, [facility] [address] [id number] [address] [place] [address], [place] [id number] Sep, [facility] [address] [id number] [address] [place] [address], [place] [id number] Sep, [facility] [address] [id number] [address] [place] [address], [place] [id number] Jun, [facility] [address] [id number] [address] [place] [address], [place] [id number] Jun, [facility] [address] [id number] [address] [place] [address], [place] [id number] May, [facility] [address] [id number] [address] [place] [address], [place] [id number] May, [facility] [address] [id number] [address] [place] [address], [place] [id number] Apr, [facility] [address] [id number] [address] [place] [address], [place] [id number] Mar, [facility] [address] [id number] [address] [place] [address], [place] [id number] Jan, [facility] [address] [id number] [address] [place] [address], [place] [id number] Jan, [facility] [address] [id number] [address] [place] [address], [place] [id number] Nov, [facility] [address] [id number] [address] [place] [address], [place] [id number] Nov, [facility] [address] [id number] [address] [place] [address], [place] [id number] 23 Nov, 2012 [facility] [address] [id number] [address] [place] [address], [place] [id number] 17 Nov, 2012 [facility] [address] [id number] [address] [place] [address], [place] [id number] 16 Nov, 2012 [facility] [address] [id number] [address] [place] [address], [place] [id number] 12 Nov, 2012 [facility] [address] [id number] [address] [place] [address], [place] [id number] 11 Nov, 2012 [facility] [address] [id number] [address] [place] [address], [place] [id number] 08 Nov, 2012 [facility] [address] [id number] [address] [place] [address], [place] [id number] 27 Oct, 2012 [facility] [address] [id number] [address] [place] [address], [place] [id number] 07 Oct, 2012 [facility] [address] [id number] [address] [place] [address], [place] [id number] 05 Oct, 2012 [facility] [address] [id number] [address] [place] [address], [place] [id number] Jul, [facility] [address] [id number] [address] [place] [address], [place] [id number] Jul, [facility] [address] [id number] [address] [place] [address], [place] [id number] 27 Apr, 2012 [facility] [address] [id number] [address] [place] [address], [place] [id number] 27 Jan, 2012 [facility] [address] [id number] [address] [place] [address], [place] [id number] 27 Oct, 2011 [facility] [address] [id number] [address] [place] [address], [place] [id number] 15 Oct, 2011 [facility] [address] [id number] [address] [place] [address], [place] [id number] 27 Sep, 2011 [facility] [address] [id number] [address] [place] [id number] Sep, [facility] [address] [facility] [id number] [address] [place] [id number] Aug, [facility] [address] [facility] [id number] [address] [place] [id number] Jul, [facility] [address] [facility] [id number] [address] [place] [id number] Jun, [facility] [address] [facility] [id number] [address] [place] [id number] Jun, [facility] [address] [facility] [id number] [address] [place] [id number] Jan, IMMUNIZATIONS No Known Immunizations SOCIAL HISTORY Never Assessed REASON FOR VISIT klonopin refill PLAN OF CARE VITAL SIGNS MEDICATIONS Medication Instructions Dosage Frequency Start Date End Date Duration S tatus Clonazepam 1 MG Orally prn anxiety TAKE ONE TABLET BY MOUTH TWICE NADINE Y 30 days Active RESULTS No Results PROCEDURES No Known procedures INSTRUCTIONS MEDICATIONS ADMINISTERED No Known Medications MEDICAL (GENERAL) HISTORY Type Description Date Medical History Disorganized schizophrenia, chronic cond ition
--- OUTSIDE RECORDS SUMMARY | 2020-01-12 07:36 | XMS REPORT ---
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 Active [id number] ALLERGIES No Information ENCOUNTERS Encounter Location Date Diagnosis [facility] [address] [id number] [address] [place] [address] May, [facility] [address] [facility] [id number] [address] [place] [phone] Feb, Schizophrenia, disorganized F20.1 [facility] [address] [facility] [id number] [address] [place] [address] December, Schizophrenia, disorganized F20.1 [facility] [address] [facility] [id number] [address] [place] [address] Oct, Schizophrenia, disorganized F20.1 [facility] [address] [facility] [id number] [address] [place] [phone] Sep, [facility] [address] [id number] [address] [place] [address] Jul, Schizophrenia, disorganized F20.1 [facility] [address] [facility] [id number] [address] [place] [address] 08 Jul, 2017 Schizophrenia, disorganized F20.1 [facility] [address] [facility] [id number] [address] [place] [address] Jun, Schizophrenia, disorganized F20.1 [facility] [address] [id number] [address] [place] [id number] 14 Apr, 2017 Schizophrenia, disorganized F20.1 [facility] [address] [id number] [address] [place] [phone] 11 Feb, 2017 Schizophrenia, disorganized F20.1 [facility] [address] [id number] [address] [place] [address], [place] [address] 15 Jan, 2017 Schizophrenia, disorganized F20.1 [facility] [address] [id number] [address] [place] [address], [place] [address] 14 Oct, 2016 Schizophrenia, disorganized F20.1 [facility] [address] [id number] [address] [place] [address], [place] [address] 15 Jul, 2016 Schizophrenia, disorganized F20.1 [facility] [address] [id number] [address] [place] [address], [place] [address] 09 Jun, 2016 [facility] [address] [id number] [address] [place] [phone] 15 Apr, 2016 Disorganized schizophrenia F 20.1 [facility] [address] [id number] [address] [place] [address] Mar, [facility] [address] [id number] [address] [place] [id number] 16 Jan, 2016 Schizophrenia, disorganized F20.1 [facility] [address] [id number] [address] [place] [address] December, [facility] [address] [id number] [address] [place] [address] Nov, [facility] [address] [id number] [address] [place] [phone] 29 Oct, 2015 Disorganized schizophrenia, 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 [facility] [address] [id number] [address] [place] [phone] 15 Oct, 2015 [facility] [address] [id number] [address] [place] [phone] Sep, [facility] [address] [id number] [address] [place] [address] Sep, [facility] [address] [id number] [address] [place] [address] Sep, [facility] [address] [id number] [address] [place] [phone] Aug, [facility] [address] [id number] [address] [place] [phone] Aug, Disorganized schizophrenia F 20.1 [facility] [address] [id number] [address] [place] [address] Aug, [facility] [address] [id number] [address] [place] [address] May, [facility] [address] [id number] [address] [place] [address] May, Schizophrenia, disorganized F20.1 [facility] [address] [id number] [address] [place] [id number] Feb, Disorganized schizophrenia, 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 [facility] [address] [id number] [address] [place] [address] December, Disorganized schizophrenia, 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 [facility] [address] [id number] [address] [place] [address] Nov, [facility] [address] [id number] [address] [place] [address] Nov, [facility] [address] [id number] [address] [place] [phone] Jun, [facility] [address] [id number] [address] [place] [phone] Jun, [facility] [address] [id number] [address] [place] [address] Mar, [facility] [address] [id number] [address] [place] [address] Mar, [facility] [address] [id number] [address] [place] [address], [place] [address] December, [facility] [address] [id number] [address] [place] [address], [place] [address] December, [facility] [address] [id number] [address] [place] [address], [place] [address] Sep, [facility] [address] [id number] [address] [place] [address], [place] [address] Sep, [facility] [address] [id number] [address] [place] [address], [place] [address] Sep, [facility] [address] [id number] [address] [place] [address], [place] [address] Sep, [facility] [address] [id number] [address] [place] [address], [place] [address] Jun, [facility] [address] [id number] [address] [place] [address], [place] [address] Jun, [facility] [address] [id number] [address] [place] [address], [place] [address] May, [facility] [address] [id number] [address] [place] [address], [place] [address] May, [facility] [address] [id number] [address] [place] [address], [place] [address] Apr, [facility] [address] [id number] [address] [place] [address], [place] [address] Mar, [facility] [address] [id number] [address] [place] [address], [place] [address] Jan, [facility] [address] [id number] [address] [place] [address], [place] [address] Jan, [facility] [address] [id number] [address] [place] [address], [place] [address] Nov, [facility] [address] [id number] [address] [place] [address], [place] [address] 25 Nov, 2012 [facility] [address] [id number] [address] [place] [address], [place] [address] 23 Nov, 2012 [facility] [address] [id number] [address] [place] [address], [place] [address] 17 Nov, 2012 [facility] [address] [id number] [address] [place] [address], [place] [address] 16 Nov, 2012 [facility] [address] [id number] [address] [place] [address], [place] [address] 12 Nov, 2012 [facility] [address] [id number] [address] [place] [address], [place] [address] 11 Nov, 2012 [facility] [address] [id number] [address] [place] [address], [place] [address] 08 Nov, 2012 [facility] [address] [id number] [address] [place] [address], [place] [address] 27 Oct, 2012 [facility] [address] [id number] [address] [place] [address], [place] [address] 07 Oct, 2012 [facility] [address] [id number] [address] [place] [address], [place] [address] 05 Oct, 2012 [facility] [address] [id number] [address] [place] [address], [place] [address] 27 Jul, 2012 [facility] [address] [id number] [address] [place] [address], [place] [address] 27 Jul, 2012 [facility] [address] [id number] [address] [place] [address], [place] [address] 27 Apr, 2012 [facility] [address] [id number] [address] [place] [address], [place] [address] 27 Jan, 2012 [facility] [address] [id number] [address] [place] [address], [place] [address] 27 Oct, 2011 [facility] [address] [id number] [address] [place] [address], [place] [address] 15 Oct, 2011 [facility] [address] [id number] [address] [place] [phone] Sep, [facility] [address] [id number] [address] [place] [phone] Sep, [facility] [address] [id number] [address] [place] [address] Aug, [facility] [address] [id number] [address] [place] [address] Jul, [facility] [address] [id number] [address] [place] [phone] Jun, [facility] [address] [id number] [address] [place] [address] Jun, [facility] [address] [id number] [address] [place] [address] Jan, IMMUNIZATIONS No Known Immunizations SOCIAL HISTORY Never Assessed REASON FOR VISIT f/Tania IRBY PLAN OF CARE Activity Details Follow Up 3 Months Reason: VITAL SIGNS Height 67.75 in 2018-03-04 Weight 186.9 lbs 2018-03-04 Heart Rate 82 bpm 2018-03-04 Respiratory Rate 18 2018-03-04 BMI 28.63 kg/m2 2018-03-04 Blood pressure systolic 110 mmHg 2018-03-04 Blood pressure diastolic 68 mmHg 2018-03-04 MEDICATIONS Medication Instructions Dosage Frequency Start Date End Date Duration S tatus Clonazepam 1 MG Orally twice a day as needed for anxiety 1 tablet 30 days Active Abilify 15 mg Orally Once a day 1 tablet 24h 90 days Active Benztropine Mesylate 0.5 MG Orally twice a day 1 tablet 12h 90 days Active RESULTS No Results PROCEDURES Procedure Date Ordered Result Body Site [facility] VISIT ESTABLISHED PATIENT March 04, 2018 INSTRUCTIONS MEDICATIONS ADMINISTERED No Known Medications MEDICAL (GENERAL) HISTORY Type Description Date Medical History Disorganized schizophrenia, chronic cond ition
--- OUTSIDE RECORDS SUMMARY | 2020-01-12 07:36 | XMS REPORT ---
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 Ac tive [id number] ALLERGIES No Information ENCOUNTERS Encounter Location Date Diagnosis [facility] [address] [id number] [address] [place] [address] Jan, [facility] [address] [id number] [address] [place] [id number] 16 Nov, 2018 Caries K02.9 ; Dental examin ation Z01.20 and Oral health maintenance status requiring routine preventive dental care K08.9 [facility] [address] [id number] [address] [place] [address] 15 Nov, 2018 Schizophrenia, 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 [facility] [address] [id number] [address] [place] [address], [place] [address] 07 Jun, 2018 Schizophrenia, 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 [facility] [address] [id number] [address] [place] [address], [place] [address] 08 May, 2018 Schizophrenia, 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 [facility] [address] [id number] [address] [place] [address], [place] [address] Feb, Schizophrenia, 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 [facility] [address] [id number] [address] [place] [address], [place] [address] December, Schizophrenia, 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 [facility] [address] [id number] [address] [place] [phone] Oct, Schizophrenia, 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 [facility] [address] [id number] [address] [place] [address], [place] [address] 07 Sep, 2017 [facility] [address] [id number] [address] [place] [address] 14 Jul, 2017 Schizophrenia, 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 [facility] [address] [id number] [address] [place] [address], [place] [address] 08 Jul, 2017 Schizophrenia, 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 [facility] [address] [id number] [address] [place] [id number] 16 Jun, 2017 Schizophrenia, 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 [facility] [address] [id number] [address] [place] [address], [place] [address] 14 Apr, 2017 Schizophrenia, 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 [facility] [address] [id number] [address] [place] [address], [place] [address] Feb, Schizophrenia, 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 [facility] [address] [id number] [address] [place] [phone] 15 Jan, 2017 Schizophrenia, 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 [facility] [address] [id number] [address] [place] [address], [place] [address] 14 Oct, 2016 Schizophrenia, 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 [facility] [address] [id number] [address] [place] [phone] 15 Jul, 2016 Schizophrenia, 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 [facility] [address] [id number] [address] [place] [phone] 09 Jun, 2016 [facility] [address] [id number] [address] [place] [phone] 15 Apr, 2016 Disorganized schizophrenia F 20.1 [facility] [address] [id number] [address] [place] [address], [place] [address] Mar, [facility] [address] [id number] [address] [place] [address] Jan, Schizophrenia, 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 [facility] [address] [id number] [address] [place] [address] December, [facility] [address] [id number] [address] [place] [address] Nov, [facility] [address] [id number] [address] [place] [id number] 29 Oct, 2015 Disorganized schizophrenia, 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 [facility] [address] [id number] [address] [place] [id number] 15 Oct, 2015 [facility] [address] [id number] [address] [place] [address] Sep, [facility] [address] [id number] [address] [place] [address] Sep, [facility] [address] [id number] [address] [place] [address] Sep, [facility] [address] [id number] [address] [place] [address] Aug, [facility] [address] [id number] [address] [place] [phone] Aug, Disorganized schizophrenia F 20.1 [facility] [address] [id number] [address] [place] [address], [place] [address] Aug, [facility] [address] [id number] [address] [place] [address], [place] [address] May, [facility] [address] [id number] [address] [place] [address] May, Schizophrenia, 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 [facility] [address] [id number] [address] [place] [address], [place] [address] Feb, Disorganized schizophrenia, 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 [facility] [address] [id number] [address] [place] [address], [place] [address] December, Disorganized schizophrenia, 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 [facility] [address] [id number] [address] [place] [address] Nov, [facility] [address] [id number] [address] [place] [address] Nov, [facility] [address] [id number] [address] [place] [address] Jun, [facility] [address] [id number] [address] [place] [address] Jun, [facility] [address] [id number] [address] [place] [address] Mar, [facility] [address] [id number] [address] [place] [address] Mar, [facility] [address] [id number] [address] [place] [address] December, [facility] [address] [id number] [address] [place] [phone] December, [facility] [address] [id number] [address] [place] [address] Sep, [facility] [address] [id number] [address] [place] [address], [place] [address] Sep, [facility] [address] [id number] [address] [place] [address], [place] [address] Sep, [facility] [address] [id number] [address] [place] [address], [place] [address] Sep, [facility] [address] [id number] [address] [place] [address], [place] [address] Jun, [facility] [address] [id number] [address] [place] [address], [place] [address] Jun, [facility] [address] [id number] [address] [place] [address], [place] [address] May, [facility] [address] [id number] [address] [place] [address], [place] [address] May, [facility] [address] [id number] [address] [place] [address], [place] [address] Apr, [facility] [address] [id number] [address] [place] [address], [place] [address] Mar, [facility] [address] [id number] [address] [place] [address], [place] [address] Jan, [facility] [address] [id number] [address] [place] [address], [place] [address] Jan, [facility] [address] [id number] [address] [place] [address], [place] [address] Nov, [facility] [address] [id number] [address] [place] [address], [place] [address] Nov, [facility] [address] [id number] [address] [place] [address], [place] [address] Nov, [facility] [address] [id number] [address] [place] [address], [place] [address] Nov, [facility] [address] [id number] [address] [place] [address], [place] [address] 16 Nov, 2012 [facility] [address] [id number] [address] [place] [address], [place] [address] 12 Nov, 2012 [facility] [address] [id number] [address] [place] [address], [place] [address] 11 Nov, 2012 [facility] [address] [id number] [address] [place] [address], [place] [address] 08 Nov, 2012 [facility] [address] [id number] [address] [place] [address], [place] [address] 27 Oct, 2012 [facility] [address] [id number] [address] [place] [address], [place] [address] 07 Oct, 2012 [facility] [address] [id number] [address] [place] [address], [place] [address] 05 Oct, 2012 [facility] [address] [id number] [address] [place] [address], [place] [address] 27 Jul, 2012 [facility] [address] [id number] [address] [place] [address], [place] [address] 27 Jul, 2012 [facility] [address] [id number] [address] [place] [address], [place] [address] 27 Apr, 2012 [facility] [address] [id number] [address] [place] [address], [place] [address] 27 Jan, 2012 [facility] [address] [id number] [address] [place] [address], [place] [address] Oct, [facility] [address] [id number] [address] [place] [address], [place] [address] Oct, [facility] [address] [id number] [address] [place] [address], [place] [address] Sep, [facility] [address] [id number] [address] [place] [address], [place] [address] Sep, [facility] [address] [id number] [address] [place] [address], [place] [address] Aug, [facility] [address] [facility] [id number] [address] [place] [id number] Jul, [facility] [address] [facility] [id number] [address] [place] [id number] Jun, [facility] [address] [facility] [id number] [address] [place] [address] Jun, [facility] [address] [facility] [id number] [address] [place] [id number] Jan, IMMUNIZATIONS No Known Immunizations SOCIAL HISTORY Never Assessed [place]ASON FOR V[place]IT [place] [place] VITAL SIGNS MEDICATIONS Unknown Medications RESULTS No Results PROCEDURES No Known procedures INSTRUCTIONS MEDICATIONS ADMINISTERED No Known Medications MEDICAL (GENERAL) HISTORY Type Description Date Medical History Disorganized schizophrenia, chronic cond ition Surgical History No Surgical history information Hospitalization History pneumonia 09/2018
--- OUTSIDE RECORDS SUMMARY | 2020-01-12 07:36 | XMS REPORT ---
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
--- OUTSIDE RECORDS SUMMARY | 2020-01-12 07:37 | XMS REPORT ---
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 Active 14022489 ALLERGIES No Information ENCOUNTERS Encounter Location Date Diagnosis [facility] [address] [facility] [id number] [address] [place] [address] Feb, [facility] [address] [facility] [id number] [address] [place] [address] December, Schizophrenia, 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 [facility] [address] [id number] [address] [place] [address] Oct, Schizophrenia, 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 [facility] [address] [facility] [id number] [address] [place] [address] 07 Sep, 2017 [facility] [address] [id number] [address] [place] [address] 14 Jul, 2017 Schizophrenia, 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 [facility] [address] [id number] [address] [place] [phone] 14 Oct, 2016 Schizophrenia, 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 [facility] [address] [id number] [address] [place] [id number] 15 Jul, 2016 Schizophrenia, 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 [facility] [address] [id number] [address] [place] [phone] 09 Jun, 2016 [facility] [address] [id number] [address] [place] [phone] 15 Apr, 2016 Disorganized schizophrenia F 20.1 [facility] [address] [id number] [address] [place] [phone] Mar, [facility] [address] [id number] [address] [place] [address] Jan, Schizophrenia, 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 [facility] [address] [id number] [address] [place] [phone] December, [facility] [address] [id number] [address] [place] [phone] Nov, [facility] [address] [id number] [address] [place] [phone] 29 Oct, 2015 Disorganized schizophrenia, 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 [facility] [address] [id number] [address] [place] [phone] 15 Oct, 2015 [facility] [address] [id number] [address] [place] [phone] 19 Sep, 2015 [facility] [address] [id number] [address] [place] [phone] Sep, [facility] [address] [id number] [address] [place] [phone] Sep, [facility] [address] [id number] [address] [place] [phone] Aug, [facility] [address] [id number] [address] [place] [address] Aug, Disorganized schizophrenia F 20.1 [facility] [address] [id number] [address] [place] [phone] Aug, [facility] [address] [id number] [address] [place] [phone] May, [facility] [address] [id number] [address] [place] [phone] May, Schizophrenia, 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 [facility] [address] [id number] [address] [place] [address] Feb, Disorganized schizophrenia, 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 [facility] [address] [id number] [address] [place] [address] December, Disorganized schizophrenia, 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 [facility] [address] [id number] [address] [place] [phone] Nov, [facility] [address] [id number] [address] [place] [phone] Nov, [facility] [address] [id number] [address] [place] [phone] Jun, [facility] [address] [id number] [address] [place] [phone] Jun, [facility] [address] [id number] [address] [place] [phone] Mar, [facility] [address] [id number] [address] [place] [phone] Mar, [facility] [address] [id number] [address] [place] [address] December, [facility] [address] [id number] [address] [place] [address], [place] [address] December, [facility] [address] [id number] [address] [place] [address], [place] [address] Sep, [facility] [address] [id number] [address] [place] [address], [place] [address] Sep, [facility] [address] [id number] [address] [place] [address], [place] [address] Sep, [facility] [address] [id number] [address] [place] [address], [place] [address] Sep, [facility] [address] [id number] [address] [place] [address], [place] [address] Jun, [facility] [address] [id number] [address] [place] [address], [place] [address] Jun, [facility] [address] [id number] [address] [place] [address], [place] [address] May, [facility] [address] [id number] [address] [place] [address], [place] [address] May, [facility] [address] [id number] [address] [place] [address], [place] [address] Apr, [facility] [address] [id number] [address] [place] [address], [place] [address] Mar, [facility] [address] [id number] [address] [place] [address], [place] [address] Jan, [facility] [address] [id number] [address] [place] [address], [place] [address] Jan, [facility] [address] [id number] [address] [place] [address], [place] [address] Nov, [facility] [address] [id number] [address] [place] [address], [place] [address] Nov, [facility] [address] [id number] [address] [place] [address], [place] [address] 23 Nov, 2012 [facility] [address] [id number] [address] [place] [address], [place] [address] 17 Nov, 2012 [facility] [address] [id number] [address] [place] [address], [place] [address] 16 Nov, 2012 [facility] [address] [id number] [address] [place] [address], [place] [address] 12 Nov, 2012 [facility] [address] [id number] [address] [place] [address], [place] [address] 11 Nov, 2012 [facility] [address] [id number] [address] [place] [address], [place] [address] 08 Nov, 2012 [facility] [address] [id number] [address] [place] [address], [place] [address] 27 Oct, 2012 [facility] [address] [id number] [address] [place] [address], [place] [address] 07 Oct, 2012 [facility] [address] [id number] [address] [place] [address], [place] [address] 05 Oct, 2012 [facility] [address] [id number] [address] [place] [address], [place] [address] Jul, [facility] [address] [id number] [address] [place] [address], [place] [address] Jul, [facility] [address] [id number] [address] [place] [address], [place] [address] 27 Apr, 2012 [facility] [address] [id number] [address] [place] [address], [place] [address] 27 Jan, 2012 [facility] [address] [id number] [address] [place] [address], [place] [address] 27 Oct, 2011 [facility] [address] [id number] [address] [place] [address], [place] [address] 15 Oct, 2011 [facility] [address] [id number] [address] [place] [address], [place] [address] 27 Sep, 2011 [facility] [address] [id number] [address] [place] [address] Sep, [facility] [address] [facility] [id number] [address] [place] [address] Aug, [facility] [address] [facility] [id number] [address] [place] [address] Jul, [facility] [address] [facility] [id number] [address] [place] [address] Jun, [facility] [address] [facility] [id number] [address] [place] [address] Jun, [facility] [address] [facility] [id number] [address] [place] [address] Jan, IMMUNIZATIONS No Known Immunizations SOCIAL HISTORY Never Assessed REASON FOR VISIT f/paulette Rivero rN PLAN OF CARE Activity Details Follow Up 3 Months Reason: VITAL SIGNS Height 67.75 in 2017-08-01 Weight 203 lbs 2017-08-01 Heart Rate 80 bpm 2017-08-01 BMI 31.09 kg/m2 2017-08-01 Blood pressure systolic 118 mmHg 2017-08-01 Blood pressure diastolic 74 mmHg 2017-08-01 MEDICATIONS Medication Instructions Dosage Frequency Start Date End Date Duration S tatus Abilify 15 MG Orally Once a day 1 tablet 24h 30 days Active Aristada 882 MG/3.2ML Intramuscular every 4 weeks 3.2 ml Apr, 30 day(s) Not-Taking Clonazepam 1 MG Orally twice a day as needed for anxiety 1 tablet 30 days Active Benztropine Mesylate 0.5 MG Orally Twice a day 1 tablet 12h 30 days Active RESULTS No Results PROCEDURES Procedure Date Ordered Result Body Site [facility] ESTABLISHED PATIENT Aug 01, 2017 INSTRUCTIONS MEDICATIONS ADMINISTERED No Known Medications MEDICAL (GENERAL) HISTORY Type Description Date Medical History Disorganized schizophrenia, chronic cond ition
--- OUTSIDE RECORDS SUMMARY | 2020-01-12 07:37 | XMS REPORT ---
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
--- OUTSIDE RECORDS SUMMARY | 2020-01-12 07:37 | XMS REPORT ---
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 Active Medications Medication Code System Code Instructions Start Date End Date Status Dosage Clonazepam [facility] [address]-86 1 MG Orally Twice a day Jul 09, 2014 1 tablet Abilify [facility] [address]-42 15 MG Orally Once a day Jul 09, 2014 1 tablet Trihexyphenidyl HCl [facility] [address]-12 2 MG Orally 2 times a day for side effects January 06, 2015 1 tablet Procedures Procedure Coding System Code Date Office Visit, Est Pt., Level 3 CPT-4 04162 Jun 02, 2015 [facility] VISIT ESTABLISHED PATIENT CPT-[address] 2014 Vital Signs Date/Time: Jun 02, 2015 Cardiac Monitoring Heart Rate 84 bpm Weight 181.6 lbs Height 67.75 in BMI 27.81 Index Blood Pressure Diastolic 60 mmHg Blood Pressure Systolic 110 mmHg Results No Known Results Summary Purpose [employer] Submission
--- OUTSIDE RECORDS SUMMARY | 2020-01-12 07:37 | XMS REPORT ---
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 Active [id number] Assessment Disorganized schizophrenia F20.1 Apr, Active [id number] ALLERGIES Substance Reaction Event Type Date Status Sulfa(sulfonamide Antibiotics) Unknown Non Drug Allergy Apr Active SOCIAL HISTORY No smoking Hx information available PLAN OF CARE VITAL SIGNS Height 67.75 in 2016-05-03 Weight 197.4 lbs 2016-05-03 Heart Rate 72 bpm 2016-05-03 Respiratory Rate 18 2016-05-03 BMI 30.23 kg/m2 2016-05-03 Blood pressure systolic 130 mmHg 2016-05-03 Blood pressure diastolic 75 mmHg 2016-05-03 MEDICATIONS Medication Instructions Dosage Frequency Start Date End Date Duration S tatus Abilify 15 MG Orally Once a day 1 tablet 24h Active Trihexyphenidyl HCl 2 MG TAKE ONE TABLET BY MOUTH TWICE DAILY FOR SIDE EFFECTS Active Clonazepam 1 MG TAKE ONE TABLET BY MOUTH TWICE DAILY Active RESULTS No Results PROCEDURES Procedure Date Ordered Related Diagnosis Body Site [facility] ESTABL[facility] PATIENT May 03, 2016 MH Office Visit, Est Pt., Level 3 May 03, 2016 IMMUNIZATIONS No Known Immunizations
--- OUTSIDE RECORDS SUMMARY | 2020-01-12 07:37 | XMS REPORT ---
Author Author Gaye Asher SERNA Organization [facility] Address [address] 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 Active 08563679 ALLERGIES Substance Reaction Event Type Date Status Sulfa(sulfonamide Antibiotics) Unknown Non Drug Allergy Jan Active ENCOUNTERS Encounter Location Date Diagnosis [facility] [id number] [place] [id number] Feb, [facility] [address] [facility] [id number] [address] [place] [id number] Oct, Schizophrenia, disorganized F20.1 [facility] [address] [place] [id number] [address] [place] [id number] Sep, [facility] [address] [id number] [address] [place] [id number] Jul, Schizophrenia, disorganized F20.1 [facility] [address] [facility] [id number] [address] [place] [id number] Jul, Schizophrenia, disorganized F20.1 [facility] [address] [facility] [id number] [address] [place] [id number] Jun, Schizophrenia, disorganized F20.1 [facility] [address] [facility] [id number] [address] [place] [id number] 14 Apr, 2017 Schizophrenia, disorganized F20.1 [facility] [address] [place] [id number] [address] [place] [id number] Feb, Schizophrenia, disorganized F20.1 [facility] [address] [id number] [address] [place] [address], [place] [address] 15 Jan, 2017 Schizophrenia, disorganized F20.1 [facility] [address] [id number] [address] [place] [address], [place] [address] 14 Oct, 2016 Schizophrenia, disorganized F20.1 [facility] [address] [id number] [address] [place] [address], [place] [address] 15 Jul, 2016 Schizophrenia, disorganized F20.1 [facility] [address] [id number] [address] [place] [address], [place] [address] Jun, [facility] [address] [id number] [address] [place] [address], [place] [phone] 15 Apr, 2016 Disorganized schizophrenia F 20.1 [facility] [address] [id number] [address] [place] [address], [place] [address] Mar, [facility] [address] [id number] [address] [place] [id number] Jan, Schizophrenia, disorganized F20.1 [facility] [address] [id number] [address] [place] [address], [place] [address] December, [facility] [address] [id number] [address] [place] [id number] Nov, [facility] [address] [id number] [address] [place] [id number] Oct, Disorganized schizophrenia, 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 [facility] [address] [id number] [address] [place] [address], [place] [address] Oct, [facility] [address] [id number] [address] [place] [address], [place] [address] Sep, [facility] [address] [id number] [address] [place] [id number] Sep, [facility] [address] [id number] [address] [place] [phone] Sep, [facility] [address] [id number] [address] [place] [phone] Aug, [facility] [address] [id number] [address] [place] [id number] Aug, Disorganized schizophrenia F 20.1 [facility] [address] [id number] [address] [place] [address], [place] [address] Aug, [facility] [address] [id number] [address] [place] [id number] May, [facility] [address] [id number] [address] [place] [id number] May, Schizophrenia, disorganized F20.1 [facility] [address] [id number] [address] [place] [id number] Feb, Disorganized schizophrenia, 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 [facility] [address] [id number] [address] [place] [id number] December, Disorganized schizophrenia, 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 [facility] [address] [id number] [address] [place] [id number] Nov, [facility] [address] [id number] [address] [place] [id number] Nov, [facility] [address] [id number] [address] [place] [id number] Jun, [facility] [address] [id number] [address] [place] [id number] Jun, [facility] [address] [id number] [address] [place] [id number] Mar, [facility] [address] [id number] [address] [place] [phone] Mar, [facility] [address] [id number] [address] [place] [phone] December, [facility] [address] [id number] [address] [place] [id number] December, [facility] [address] [id number] [address] [place] [address], [place] [address] Sep, [facility] [address] [id number] [address] [place] [address], [place] [address] Sep, [facility] [address] [id number] [address] [place] [address], [place] [address] Sep, [facility] [address] [id number] [address] [place] [address], [place] [address] Sep, [facility] [address] [id number] [address] [place] [address], [place] [address] Jun, [facility] [address] [id number] [address] [place] [address], [place] [address] Jun, [facility] [address] [id number] [address] [place] [address], [place] [address] May, [facility] [address] [id number] [address] [place] [address], [place] [address] May, [facility] [address] [id number] [address] [place] [address], [place] [address] Apr, [facility] [address] [id number] [address] [place] [address], [place] [address] Mar, [facility] [address] [id number] [address] [place] [address], [place] [address] Jan, [facility] [address] [id number] [address] [place] [address], [place] [address] Jan, [facility] [address] [id number] [address] [place] [address], [place] [address] Nov, [facility] [address] [id number] [address] [place] [address], [place] [address] Nov, [facility] [address] [id number] [address] [place] [address], [place] [address] Nov, [facility] [address] [id number] [address] [place] [address], [place] [address] 17 Nov, 2012 [facility] [address] [id number] [address] [place] [address], [place] [address] 16 Nov, 2012 [facility] [address] [id number] [address] [place] [address], [place] [address] 12 Nov, 2012 [facility] [address] [id number] [address] [place] [address], [place] [address] 11 Nov, 2012 [facility] [address] [id number] [address] [place] [address], [place] [address] 08 Nov, 2012 [facility] [address] [id number] [address] [place] [address], [place] [address] 27 Oct, 2012 [facility] [address] [id number] [address] [place] [address], [place] [address] 07 Oct, 2012 [facility] [address] [id number] [address] [place] [address], [place] [address] 05 Oct, 2012 [facility] [address] [id number] [address] [place] [address], [place] [address] 27 Jul, 2012 [facility] [address] [id number] [address] [place] [address], [place] [address] Jul, [facility] [address] [id number] [address] [place] [address], [place] [address] 27 Apr, 2012 [facility] [address] [id number] [address] [place] [address], [place] [address] 27 Jan, 2012 [facility] [address] [id number] [address] [place] [address], [place] [address] 27 Oct, 2011 [facility] [address] [id number] [address] [place] [address], [place] [address] 15 Oct, 2011 [facility] [address] [id number] [address] [place] [address], [place] [address] 27 Sep, 2011 [facility] [address] [id number] [address] [place] [address], [place] [address] Sep, [facility] [address] [facility] [id number] [address] [place] [phone] Aug, [facility] [address] [id number] [address] [place] [phone] Jul, [facility] [address] [facility] [id number] [address] [place] [id number] Jun, [facility] [address] [facility] [id number] [address] [place] [phone] Jun, [facility] [address] [facility] [id number] [address] [place] [phone] Jan, IMMUNIZATIONS No Known Immunizations SOCIAL HISTORY Never Assessed REASON FOR VISIT doug/adelso Shah MA PLAN OF CARE Activity Details Follow Up 3 Months with new provider Amanda grajeda: VITAL SIGNS Height 67.75 in 2017-01-31 Weight 201.4 lbs 2017-01-31 Heart Rate 64 bpm 2017-01-31 Respiratory Rate 18 2017-01-31 BMI 30.85 kg/m2 2017-01-31 Blood pressure systolic 113 mmHg 2017-01-31 Blood pressure diastolic 83 mmHg 2017-01-31 MEDICATIONS Medication Instructions Dosage Frequency Start Date End Date Duration S tatus Benztropine Mesylate 0.5 MG Orally BID 1 tablet 12h 14 Oct, 2016 Active Clonazepam 1 MG Orally prn anxiety TAKE ONE TABLET BY MOUTH TWICE DAILY Active Abilify 15 MG Orally Once a day 1 tablet 24h 30 days Active RESULTS No Results PROCEDURES Procedure Date Ordered Result Body Site [facility] VISIT ESTABLISHED PATIENT January 31, 2017 INSTRUCTIONS MEDICATIONS ADMINISTERED No Known Medications MEDICAL (GENERAL) HISTORY Type Description Date Medical History Disorganized schizophrenia, chronic cond ition
--- OUTSIDE RECORDS SUMMARY | 2020-01-12 07:37 | XMS REPORT ---
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
--- OUTSIDE RECORDS SUMMARY | 2020-01-12 07:37 | XMS REPORT ---
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 [id number] ALLERGIES Substance Reaction Event Type Date Status Sulfa(sulfonamide Antibiotics) Unknown Non Drug Allergy Oct Active SOCIAL HISTORY Never Assessed PLAN OF CARE Activity Details Follow Up 3 Months Reason: VITAL SIGNS Height 67.75 in 2016-10-30 Weight 204.0 lbs 2016-10-30 Heart Rate 76 bpm 2016-10-30 Respiratory Rate 18 2016-10-30 BMI 31.24 kg/m2 2016-10-30 Blood pressure systolic 113 mmHg 2016-10-30 Blood pressure diastolic 61 mmHg 2016-10-30 MEDICATIONS Medication Instructions Dosage Frequency Start Date End Date Duration S tatus Abilify 15 MG Orally Once a day 1 tablet 24h Active Benztropine Mesylate 0.5 MG Orally BID 1 tablet 12h 14 Oct, 2016 30 day(s) Active Clonazepam 1 MG Orally prn anxiety TAKE ONE TABLET BY MOUTH TWICE NADINE Y 30 days Active RESULTS No Results PROCEDURES Procedure Date Ordered Result Body Site [facility] VISIT ESTABLISHED PATIENT October 30, 2016 IMMUNIZATIONS No Known Immunizations MEDICAL (GENERAL) HISTORY Type Description Date Medical History Disorganized schizophrenia, chronic cond ition
--- OUTSIDE RECORDS SUMMARY | 2020-01-12 07:37 | XMS REPORT ---
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
--- OUTSIDE RECORDS SUMMARY | 2020-01-12 07:37 | XMS REPORT ---
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 [id number] ALLERGIES No Information ENCOUNTERS Encounter Location Date Diagnosis [facility] [address] [id number] [address] [place] [address] Feb, [facility] [address] [id number] [address] [place] [address] Oct, Schizophrenia, disorganized F20.1 [facility] [address] [id number] [address] [place] [address] Sep, [facility] [address] [id number] [address] [place] [address] Jul, Schizophrenia, disorganized F20.1 [facility] [address] [id number] [address] [place] [id number] 08 Jul, 2017 Schizophrenia, disorganized F20.1 [facility] [address] [id number] [address] [place] [address] Jun, Schizophrenia, disorganized F20.1 [facility] [address] [id number] [address] [place] [address] 14 Apr, 2017 Schizophrenia, disorganized F20.1 [facility] [address] [id number] [address] [place] [address] Feb, Schizophrenia, disorganized F20.1 [facility] [address] [id number] [address] [place] [address] 15 Jan, 2017 Schizophrenia, disorganized F20.1 [facility] [address] [id number] [address] [place] [address], [place] [address] 14 Oct, 2016 Schizophrenia, disorganized F20.1 [facility] [address] [id number] [address] [place] [address], [place] [address] 15 Jul, 2016 Schizophrenia, disorganized F20.1 [facility] [address] [id number] [address] [place] [address], [place] [address] 09 Jun, 2016 [facility] [address] [id number] [address] [place] [address], [place] [address] 15 Apr, 2016 Disorganized schizophrenia F 20.1 [facility] [address] [id number] [address] [place] [address], [place] [address] Mar, [facility] [address] [id number] [address] [place] [address] Jan, Schizophrenia, disorganized F20.1 [facility] [address] [id number] [address] [place] [address] December, [facility] [address] [id number] [address] [place] [address] Nov, [facility] [address] [id number] [address] [place] [address] Oct, Disorganized schizophrenia, 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 [facility] [address] [id number] [address] [place] [address] 15 Oct, 2015 [facility] [address] [id number] [address] [place] [address] Sep, [facility] [address] [id number] [address] [place] [address] Sep, [facility] [address] [id number] [address] [place] [address] Sep, [facility] [address] [id number] [address] [place] [address] Aug, [facility] [address] [id number] [address] [place] [address] Aug, Disorganized schizophrenia F 20.1 [facility] [address] [id number] [address] [place] [address] Aug, [facility] [address] [id number] [address] [place] [address] May, [facility] [address] [id number] [address] [place] [address] May, Schizophrenia, disorganized F20.1 [facility] [address] [id number] [address] [place] [address] Feb, Disorganized schizophrenia, 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 [facility] [address] [id number] [address] [place] [address] December, Disorganized schizophrenia, 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 [facility] [address] [id number] [address] [place] [address] Nov, [facility] [address] [id number] [address] [place] [address] Nov, [facility] [address] [id number] [address] [place] [address] Jun, [facility] [address] [id number] [address] [place] [address] Jun, [facility] [address] [id number] [address] [place] [address] Mar, [facility] [address] [id number] [address] [place] [address] Mar, [facility] [address] [id number] [address] [place] [address] December, [facility] [address] [id number] [address] [place] [address] December, [facility] [address] [id number] [address] [place] [address], [place] [id number] 18 Sep, 2013 [facility] [address] [id number] [address] [place] [address], [place] [address] 18 Sep, 2013 [facility] [address] [id number] [address] [place] [address], [place] [address] Sep, [facility] [address] [id number] [address] [place] [address], [place] [address] Sep, [facility] [address] [id number] [address] [place] [address], [place] [address] Jun, [facility] [address] [id number] [address] [place] [address], [place] [address] Jun, [facility] [address] [id number] [address] [place] [address], [place] [address] May, [facility] [address] [id number] [address] [place] [address], [place] [address] May, [facility] [address] [id number] [address] [place] [address], [place] [address] Apr, [facility] [address] [id number] [address] [place] [address], [place] [address] Mar, [facility] [address] [id number] [address] [place] [address], [place] [address] Jan, [facility] [address] [id number] [address] [place] [address], [place] [address] Jan, [facility] [address] [id number] [address] [place] [address], [place] [address] Nov, [facility] [address] [id number] [address] [place] [address], [place] [address] Nov, [facility] [address] [id number] [address] [place] [address], [place] [address] Nov, [facility] [address] [id number] [address] [place] [address], [place] [address] Nov, [facility] [address] [id number] [address] [place] [address], [place] [address] 16 Nov, 2012 [facility] [address] [id number] [address] [place] [address], [place] [id number] 12 Nov, 2012 [facility] [address] [id number] [address] [place] [address], [place] [address] 11 Nov, 2012 [facility] [address] [id number] [address] [place] [address], [place] [id number] 08 Nov, 2012 [facility] [address] [id number] [address] [place] [address], [place] [address] 27 Oct, 2012 [facility] [address] [id number] [address] [place] [address], [place] [id number] 07 Oct, 2012 [facility] [address] [id number] [address] [place] [address], [place] [id number] 05 Oct, 2012 [facility] [address] [id number] [address] [place] [address], [place] [id number] 27 Jul, 2012 [facility] [address] [id number] [address] [place] [address], [place] [address] Jul, [facility] [address] [id number] [address] [place] [address], [place] [id number] 27 Apr, 2012 [facility] [address] [id number] [address] [place] [address], [place] [address] Jan, [facility] [address] [id number] [address] [place] [address], [place] [address] Oct, [facility] [address] [id number] [address] [place] [address], [place] [address] Oct, [facility] [address] [id number] [address] [place] [address], [place] [address] Sep, [facility] [address] [id number] [address] [place] [address], [place] [address] Sep, [facility] [address] [id number] [address] [place] [address] 27 Aug, 2011 [facility] [address] [id number] [address] [place] [address] 16 Jul, 2011 [facility] [address] [id number] [address] [place] [address] Jun, [facility] [address] [id number] [address] [place] [address] Jun, [facility] [address] [id number] [address] [place] [address] 17 Jan, 2011 IMMUNIZATIONS No Known Immunizations SOCIAL HISTORY Never Assessed REASON FOR VISIT BH intake. Lizzy SILVA PLAN OF CARE Activity Details Follow Up 3 Months Reason: VITAL SIGNS Height 67.75 in 2017-05-02 Weight 204.4 lbs 2017-05-02 Heart Rate 70 bpm 2017-05-02 Respiratory Rate 18 2017-05-02 BMI 31.31 kg/m2 2017-05-02 Blood pressure systolic 138 mmHg 2017-05-02 Blood pressure diastolic 72 mmHg 2017-05-02 MEDICATIONS Medication Instructions Dosage Frequency Start Date End Date Duration S tatus Abilify 15 MG Orally Once a day TAKE ONE TABLET BY MOUTH ONCE DAILY 24 h 30 days Active Aristada 882 MG/3.2ML Intramuscular every 4 weeks 3.2 ml Apr, 30 day(s) Active Benztropine Mesylate 0.5 MG Orally BID 1 tablet 12h 14 Oct, 2016 30 days Active Clonazepam 1 MG Orally prn anxiety TAKE ONE TABLET BY MOUTH TWICE NADINE Y 30 days Active RESULTS Name Result Date Reference Range A1C 2017-05-02 Hemoglobin A1c 5.7 4.8-5.6 TSH 2017-05-02 TSH 2.040 0.450-4.500 CBC 2017-05-02 WBC 5.6 3.4-10.8 RBC 4.16 4.14-5.80 Hemoglobin 11.7 12.6-17.7 Hematocrit 35.7 37.5-51.0 MCV 86 79-97 MCH 28.1 26.6-33.0 MCHC 32.8 31.5-35.7 RDW 13.9 12.3-15.4 Platelets 265 150-379 Neutrophils 65 Lymphs 16 Monocytes 13 Eos 5 Basos 1 Neutrophils (Absolute) 3.7 1.4-7.0 Lymphs (Absolute) 0.9 0.7-3.1 Monocytes(Absolute) 0.8 0.1-0.9 Eos (Absolute) 0.3 0.0-0.4 Baso (Absolute) 0.0 0.0-0.2 Immature Granulocytes 0 Immature Grans (Abs) 0.0 0.0-0.1 LIPID PANEL 2017-05-02 Cholesterol, Total 160 100-199 Triglycerides 174 0-149 HDL Cholesterol 34 >39 VLDL Cholesterol Davon 35 5-40 LDL Cholesterol Calc 91 0-99 Comment: CMP 2017-05-02 Glucose, Serum 112 65-99 BUN 19 8-27 Creatinine, Serum 0.97 0.76-1.27 eGFR If NonAfricn Am 84 >59 eGFR If Africn Am 97 >59 BUN/Creatinine Ratio 20 10-24 Sodium, Serum 140 134-144 Potassium, Serum 4.6 3.5-5.2 Chloride, Serum 102 96-106 Carbon Dioxide, Total 24 18-29 Calcium, Serum 9.2 8.6-10.2 Protein, Total, Serum 7.2 6.0-8.5 Albumin, Serum 3.8 3.6-4.8 Globulin, Total 3.4 1.5-4.5 A/G Ratio 1.1 1.2-2.2 Bilirubin, Total <0.2 0.0-1.2 Alkaline Phosphatase, S 89 39-117 AST (SGOT) 17 0-40 ALT (SGPT) 18 0-44 PROCEDURES Procedure Date Ordered Result Body Site [facility] VISIT ESTABLISHED PATIENT May 02, 2017 LAB NOT BILLED BY [employer] May 02, 2017 Hemoglobin Test Send Out 0 dollar May 02, 2017 VENIPUNCT, ROUTINE* May 02, 2017 INSTRUCTIONS MEDICATIONS ADMINISTERED No Known Medications MEDICAL (GENERAL) HISTORY Type Description Date Medical History Disorganized schizophrenia, chronic cond ition
--- OUTSIDE RECORDS SUMMARY | 2020-01-12 07:37 | XMS REPORT | Continuity of Care Document ---
Author Organization Unknown Address Unknown Phone Unavailable Allergies Active Description Code Type Severity Reaction Onset Reported/Identified Relationship to Patient Clinical Status Yes SULFA (SULFONAMIDE ANTIBIOTICS) MODERATE MODERATE Yes SULFA (SULFONAMIDE ANTIBIOTICS) MODERATE OTHER Yes Sulfa(Sulfonamide Antibiotics) Drug Allergy 05/15/2012 Yes Sulfa(Sulfonamide Antibiotics) Drug Allergy N/A N/A 05/15/2012 Medications Medication Packaging Start Date St op Date Route Dosage Sig ACETAMINOPHEN ORAL TABLET 325mg(Tylenol) MG 09/21/2017 09/21/2017 ONCE&1725 LACTATED RINGERS 1000CC IV BAG INJ ml 09/21/2017 09/28/2017 CONTINUOUSEVERY 0 Hour KETOROLAC VIAL INJ 30 MG/CC (TORADOL VIAL) MG 09/21/2017 09/21/2017 ONCE&1805 LACTATED RINGERS 1000CC IV BAG INJ ml 09/21/2017 09/21/2017 ONCE&1940 LACTATED RINGERS 1000CC IV BAG INJ ml 09/21/2017 09/28/2017 CONTINUOUSEVERY 0 Hour ACETAMINOPHEN ORAL TABLET 325mg(Tylenol) MG 09/21/2017 09/28/2017 PRN EVERY 4 Hour D5 1/2 NS 1000CC IV BAG INJ ml 09/21/2017 09/28/2017 CONTINUOUSEVERY 0 Hour AZITHROMYCIN TAB 500 MG (ZITHROMAX) MG 09/21/2017 09/25/2017 Daily&2100 ENOXAPARIN SYRINGE INJ 40 MG (LOVENOX SYRI NGE) MG 09/21/2017 09/30/2017 Daily&2100 IPRATROPIUM/ALBUTEROL INH SO LN (DUO-NEB INH SOLN) MLS 09/21/2017 09/28/2017 QID&0600,1100,1600,2100 NORMAL SALINE 50CC IV BAG IN J (NS 50CC MINI-BAG) ml 09/21/2017 09/27/2017 Daily&0900,2100 PANTOPAZOLE VIAL INJ 40 MG (PROTONIX IV) MG 09/21/2017 09/30/2017 Daily&2100 ARIPIPRAZOLE TAB 15 MG (ABILIFY) Dose(s) 09/21/2017 09/27/2017 Daily&0900 CLONAZEPAM TAB 1 MG (KLONOPIN) Dose(s) 09/21/2017 09/28/2017 BID&0800,2000 BENZTROPINE TAB 0.5 MG (COGENTIN) Dose(s) 09/21/2017 09/28/2017 BID&0800,2000 IBUPROFEN TAB 600 MG (MOTRIN) MG 09/21/2017 09/28/2017 PRN Q6H ACETAMINOPHEN TAB 500 MG (TYLENOL) MG 09/22/2017 09/22/2017 PRN ONCE IBUPROFEN TAB 800 MG (MOTRIN) MG 09/22/2017 09/29/2017 PRN Q8H ACETAMINOPHEN ORAL TABLET 325mg(Tylenol) MG 09/20/2018 09/20/2018 PRN ONCE IPRATROPIUM/ALBUTEROL INH SO LN (DUO-NEB INH SOLN) MLS 09/20/2018 09/20/2018 ONCE&2256 NORMAL SALINE 1000CC IV BAG INJ 0.9 % (NS 1000CC IV BAG) ml 09/20/2018 10/05/2018 CONTINUOUSEVERY 0 Hour Normal SALINE 0.9 % (NS 100cc) (plain bag) ml 09/20/2018 09/20/2018 ONCE&2335 ACETAMINOPHEN ORAL TABLET 325mg(Tylenol) MG 09/21/2018 10/20/2018 PRN EVERY 6 Hour Normal SALINE 0.9 % (NS 100cc) (plain bag) ml 09/21/2018 10/06/2018 CONTINUOUSEVERY 0 Hour Morphine IV cartridge 4mg/cc MG 09/21/2018 09/28/2018 PRN Q4H NORMAL SALINE 500CC IV BAG I NJ 0.9 % (NS 500CC IV BAG) ml 09/21/2018 09/21/2018 ONCE&0330 IBUPROFEN TAB 600 MG (MOTRIN) MG 09/21/2018 09/28/2018 PRN Q6H GUAIFENESIN TAB 600 MG (MUCINEX) MG 09/21/2018 09/27/2018 Q12H&0600,1800 Normal SALINE 0.9 % (NS 100cc) (plain bag) ml 09/21/2018 09/27/2018 Q12H - 06:00,18:00&0600,1800 ALBUTEROL SVN 2.5MG/3CC LIQ 2.5 MG (PROVENTIL ARMAAN 2.5MG/3CC) MG 09/21/2018 09/30/2018 QID&0600,1100,1600,2100 CLONAZEPAM TAB 1 MG (KLONOPIN) MG 09/21/2018 09/28/2018 BID&0800,2000 BENZTROPINE TAB 0.5 MG (COGENTIN) MG 09/21/2018 09/27/2018 BID&0800,2000 ENOXAPARIN SYRINGE INJ 40 MG (LOVENOX SYRI NGE) MG 09/21/2018 09/30/2018 Daily&0900 ARIPIPRAZOLE TAB 15 MG (ABILIFY) Dose(s) 09/21/2018 09/27/2018 Daily&0900 Flu vacc [id number] Persons 6 mo T older(PF) IM syringe/vial(Fluarix QUAD) Adult ML 09/21/2018 019 ONCE&094 9 PNEUMONIA VACCINE INJ (PREVNAR-13) ml 09/21/2018 09/21/2018 ONCE&0949 CLONAZEPAM TAB 1 MG (KLONOPIN) MG 09/21/2018 09/28/2018 PRN BID ACETAMINOPHEN ORAL TABLET 325mg(Tylenol) MG 09/24/2018 10/24/2018 PRN EVERY 6 Hour METHYLPREDNISOLONE VIAL INJ 40 MG/CC (SOLU-MEDROL VIAL) MG 09/24/2018 09/24/2018 ONCE&1000 ALBUTEROL SVN 2.5MG/3CC LIQ 2.5 MG (PROVENTIL ARMAAN 2.5MG/3CC) MG 09/24/2018 10/24/2018 QID&0600,1100,1600,2100 IBUPROFEN TAB 600 MG (MOTRIN) MG 09/24/2018 10/24/2018 PRN Q6H GUAIFENESIN TAB 600 MG (MUCINEX) MG 09/24/2018 10/24/2018 Q12H&0600,1800 Normal SALINE 0.9 % (NS 100cc) (plain bag) ml 09/24/2018 09/27/2018 Q12H&0600,1800 METHYLPREDNISOLONE VIAL INJ 40 MG/CC (SOLU-MEDROL VIAL) MG 09/24/2018 09/29/2018 Q12H&0600,1800 CLONAZEPAM TAB 1 MG (KLONOPIN) MG 09/24/2018 10/24/2018 PRN BID BENZTROPINE TAB 0.5 MG (COGENTIN) MG 09/24/2018 10/24/2018 BID&0800,2000 METHYLPREDNISOLONE VIAL INJ 40 MG/CC (SOLU-MEDROL VIAL) MG 09/24/2018 09/29/2018 Q12H&0800,2000 ENOXAPARIN SYRINGE INJ 40 MG (LOVENOX SYRI NGE) MG 09/25/2018 10/03/2018 Daily&0900 ARIPIPRAZOLE TAB 15 MG (ABILIFY) MG 09/25/2018 10/23/2018 Daily&0900 CEFDINIR CAP 300 MG (OMNICEF) MG 09/26/2018 09/27/2018 BID&0800 Problems Date Dx Coded Attending Type Code Diagnosis Diagnosed By 12/11/2010 294.9 OR C OG DIS NOS 12/11/2010 298.9 P PS YCHOSIS NOS 12/11/2010 V58.69 MED ICATION HIGH RISK 12/11/2010 BEVERLY LYNCH DO F 294 .9 OR COG DIS NOS 12/11/2010 BEVERLY LYNCH DO F 298 .9 P PSYCHOSIS NOS 12/11/2010 BEVERLY LYNCH DO F V58 .69 MEDICATION HIGH RISK 12/11/2010 294.9 OR C OG DIS NOS 12/11/2010 298.9 P PS YCHOSIS NOS 12/11/2010 V58.69 MED ICATION HIGH RISK 12/11/2010 294.9 OR C OG DIS NOS 12/11/2010 298.9 P PS YCHOSIS NOS 12/11/2010 V58.69 MED ICATION HIGH RISK 12/11/2010 BEVERLY LYNCH DO F 294 .9 OR COG DIS NOS 12/11/2010 BEVERLY LYNCH DO F 298 .9 P PSYCHOSIS NOS 12/11/2010 TIMOTHY LYNCH DOEN F V58 .69 MEDICATION HIGH RISK 12/11/2010 SANA OJEDA APRN 294.9 OR COG DIS NOS 12/11/2010 SANA OJEDA APRN 298.9 P PSYCHOSIS NOS 12/11/2010 SANA OJEDA APRN V58.69 MEDICATION HIGH RISK 12/11/2010 SANA OJEDA APRN 294.9 OR COG DIS NOS 12/11/2010 SANA OJEDA APRN 298.9 P PSYCHOSIS NOS 12/11/2010 SANA OJEDA APRN V58.69 MEDICATION HIGH RISK 12/11/2010 SANA OJEDA APRN 294.9 OR COG DIS NOS 12/11/2010 SANA OJEDA APRN 298.9 P PSYCHOSIS NOS 12/11/2010 SANA OJEDA APRN V58.69 MEDICATION HIGH RISK 12/11/2010 LAWRENCE PARISI MD 294.9 OR COG DIS NOS 12/11/2010 LAWRENCE PARISI MD 298.9 P PSYCHOSIS NOS 12/11/2010 LAWRENCE PARISI MD V58.6 9 MEDICATION HIGH RISK 12/11/2010 SOHA COLBY NHUNG 294 .9 OR COG DIS NOS 12/11/2010 SOHA [employer] SUPERVISOR, NHUNG 298 .9 P PSYCHOSIS NOS 12/11/2010 SOHAGLENDA BOWMAN NHUNG V58 .69 MEDICATION HIGH RISK 12/11/2010 SOHA COLBY NHUNG 294 .9 OR COG DIS NOS 12/11/2010 S[employer]A [employer] SUPERVISOR, NHUNG 298 .9 P PSYCHOSIS NOS 12/11/2010 S[employer]A [employer] SUPERVISOR, NHUNG V58 .69 MEDICATION HIGH RISK 12/26/2010 295.10 P S CHIZO DISORG UNSPECIFIED 12/26/2010 BEVERLY LYNCH DO 295 .10 P SCHIZO DISORG UNSPECIFIED 12/26/2010 295.10 P S CHIZO DISORG UNSPECIFIED 12/26/2010 295.10 P S CHIZO DISORG UNSPECIFIED 12/26/2010 BEVERLY LYNCH DO 295 .10 P SCHIZO DISORG UNSPECIFIED 12/26/2010 SANA OJEDA APRN 295.10 P SCHIZO DISORG UNSPECIFIED 12/26/2010 SANA OJEDA APRN 295.10 P SCHIZO DISORG UNSPECIFIED 12/26/2010 SANA OJEDA APRN 295.10 P SCHIZO DISORG UNSPECIFIED 12/26/2010 LAWRENCE PARISI MD 295.1 0 P SCHIZO DISORG UNSPECIFIED 12/26/2010 SOHA BOWMAN NHUNG 295 .10 P SCHIZO DISORG UNSPECIFIED 12/26/2010 SOHA [employer] SUPERVISOR, NHUNG 295 .10 P SCHIZO DISORG UNSPECIFIED 01/09/2011 295.30 P S CHIZO PARANOID UNSPECIFIED 01/09/2011 BEVERLY LYNCH DO F 295 .30 P SCHIZO PARANOID UNSPECIFIED 01/09/2011 295.30 P S CHIZO PARANOID UNSPECIFIED 01/09/2011 295.30 P S CHIZO PARANOID UNSPECIFIED 01/09/2011 BEVERLY LYNCH DO 295 .30 P SCHIZO PARANOID UNSPECIFIED 01/09/2011 SANA OJEDA APRN 295.30 P SCHIZO PARANOID UNSPECIFIED 01/09/2011 SANA OJEDA APRN 295.30 P SCHIZO PARANOID UNSPECIFIED 01/09/2011 SANA OJEDA APRN 295.30 P SCHIZO PARANOID UNSPECIFIED 01/09/2011 LAWRENCE PARISI MD 295.3 0 P SCHIZO PARANOID UNSPECIFIED 01/09/2011 NHUNG HOYOS APRN 295 .30 P SCHIZO PARANOID UNSPECIFIED 01/09/2011 NHUNG HOYOS APRN 295 .30 P SCHIZO PARANOID UNSPECIFIED 01/12/2011 318.0 MODE RATE MENTAL RETARDATION 01/12/2011 BEVERLY LYNCH DO 318 .0 MODERATE MENTAL RETARDATION 01/12/2011 318.0 MODE RATE MENTAL RETARDATION 01/12/2011 318.0 MODE RATE MENTAL RETARDATION 01/12/2011 BEVERLY LYNCH DO 318 .0 MODERATE MENTAL RETARDATION 01/12/2011 SANA OJEDA APRN 318.0 MODERATE MENTAL RETARDATION 01/12/2011 SANA OJEDA APRN 318.0 MODERATE MENTAL RETARDATION 01/12/2011 SANA OJEDA APRN 318.0 MODERATE MENTAL RETARDATION 01/12/2011 LAWRENCE PARISI MD 318.0 MODERATE MENTAL RETARDATION 01/12/2011 NHUNG HOYOS APRN 318 .0 MODERATE MENTAL RETARDATION 01/12/2011 NHUNG HOYOS APRN 318 .0 MODERATE MENTAL RETARDATION 01/27/2011 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 01/27/2011 BEVERLY LYNCH DO F 295 .31 P SCHIZO PARANOID SUBCHRONIC 01/27/2011 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 01/27/2011 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 01/27/2011 BEVERLY LYNCH DO F 295 .31 P SCHIZO PARANOID SUBCHRONIC 01/27/2011 G[employer]ON H[employer] SERVICES SUPERVISORSANA Ortega 295.31 P SCHIZO PARANOID SUBCHRONIC 01/27/2011 [employer] SUPERVISOR, SANA D 295.31 P SCHIZO PARANOID SUBCHRONIC 01/27/2011 [employer] SUPERVISOR, SANA Blake 295.31 P SCHIZO PARANOID SUBCHRONIC 01/27/2011 ISAK BUSTOS, LAWRENCE 295.3 1 P SCHIZO PARANOID SUBCHRONIC 01/27/2011 SOHA [employer] SUPERVISOR, NHUNG 295 .31 P SCHIZO PARANOID SUBCHRONIC 01/27/2011 SOHA [employer] SUPERVISOR, NHUNG 295 .31 P SCHIZO PARANOID SUBCHRONIC 07/09/2014 S[employer]A [employer] SUPERVISOR, NHUNG 295 .12 P SCHIZO DISORG CHRONIC 09/21/2017 MOISES ROCHE 288.60 LEUKOCYTOSIS, UNSPECIFIED 09/21/2017 MOISES ROCHE W 466.0 ACUTE BRONCHITIS 09/21/2017 MOISES ROCHE W 799.02 HYPOXEMIA 09/21/2017 MOISES ROCHE D72.829 ELEVATED WHITE BLOOD CELL COUNT, UNSPECIFIED 09/21/2017 MOISES ROCHE J20.9 ACUTE BRONCHITIS, UNSPECIFIED 09/21/2017 MOISES ROCHE R09.02 HYPOXEMIA 09/22/2017 MOISES ROCHE W 288.60 LEUKOCYTOSIS, UNSPECIFIED 09/22/2017 MOISES ROCHE W 466.0 ACUTE BRONCHITIS 09/22/2017 MOISES ROCHE W 799.02 HYPOXEMIA 09/22/2017 MOISES ROCHE D72.829 ELEVATED WHITE BLOOD CELL COUNT, UNSPECIFIED 09/22/2017 MOISES ROCHE J20.9 ACUTE BRONCHITIS, UNSPECIFIED 09/22/2017 MOISES ROCHE W R09.02 HYPOXEMIA 09/23/2017 MOISES ROCHE W 288.60 LEUKOCYTOSIS, UNSPECIFIED 09/23/2017 MOISES ROCHE W 466.0 ACUTE BRONCHITIS 09/23/2017 MOISES ROCHE W 799.02 HYPOXEMIA 09/23/2017 MOISES ROCHE D72.829 ELEVATED WHITE BLOOD CELL COUNT, UNSPECIFIED 09/23/2017 ROCHE, MOISES W J20.9 ACUTE BRONCHITIS, UNSPECIFIED 09/23/2017 MOISES ROCHE W R09.02 HYPOXEMIA 09/23/2017 MOISES ROCHE W 276.51 09/23/2017 MOISES ROCHE W 288.60 LEUKOCYTOSIS, UNSPECIFIED 09/23/2017 MOISES ROCHE W 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 09/23/2017 MOISES ROCHE W 458.9 09/23/2017 SARTHAK ROCHEHEL A 466.0 ACUTE BRONCHITIS 09/23/2017 SARTHAK ROCHEHEL W 780.60 09/23/2017 SARTAHK ROCHEHEL W 799.02 HYPOXEMIA 09/23/2017 MOISES ROCHE W D72.829 ELEVATED WHITE BLOOD CELL COUNT, UNSPECIFIED 09/23/2017 MOISES ROCHE W E86.0 DEHYDRATION 09/23/2017 MOISES ROCHE W F70 MILD INTELLECTUAL DISABILITIES 09/23/2017 MOISES ROCHE W I95.9 HYPOTENSION, UNSPECIFIED 09/23/2017 MOISES ROCHE A J20.9 ACUTE BRONCHITIS, UNSPECIFIED 09/23/2017 MOISES ROCHE W R09.02 HYPOXEMIA 09/23/2017 MOISES ROCHE W R50.9 FEVER, UNSPECIFIED 06/23/2018 Becerra, Magdalena A A 466.0 ACUTE BRONCHITIS 06/23/2018 Becerra, Magdalena A W 780.60 FEVER, UNSPECIFIED 06/23/2018 Becerra, Magdalena A A J20.9 ACUTE BRONCHITIS, UNSPECIFIED 06/23/2018 Becerra, Magdalena A W R50.9 FEVER, UNSPECIFIED 09/20/2018 Janice Webster W 799.02 HYPOXEMIA 09/20/2018 Janice Webster W R09.02 HYPOXEMIA 09/20/2018 Luis Websteri W 799.02 HYPOXEMIA 09/20/2018 Darin, Janice W R09.02 HYPOXEMIA 09/20/2018 Janice Webster W 038.8 OTHER SPECIFIED SEPTICEMIAS 09/20/2018 Janice Webster W 799.02 HYPOXEMIA 09/20/2018 Janice Webster W A41.89 OTHER SPECIFIED SEPSIS 09/20/2018 Janice Webster W R09.02 HYPOXEMIA 09/20/2018 Janice Webster W 038.8 OTHER SPECIFIED SEPTICEMIAS 09/20/2018 Webster, Janice W 780.97 ALTERED MENTAL STATUS 09/20/2018 Darin Janice W 799.02 HYPOXEMIA 09/20/2018 Darin Janice W A41.89 OTHER SPECIFIED SEPSIS 09/20/2018 Darin Janice W R09.02 HYPOXEMIA 09/20/2018 Darin, Janice W R41.82 ALTERED MENTAL STATUS, UNSPECIFIED 09/21/2018 Darin Janice W 038.8 OTHER SPECIFIED SEPTICEMIAS 09/21/2018 Darin Janice W 780.97 ALTERED MENTAL STATUS 09/21/2018 Darin Janice W 799.02 HYPOXEMIA 09/21/2018 Darin Janice W A41.89 OTHER SPECIFIED SEPSIS 09/21/2018 Darin Janice W R09.02 HYPOXEMIA 09/21/2018 Darin Janice W R41.82 ALTERED MENTAL STATUS, UNSPECIFIED 09/21/2018 Darin Janice W 038.8 OTHER SPECIFIED SEPTICEMIAS 09/21/2018 Janice Webster W 486 PNEUMONIA, ORGANISM UNSPECIFIED 09/21/2018 Darin Janice W 780.97 ALTERED MENTAL STATUS 09/21/2018 Darin Janice W 799.02 HYPOXEMIA 09/21/2018 Darin Janice W A41.89 OTHER SPECIFIED SEPSIS 09/21/2018 Janice Webster W J18.9 PNEUMONIA, UNSPECIFIED ORGANISM 09/21/2018 Luis Websteri W R09.02 HYPOXEMIA 09/21/2018 Darin Janice W R41.82 ALTERED MENTAL STATUS, UNSPECIFIED 09/21/2018 Darin Janice W 038.8 OTHER SPECIFIED SEPTICEMIAS 09/21/2018 Janice Webster W 486 PNEUMONIA, ORGANISM UNSPECIFIED 09/21/2018 Darin Janice W 780.97 ALTERED MENTAL STATUS 09/21/2018 Darin Janice W 799.02 HYPOXEMIA 09/21/2018 Darin Janice W A41.89 OTHER SPECIFIED SEPSIS 09/21/2018 Janice Webster W J18.9 PNEUMONIA, UNSPECIFIED ORGANISM 09/21/2018 Darin Janice W R09.02 HYPOXEMIA 09/21/2018 Darin Janice W R41.82 ALTERED MENTAL STATUS, UNSPECIFIED 09/24/2018 Darin Janice W 038.8 OTHER SPECIFIED SEPTICEMIAS 09/24/2018 Webster, Janice W 038.9 UNSPECIFIED SEPTICEMIA 09/24/2018 Janice Webster W 276.51 09/24/2018 Janice Webster W 285.9 09/24/2018 Janice Webster W 295.90 UNSPECIFIED SCHIZOPHRENIA, UNSPECIFIED STATE 09/24/2018 Janice Webster W 486 PNEUMONIA, ORGANISM UNSPECIFIED 09/24/2018 Janice Webster W 780.97 ALTERED MENTAL STATUS 09/24/2018 Janice Webster W 799.02 HYPOXEMIA 09/24/2018 Janice Webster W A41.89 OTHER SPECIFIED SEPSIS 09/24/2018 Janice Webster W A41.9 SEPSIS, UNSPECIFIED ORGANISM 09/24/2018 Janice Webster D64.9 ANEMIA, UNSPECIFIED 09/24/2018 Janice Webster W E86.0 DEHYDRATION 09/24/2018 Janice Webster W F20.9 SCHIZOPHRENIA, UNSPECIFIED 09/24/2018 Janice Webster J18.9 PNEUMONIA, UNSPECIFIED ORGANISM 09/24/2018 Janice Webster W R09.02 HYPOXEMIA 09/24/2018 Janice Webster W R41.82 ALTERED MENTAL STATUS, UNSPECIFIED 09/27/2018 Janice Webster W 038.9 09/27/2018 Janice Webster W 276.51 DEHYDRATION 09/27/2018 Janice Webster W 285.9 ANEMIA, UNSPECIFIED 09/27/2018 Darin Janice W 295.90 UNSPECIFIED SCHIZOPHRENIA, UNSPECIFIED STATE 09/27/2018 Janice Webster W 486 09/27/2018 Janice Webster W 780.97 ALTERED MENTAL STATUS 09/27/2018 Janice Webster W 799.02 HYPOXEMIA 09/27/2018 Janice Webster W A41.9 SEPSIS, UNSPECIFIED ORGANISM 09/27/2018 Janice Webster W D64.9 ANEMIA, UNSPECIFIED 09/27/2018 Janice Webster W E86.0 DEHYDRATION 09/27/2018 Janice Webster F20.9 SCHIZOPHRENIA, UNSPECIFIED 09/27/2018 Janice Webster W J18.9 PNEUMONIA, UNSPECIFIED ORGANISM 09/27/2018 Janice Webster W R09.02 HYPOXEMIA 09/27/2018 Janice Webster R41.82 ALTERED MENTAL STATUS, UNSPECIFIED Procedures Code Description [place] [address] LIPI D PANEL 10/21/2012 39695 GLUCOSE 10/21/2012 14187 PSYC H PHARM MGMT 11/12/2012 98601 ROUT INE VENIPUNCTURE 12/02/2012 55630 UA W / CULTURE IF INDICATED 12/02/2012 92311 CBC 12/02/2012 39957 CMP 12/02/2012 63334 LIPI D PANEL 12/02/2012 1720869 GF R CALC (RESULT ONLY) 12/02/2012 41743 TSH 12/03/2012 12360 EKG, TRACING (IN-HOUSE) 12/08/2012 55282 PSYC H PHARM MGMT 04/28/2013 Results Test Result Range [facility] - 05/02/17 09:07 Glucose, Serum 112 mg/dL 65-99 BUN 19 mg/dL 8-27 Creatinine, Serum 0.97 mg/dL 0.76-1.27 eGFR If NonAfricn Am 84 mL/min/1.73 >59 eGFR If Africn Am 97 mL/min/1.73 >59 BUN/Creatinine Ratio 20 10-24 Sodium, Serum 140 mmol/L 134-144 Potassium, Serum 4.6 mmol/L 3.5-5.2 Chloride, Serum 102 mmol/L 96-106 Carbon Dioxide, Total 24 mmol/L 18-29 Calcium, Serum 9.2 mg/dL 8.6-10.2 Protein, Total, Serum 7.2 g/dL 6.0-8.5 Albumin, Serum 3.8 g/dL 3.6-4.8 Globulin, Total 3.4 g/dL 1.5-4.5 A/G Ratio 1.1 1.2-2.2 Bilirubin, Total <0.2 mg/dL 0.0-1.2 Alkaline Phosphatase, S 89 IU/L 39-117 AST (SGOT) 17 IU/L 0-40 ALT (SGPT) 18 IU/L 0-44 Comprehensive Metabolic Panel - 09/21/17 17:35 Albumin 4.0 g/dL 3.6-5.1 ALP 104 U/L 35-130 ALT 21 U/L 6-45 Anion Gap 15 6-14 AST 22 U/L 2-40 BUN 23 mg/dL 5-25 Calcium 9.7 mg/dL 8.3-10.4 Chloride 102 mmol/L 95-114 CO2 27 mEq/L 22-33 Creat 1.43 mg/dL 0.50-1.50 eGFR 50 mL/min/1.73m2 >59 Globulin 4.2 g/dL 2.3-3.5 Glucose 117 mg/dL 70-110 Osmo 294 280-295 Potassium 3.7 mmol/L 3.5-5.3 Sodium 140 mmol/L 134-148 TBil 1.1 mg/dL 0.2-1.2 TP 8.2 g/dL 6.0-8.3 Influenza - 09/21/17 17:35 Influenza NEGATIVE FOR A and B 0.00-0.0 0 Lipase - 09/21/17 17:45 Lipase 12 U/L 7-59 Blood Culture - 09/21/17 17:45 PRELIM CULTURE RESULTS Blood Culture Negativ e, No Growth Day 1 MEDIA PLATED Setup at 19:13 on 09/21/2017X0 [id number] Culture Media Position C43 CULTURE SOURCE #1:Drawn @ Right ARM IV start Blood Culture - 09/21/17 17:45 PRELIM CULTURE RESULTS Blood Culture Negativ e, No Growth Day 1 FINAL CULTURE RESULTS Blood Culture Negative , No Growth Day 5 MEDIA PLATED Setup at 19:13 on 09/21/2017X0 [id number] Culture Media Position C43 CULTURE SOURCE #1:Drawn @ Right ARM IV start Lactic Acid - 09/21/17 19:00 Lactic Acid 7.4 mg/dL 4.5-19.8 Blood Culture - 09/21/17 19:00 PRELIM CULTURE RESULTS Blood Culture Negativ e, No Growth Day 1 MEDIA PLATED Setup at 19:13 on 09/21/2017Bl ood Culture Media Position C48 CULTURE SOURCE #2: Drawn @ Left Hand Blood Culture - 09/21/17 19:00 PRELIM CULTURE RESULTS Blood Culture Negativ e, No Growth Day 1 FINAL CULTURE RESULTS Blood Culture Negative , No Growth Day 5 MEDIA PLATED Setup at 19:13 on 09/21/2017Bl ood Culture Media Position C48 CULTURE SOURCE #2: Drawn @ Left Hand Urinalysis - 09/21/17 20:15 Icotest Negative Negative Urine Crystals Amorphous material: abundant/HPF Urine Volume Urine Volume Insufficient ( <10mL) May Affect Microscopic Exam Urine-Appearance Turbid Clear Urine-Bacteria Trace Urine-Bilirubin 1+ Negative Urine-Blood Trace-intact Negative Urine-Color Yellow Colorless-[place] ow Urine-Epithelial Cells 5-10/HPF Urine-Glucose Negative Negative Urine-Ketones Trace Negative Urine-Leukocytes Trace Negative Urine-Mucus 4+ Urine-Nitrite Negative Negative Urine-Other Urine Saved if Culture Need ed (48hrs from time of collection) Urine-pH 5.5 5-8.5 Urine-Protein 2+ Negative Urine-RBC 0-2/HPF Urine-Specific [place] 1.025 1.000-1 .030 Urine-WBC 2-5/HPF Urobilinogen 1.0 0.2-1.0 CBC with Auto Diff - 09/22/17 05:35 Baso% 0.10 % 0.00-2.50 Eos 0.0 K/uL 0.0-0.7 Eos% 0.2 % 0.0-7.0 Hct 35.3 % 42.0-52.0 Hgb 11.4 Result Verified by Repeat Analysis g/dL 14.0-17.0 Lym 0.80 K/uL 0.60-3.40 Lym% 5.4 % 10.0-50.0 MCH 28.8 pg 27.0-31.2 MCHC 32.3 g/dL 32.0-36.0 MCV 89.1 fL 80.0-97.0 [place]% 8.7 % 0.0-12.0 MPV 10.0 fL 7.4-10.0 Kvng% 85.6 % 37.0-80.0 Plt 210 K/uL 150-400 RBC 3.96 M/uL 4.20-5.40 RDW 13.3 % 11.6-14.8 WBC 14.83 Result Verified by Repeat Analysis K/uL 5.00-10.00 Kvng 12.70 K/uL 2.00-6.90 [place] 1.3 K/uL 0.0-0.9 Baso 0.0 K/uL 0.0-0.2 BMP - 09/23/17 05:30 Anion Gap 15 6-14 BUN 16 mg/dL 5-25 Calcium 8.4 mg/dL 8.3-10.4 Chloride 108 mmol/L 95-114 CO2 25 mEq/L 22-33 Creat 1.18 mg/dL 0.50-1.50 eGFR 63 mL/min/1.73m2 >59 Glucose 103 mg/dL 70-110 Osmo 298 280-295 Potassium 3.6 mmol/L 3.5-5.3 Sodium 144 mmol/L 134-148 Comprehensive Metabolic Panel - 06/23/18 11:10 Albumin 3.9 g/dL 3.6-5.1 ALP 79 U/L 35-130 ALT 20 U/L 6-45 Anion Gap 14 6-14 AST 26 U/L 2-40 BUN 19 mg/dL 5-25 Calcium 9.2 mg/dL 8.3-10.4 Chloride 106 mmol/L 95-114 CO2 22 mEq/L 22-33 Creat 1.12 mg/dL 0.50-1.50 eGFR 66 mL/min/1.73m2 >59 Globulin 3.6 g/dL 2.3-3.5 Glucose 134 mg/dL 70-110 Osmo 289 280-295 Potassium 3.8 mmol/L 3.5-5.3 Sodium 138 mmol/L 134-148 TBil 0.5 mg/dL 0.2-1.2 TP 7.5 g/dL 6.0-8.3 Influenza - 09/20/18 23:00 Influenza NEGATIVE FOR A and B 0.00-0.0 0 Blood Culture - 09/20/18 23:00 PRELIM CULTURE RESULTS Blood Culture Negativ e, No Growth Day 1 FINAL CULTURE RESULTS Blood Culture Negative , No Growth Day 5 MEDIA PLATED Setup at 23:33 on 09/20/2018X0 [id number] Media Position C46 CULTURE SOURCE drawn @ Right Arm IV start Blood Culture - 09/20/18 23:05 PRELIM CULTURE RESULTS Blood Culture Negativ e, No Growth Day 1 FINAL CULTURE RESULTS Blood Culture Negative , No Growth Day 5 MEDIA PLATED Setup at 23:34 on 09/20/2018X0 [id number] Position C41 CULTURE SOURCE drawn @ Left Arm Arterial Blood Gas - 09/20/18 23:20 Base -1.00 mmol/L 1.80-4.20 HCO3 24 mmol/L 20-31 O2 Sat 91 2L O2 % 95-100 pCO2 39 mm/Hg 35-45 pH 7.39 7.35-7.45 PO2 62 mm/Hg 80-95 Sputum Culture - 09/21/18 00:18 PRELIM CULTURE RESULTS Scant Gram Positive M ixed Felicitas [id number] Pathogen Isolated FINAL CULTURE RESULTS Scant Gram Positive Mi xed Normal Felicitas [id number] Pathogens Isolated [id number] Further Workup done MEDIA PLATED Setup at 15:33 on 09/21/2018 Urinalysis - 09/21/18 01:10 Icotest N/A Negative Urine Casts Granular cast: 0-2/HPF Urine Crystals Amorphous material: Few/HPF Urine Volume Urine Volume Sufficient (10mL) Urine-Appearance Clear Clear Urine-Bacteria Negative Urine-Bilirubin Negative Negative Urine-Blood Negative Negative Urine-Color Yellow Colorless-[place] ow Urine-Epithelial Cells 1-5/HPF Urine-Glucose Negative Negative Urine-Ketones Trace Negative Urine-Leukocytes Negative Negative Urine-Nitrite Negative Negative Urine-Other Urine Saved if Culture Need ed (48hrs from time of collection) Urine-pH 5.5 5-8.5 Urine-Protein Trace Negative Urine-RBC 0-2/HPF Urine-Specific [place] 1.020 1.000-1 .030 Urine-WBC 0-2/HPF Urobilinogen 0.2 0.2-1.0 Comprehensive Metabolic Panel - 09/21/18 05:25 Albumin 3.0 g/dL 3.6-5.1 ALP 67 U/L 35-130 ALT 17 U/L 6-45 Anion Gap 14 6-14 AST 22 U/L 2-40 BUN 25 mg/dL 5-25 Calcium 7.4 mg/dL 8.3-10.4 Chloride 108 mmol/L 95-114 CO2 22 mEq/L 22-33 Creat 1.36 mg/dL 0.50-1.50 eGFR 53 mL/min/1.73m2 >59 Globulin 2.3 g/dL 2.3-3.5 Glucose 90 mg/dL 70-110 Osmo 293 280-295 Potassium 3.9 mmol/L 3.5-5.3 Sodium 140 mmol/L 134-148 TBil 0.3 mg/dL 0.2-1.2 TP 5.3 g/dL 6.0-8.3 Comprehensive Metabolic Panel - 09/22/18 05:25 Albumin 3.4 g/dL 3.6-5.1 ALP 72 U/L 35-130 ALT 21 U/L 6-45 Anion Gap 12 6-14 AST 41 U/L 2-40 BUN 15 mg/dL 5-25 Calcium 8.1 mg/dL 8.3-10.4 Chloride 113 mmol/L 95-114 CO2 23 mEq/L 22-33 Creat 1.04 mg/dL 0.50-1.50 eGFR 72 mL/min/1.73m2 >59 Globulin 2.9 g/dL 2.3-3.5 Glucose 85 mg/dL 70-110 Osmo 297 280-295 Potassium 4.3 mmol/L 3.5-5.3 Sodium 144 mmol/L 134-148 TBil 0.3 mg/dL 0.2-1.2 TP 6.3 g/dL 6.0-8.3 Comprehensive Metabolic Panel - 09/23/18 05:00 Albumin 3.6 g/dL 3.6-5.1 ALP 77 U/L 35-130 ALT 23 U/L 6-45 Anion Gap 13 6-14 AST 40 U/L 2-40 BUN 11 mg/dL 5-25 Calcium 8.6 mg/dL 8.3-10.4 Chloride 109 mmol/L 95-114 CO2 24 mEq/L 22-33 Creat 0.98 mg/dL 0.50-1.50 eGFR 77 mL/min/1.73m2 >59 Globulin 3.1 g/dL 2.3-3.5 Glucose 92 mg/dL 70-110 Osmo 292 280-295 Potassium 4.3 mmol/L 3.5-5.3 Sodium 142 mmol/L 134-148 TBil 0.4 mg/dL 0.2-1.2 TP 6.7 g/dL 6.0-8.3 Comprehensive Metabolic Panel - 09/24/18 05:18 Albumin 3.6 g/dL 3.6-5.1 ALP 77 U/L 35-130 ALT 25 U/L 6-45 Anion Gap 14 6-14 AST 38 U/L 2-40 BUN 12 mg/dL 5-25 Calcium 8.7 mg/dL 8.3-10.4 Chloride 108 mmol/L 95-114 CO2 24 mEq/L 22-33 Creat 0.96 mg/dL 0.50-1.50 eGFR 79 mL/min/1.73m2 >59 Globulin 3.2 g/dL 2.3-3.5 Glucose 94 mg/dL 70-110 Osmo 293 280-295 Potassium 4.2 mmol/L 3.5-5.3 Sodium 142 mmol/L 134-148 TBil 0.4 mg/dL 0.2-1.2 TP 6.8 g/dL 6.0-8.3 Comprehensive Metabolic Panel - 09/25/18 05:25 Albumin 3.8 g/dL 3.6-5.1 ALP 80 U/L 35-130 ALT 25 U/L 6-45 Anion Gap 15 6-14 AST 32 U/L 2-40 BUN 16 mg/dL 5-25 Calcium 9.1 mg/dL 8.3-10.4 Chloride 107 mmol/L 95-114 CO2 24 mEq/L 22-33 Creat 0.95 mg/dL 0.50-1.50 eGFR 80 mL/min/1.73m2 >59 Globulin 3.5 g/dL 2.3-3.5 Glucose 147 mg/dL 70-110 Osmo 295 280-295 Potassium 4.6 mmol/L 3.5-5.3 Sodium 141 mmol/L 134-148 TBil 0.3 mg/dL 0.2-1.2 TP 7.3 g/dL 6.0-8.3 Comprehensive Metabolic Panel - 09/26/18 05:45 Albumin 3.8 g/dL 3.6-5.1 ALP 69 U/L 35-130 ALT 24 U/L 6-45 Anion Gap 17 6-14 AST 28 U/L 2-40 BUN 22 mg/dL 5-25 Calcium 9.3 mg/dL 8.3-10.4 Chloride 106 mmol/L 95-114 CO2 24 mEq/L 22-33 Creat 1.09 mg/dL 0.50-1.50 eGFR 68 mL/min/1.73m2 >59 Globulin 3.4 g/dL 2.3-3.5 Glucose 144 mg/dL 70-110 Osmo 299 280-295 Potassium 4.5 mmol/L 3.5-5.3 Sodium 142 mmol/L 134-148 TBil 0.3 mg/dL 0.2-1.2 TP 7.2 g/dL 6.0-8.3 Comprehensive Metabolic Panel - 09/27/18 05:00 Albumin 3.9 g/dL 3.6-5.1 ALP 70 U/L 35-130 ALT 30 U/L 6-45 Anion Gap 16 6-14 AST 28 U/L 2-40 BUN 23 mg/dL 5-25 Calcium 9.4 mg/dL 8.3-10.4 Chloride 106 mmol/L 95-114 CO2 24 mEq/L 22-33 Creat 0.98 mg/dL 0.50-1.50 eGFR 77 mL/min/1.73m2 >59 Globulin 3.4 g/dL 2.3-3.5 Glucose 123 mg/dL 70-110 Osmo 296 280-295 Potassium 4.9 mmol/L 3.5-5.3 Sodium 141 mmol/L 134-148 TBil 0.3 mg/dL 0.2-1.2 TP 7.3 g/dL 6.0-8.3 PDM - ATS (PROFILE 8 WITH CONFIRMATION) - 02/12/19 13:48 Prescribed Drug 1 Clonazepam NRG Creatinine 186.2 mg/dL > or = 20.0 pH 7.47 4.5 - 9.0 Oxidant NEGATIVE mcg/mL <200 Amphetamines NEGATIVE ng/mL <500 medMATCH Amphetamines CONSISTENT NRG Benzodiazepines POSITIVE ng/mL <100 Marijuana Metabolite NEGATIVE ng/mL <20 medMATCH Marijuana Metab CONSISTENT NRG Cocaine Metabolite NEGATIVE ng/mL <150 medMATCH Cocaine Metab CONSISTENT NRG Opiates NEGATIVE ng/mL <100 medMATCH Opiates CONSISTENT NRG Oxycodone NEGATIVE ng/mL <100 medMATCH Oxycodone CONSISTENT NRG COMMENT NRG Buprenorphine NEGATIVE ng/mL <5 MDMA NEGATIVE ng/mL <500 medMATCH MDMA CONSISTENT NRG Alcohol Metabolites NEGATIVE ng/mL <500 medMATCH Alcohol Metab CONSISTENT NRG 6 Acetylmorphine NEGATIVE ng/mL <10 medMATCH 6 Acetylmorphine CONSISTENT NR G Alphahydroxyalprazolam NEGATIVE ng/mL <25 medMATCH aOH alprazolam CONSISTENT NRG Alphahydroxymidazolam NEGATIVE ng/mL < 50 medMATCH aOH midazolam CONSISTENT NRG Alphahydroxytriazolam NEGATIVE ng/mL < 50 medMATCH aOH triazolam CONSISTENT NRG Aminoclonazepam 912 ng/mL <25 medMATCH Aminoclonazepam CONSISTENT NRG Hydroxyethylflurazepam NEGATIVE ng/mL <50 medMATCH OH,Et flurazepam CONSISTENT NR G Lorazepam NEGATIVE ng/mL <50 medMATCH Lorazepam CONSISTENT NRG Nordiazepam NEGATIVE ng/mL <50 medMATCH Nordiazepam CONSISTENT NRG Oxazepam NEGATIVE ng/mL <50 medMATCH Oxazepam CONSISTENT NRG Temazepam NEGATIVE ng/mL <50 medMATCH Temazepam CONSISTENT NRG medMATCH Buprenorphine CONSISTENT NRG CMP - 04/10/19 09:50 GLUCOSE 97 mg/dL 65-99 UREA NITROGEN (BUN) 22 mg/dL 7-25 CREATININE 0.96 mg/dL 0.70-1.25 eGFR NON-AFR. LITHUANIAN 84 mL/min/1.73m2 > OR = 60 eGFR 97 mL/min/1.73m2 > OR = 60 BUN/CREATININE RATIO NOT APPLICABLE (calc) 6-22 SODIUM 140 mmol/L 135-146 POTASSIUM 4.2 mmol/L 3.5-5.3 CHLORIDE 105 mmol/L 98-110 CARBON DIOXIDE 25 mmol/L 20-32 CALCIUM 9.1 mg/dL 8.6-10.3 PROTEIN, TOTAL 7.3 g/dL 6.1-8.1 ALBUMIN 4.2 g/dL 3.6-5.1 GLOBULIN 3.1 g/dL (calc) 1.9-3.7 ALBUMIN/GLOBULIN RATIO 1.4 (calc) 1.0-2. 5 BILIRUBIN, TOTAL 0.7 mg/dL 0.2-1.2 ALKALINE PHOSPHATASE 83 U/L 40-115 AST 18 U/L 10-35 ALT 16 U/L 9-46 CBC - 04/10/19 09:50 WHITE BLOOD CELL COUNT 6.5 Thousand/uL 3 .8-10.8 RED BLOOD CELL COUNT 4.25 Million/uL 4.2 0-5.80 HEMOGLOBIN 11.9 g/dL 13.2-17.1 HEMATOCRIT 37.4 % 38.5-50.0 MCV 88.0 fL 80.0-100.0 MCH 28.0 pg 27.0-33.0 MCHC 31.8 g/dL 32.0-36.0 RDW 13.5 % 11.0-15.0 PLATELET COUNT 208 Thousand/uL 140-400 MPV 10.6 fL 7.5-12.5 ABSOLUTE NEUTROPHILS 4498 cells/uL 1500- 7800 ABSOLUTE LYMPHOCYTES 1047 cells/uL 850-3 900 ABSOLUTE MONOCYTES 650 cells/uL 200-950 ABSOLUTE EOSINOPHILS 254 cells/uL 15-500 ABSOLUTE BASOPHILS 52 cells/uL 0-200 NEUTROPHILS 69.2 % NRG LYMPHOCYTES 16.1 % NRG MONOCYTES 10.0 % NRG EOSINOPHILS 3.9 % NRG BASOPHILS 0.8 % NRG TSH - 04/10/19 09:50 TSH 2.65 mIU/L 0.40-4.50 A1C - 04/10/19 09:50 HEMOGLOBIN A1c 5.8 % of total Hgb <5.7 Encounters ACCT No. Visit Date/Time Discharge Status Pt. Type Provider Facility Loc./Unit Complaint [id number] 10/30/2019 08:43:00 10/30/2019 23:59 :00 DIS Outpatient Layne Rudolph [id number] 10/21/2019 15:43:00 10/21/2019 23:59 :00 DIS Outpatient Layne Rudolph [id number] 09/24/2018 10:00:00 09/27/2018 10:10: 00 DIS Inpatient [facility] [id number] 09/21/2018 00:35:00 09/24/2018 09:59: 00 DIS Inpatient [facility] [id number] 06/23/2018 10:26:00 06/23/2018 11:55: 00 DIS Outpatient Magdalena [facility]erra [facility] [id number] 09/21/2017 16:39:00 09/23/2017 08:55: 00 DIS Outpatient ROCHEMOISES [facility] MED-SURG [id number] 09/21/2017 17:28:36 Document Registration [id number] 09/21/2017 16:39:00 Document Registration [id number] 12/11/2019 10:20:00 12/11/2019 23:59: 59 CLS [facility] [id number] 04/10/2019 08:00:00 Document Registration [id number] 02/12/2019 13:20:00 Document Registration [id number] 05/02/2017 08:00:00 Document Registration [id number] 07/09/2014 08:49:00 07/09/2014 23:59: 59 CLS Outpatient NHUNG HOYOS APRN [id number] 04/08/2014 08:56:00 04/08/2014 23:59: 59 CLS Outpatient NHUNG HOYOS APRN [id number] 01/05/2014 10:20:00 01/05/2014 23:59: 59 CLS Outpatient LAWRENCE PARISI MD [id number] 10/06/2013 12:37:00 10/06/2013 23:59: 59 CLS Outpatient SANA OJEDA APRN [id number] 07/02/2013 10:37:00 07/02/2013 23:59: 59 CLS Outpatient SANA OJEDA APRN [id number] 07/02/2013 10:37:00 07/02/2013 23:59: 59 CLS Outpatient SANA OJEDA APRN [id number] 04/04/2013 13:13:00 04/04/2013 23:59: 59 CLS Outpatient BEVERLY LYNCH DO [id number] 11/12/2012 10:35:00 11/12/2012 23:59: 59 CLS Outpatient BEVERLY LYNCH DO [id number] 08/14/2012 11:15:00 08/14/2012 23:59: 59 CLS Outpatient [id number] 12/02/2012 08:56:00 Document Registration [id number] 11/28/2012 15:55:00 Document Registration
--- OUTSIDE RECORDS SUMMARY | 2020-01-12 07:37 | XMS REPORT ---
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 [id number] 15 MG Orally Once a day [address] [facility] [address]-31 3 MG Orally Once a day Sep 05, 2015 1 tablet Trihexyphenidyl HCl [facility] [address]-26 2 MG Orally 2 times a day for side effects January 06, 2015 [address] [facility] [address]-75 1 MG TAKE ON E TABLET BY MOUTH TWICE DAILY Procedures Procedure Coding System Code Date Office Visit, Est Pt., Level 3 CPT-4 05714 Sep 02, 2015 [facility] VISIT ESTABLISHED PATIENT CPT-4 G0467 J 2015 Vital Signs Date/Time: Sep 02, 2015 Blood Pressure Systolic 118 mmHg Weight 193.1 lbs Height 67.75 in BMI 29.57 Index Blood Pressure Diastolic 64 mmHg Results No Known Results Summary Purpose [employer] Submission
[2020-01-12] MEDS ORDERED: PIPERACILLIN SODIUM/TAZOBACTAM 4.5 GM in NS (IVPB) 100 ML IV ONE ×4 (08:00)
[2020-01-12] MEDS ORDERED: TETANUS,DIPTH,PERTUSS P/F (BOOSTRIX) 0.5 ML VIAL IM ONE (08:00)
[2020-01-12 08:18] LABS: PROTHROMBIN TIME PATIENT 13.9 SEC (12.2-14.7)
[2020-01-12 08:20] LABS: HEMATOCRIT 39 % (40-54); HEMOGLOBIN 12.6 G/DL (13.3-17.7); MEAN CORPUSCULAR HEMOGLOBIN 28 PG (25-34); MEAN CORPUSCULAR HGB CONC 33 G/DL (32-36); MEAN CORPUSCULAR VOLUME 87 FL (80-99); MEAN PLATELET VOLUME 10.2 FL (7.4-10.4); PLATELET COUNT 300 10^3/uL (130-400); RED CELL DISTRIBUTION WIDTH 13.9 % (10.0-14.5); WHITE BLOOD COUNT 14.7 10^3/uL (4.3-11.0)
[2020-01-12 08:21] LABS: BASOPHILS % (AUTO) 0 % (0-10); EOSINOPHILS # (AUTO) 0.1 10^3/uL (0.0-0.3); EOSINOPHILS % (AUTO) 1 % (0-10); LYMPHOCYTES # (AUTO) 0.8 X 10^3 (1.0-4.0); LYMPHOCYTES % (AUTO) 5 % (12-44); MONOCYTES # (AUTO) 0.9 X 10^3 (0.0-1.0); MONOCYTES % (AUTO) 6 % (0-12); NEUTROPHILS # (AUTO) 12.9 X 10^3 (1.8-7.8); NEUTROPHILS % (AUTO) 88 % (42-75)
[2020-01-12 08:22] LABS: BAND NEUTROPHILS 6 %; BASOPHILS % (MANUAL) 0 %; EOSINOPHILS % (MANUAL) 0 %; LYMPHOCYTES % (MANUAL) 6 %; MONOCYTES % (MANUAL) 3 %; NEUTROPHILS % (MANUAL) 85 %
[2020-01-12 08:23] LABS: CHLORIDE 107 MMOL/L (98-107); POTASSIUM 3.9 MMOL/L (3.6-5.0); RBC MORPH NORMAL; SODIUM 141 MMOL/L (135-145)
[2020-01-12 08:24] LABS: ALANINE AMINOTRANSFERASE 22 U/L (0-55); ALBUMIN 4.3 GM/DL (3.2-4.5); ALKALINE PHOSPHATASE 100 U/L (40-136); BILIRUBIN,TOTAL 0.3 MG/DL (0.1-1.0); BUN/CREATININE RATIO 14; CALCIUM 9.2 MG/DL (8.5-10.1); CARBON DIOXIDE 14 MMOL/L (21-32); CREATININE SERUM 1.51 MG/DL (0.60-1.30); GFR ESTIMATED 47; GLUCOSE 162 MG/DL (70-105); TOTAL PROTEIN 8.5 GM/DL (6.4-8.2)
[2020-01-12 08:37] LABS: BILIRUBIN,URINE NEGATIVE (NEGATIVE); CLARITY,URINE CLEAR; COLOR,URINE YELLOW; GLUCOSE, URINE (UA) NEGATIVE (NEGATIVE); KETONES,URINE NEGATIVE (NEGATIVE); LEUKOCYTE ESTERASE ,URINE TRACE (NEGATIVE); NITRITE,URINE NEGATIVE (NEGATIVE); PH,URINE 5.5 (5-9); PROTEIN,URINE 1+ (NEGATIVE)
--- NOTE | 2020-01-12 08:37 | Diagnostic Imaging Report ---
INDICATION: Knee pain. FINDINGS: There is minimal degenerative narrowing in the medial knee joint compartment bilaterally. There is no fracture or dislocation. Soft tissues are unremarkable. IMPRESSION: Mild degenerative narrowing of the medial knee joint compartments bilaterally otherwise unremarkable. Dictated by: Dictated on workstation # [id number]
[2020-01-12 08:49] LABS: BACTERIA,URINE TRACE /HPF; RBC,URINE RARE /HPF; WBC,URINE 0-2 /HPF
--- NOTE | 2020-01-12 10:29 | ED General ---
General Chief Complaint: Altered Mental Status Stated Complaint: AMS Nursing Triage Note: PT ARRIVES TO THE ED VIA EMS TO ROOM 5 AFTER BYSTANDERS FOUND THE PT OUTDOORS NEAR THE [address], THE PT WAS REPORTED BEING FOUND ON THE GROUND, FOR AN UNKNOWN AMOUNT OF TIME. NOTED BILATERAL ABRASIONS TO THE PT'S KNESS, PT STATES HE WAS HEADED TO THE CLINIC TO BE SEEN FOR A COUGH. DENIES HEAD OR NECK PAIN, DENIES LOC. PT NOTED TO BE A POOR HISTORIAN AND CONFUSED. Nursing Sepsis Screen: No Definite Risk Source of Information: Patient Exam Limitations: No Limitations History of Present Illness Date Seen by Provider: January 12, 2020 Time Seen by Provider: 06:09 Initial Comments This 64-year-old gentleman presents to emergency room via EMS after being found down in the road by bystanders. He states he was going to see someone by the name of she and the brown at a medical clinic. He is alert and oriented to person, place, month, and age although he seems confused about his history and other details such as his height and weight. He reports a mild dry cough present for a few days. He denies any other acute symptoms. We were later able to contact his sister who reports the patient has MR and schizophrenia. He has paranoia and is often not forthcoming with information. Patient has abrasions to his knees bilaterally. He denies any pain or injury elsewhere. He denies hitting his head or having any neck pain. His primary care provider is Tanja Rudolph at the [facility]. He receives his behavioral health care at [facility]. He lives with his 2 brothers. Allergies and Home Medications Allergies Coded Allergies: chlorpromazine (Verified Allergy, Unknown, 01/12/20) prochlorperazine (Verified Allergy, Unknown, 01/12/20) Home Medications Azithromycin 250 Mg Tablet, 250 MG PO UD TAKE 2 TABLETS ON DAY ONE THEN TAKE 1 TABLET DAILY FOR FOUR MORE DAYS Prescribed by: JUDITH SCHUSTER on 01/12/20 1033 Patient Home Medication List Home Medication List Reviewed: Yes Review of Systems Review of Systems Constitutional: no symptoms reported EENTM: no symptoms reported Respiratory: see HPI Cardiovascular: no symptoms reported Gastrointestinal: no symptoms reported Genitourinary: no symptoms reported Musculoskeletal: see HPI Skin: see HPI Psychiatric/Neurological: See HPI Hematologic/Lymphatic: No Symptoms Reported Immunological/Allergic: no symptoms reported Past Hkjogyo-Bqnyva-Megjbg Hx Past Med/Social Hx: Reviewed and Corrections made Patient Social History Alcohol Use: Denies Use Recreational Drug Use: No Smoking Status: Unknown if Ever Smoked Recent Foreign Travel: No Contact w/Someone Who Travel: No Recent Infectious Disease Expo: No Past Medical History Surgeries: Yes Respiratory: No Cardiac: No Neurological: Yes Developmental Disorder Reproductive Disorders: No Genitourinary: No Gastrointestinal: No Musculoskeletal: No Endocrine: No HEENT: No Cancer: No Psychosocial: Yes Schizophrenia Integumentary: No Family Medical History Reviewed Nursing Family Hx Heart Disease, CAD Under 55 Years Old Physical Exam Vital Signs Vital Signs - First Documented 01/12/20 06:11 Temp 36.4 Pulse 113 Resp 20 B/P (MAP) 96/60 (72) Pulse Ox 97 O2 Delivery Nasal Cannula O2 Flow Rate 4.00 Capillary Refill : Less Than 3 Seconds Height, Weight, BMI Height: '" Weight: lbs. oz. kg; 30.00 BMI Method: General Appearance: No Apparent Distress, WD/WN HEENT: PERRL/EOMI, Normal ENT Inspection, Pharynx Normal Neck: Normal Inspection Respiratory: Lungs Clear, Normal Breath Sounds, No Accessory Muscle Use, No Respiratory Distress Cardiovascular: Regular Rate, Rhythm, No Edema, No Murmur, Normal Peripheral Pulses Gastrointestinal: Normal Bowel Sounds, Non Tender, Soft Extremity: No Pedal Edema, Other (Abrasions to both knees. No pain with range of motion of the knees or rotation of the hips. 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 Norm as Tested Skin: Normal Color, Warm/Dry, Other (See above) Focused Exam Lactate Level 01/12/20 06:30: Lactic Acid Level 7.52*H 01/12/20 08:30: Lactic Acid Level 2.10*H Lactic Acid Level Progress/Results/Core Measures Suspected Sepsis Recent Fever Within 48 Hours: No Infection Criteria Present: Suspected New Infection New/Unexplained Altered Menta: Yes Sepsis Screen: No Definite Risk SIRS Temperature: Pulse: 113 Respiratory Rate: 20 Laboratory Tests 01/12/20 06:30: White Blood Count 14.7H Blood Pressure 96 /60 Mean: 72 01/12/20 06:30: Lactic Acid Level 7.52*H 01/12/20 08:30: Lactic Acid Level 2.10*H Laboratory Tests 01/12/20 06:30: Creatinine 1.51H, Platelet Count 300, Total Bilirubin 0.3 01/12/20 06:55: INR Comment 1.0 Results/Orders Lab Results Laboratory Tests Test 01/12/20 06:30 01/12/20 06:35 01/12/20 06:55 01/12/20 08:30 Range/Units White Blood Count 14.7 H 4.3-11.0 10^3/uL Red Blood Count 4.47 4.35-5.85 10^6/uL Hemoglobin 12.6 L 13.3-17.7 G/DL Hematocrit 39 L 40-54 % Mean Corpuscular Volume 87 80-99 FL Mean Corpuscular Hemoglobin 28 25-34 PG Mean Corpuscular Hemoglobin Concent 33 32-36 G/DL Red Cell Distribution Width 13.9 10.0-14.5 % Platelet Count 300 130-400 10^3/uL Mean Platelet Volume 10.2 7.4-10.4 FL Neutrophils (%) (Auto) 88 H 42-75 % Lymphocytes (%) (Auto) 5 L 12-44 % Monocytes (%) (Auto) 6 0-12 % Eosinophils (%) (Auto) 1 0-10 % Basophils (%) (Auto) 0 0-10 % Neutrophils # (Auto) 12.9 H 1.8-7.8 X 10^3 Lymphocytes # (Auto) 0.8 L 1.0-4.0 X 10^3 Monocytes # (Auto) 0.9 0.0-1.0 X 10^3 Eosinophils # (Auto) 0.1 0.0-0.3 10^3/uL Basophils # (Auto) 0.0 0.0-0.1 10^3/uL Neutrophils % (Manual) 85 % Lymphocytes % (Manual) 6 % Monocytes % (Manual) 3 % Eosinophils % (Manual) 0 % Basophils % (Manual) 0 % Band Neutrophils 6 % Blood Morphology Comment NORMAL Sodium Level 141 135-145 MMOL/L Potassium Level 3.9 3.6-5.0 MMOL/L Chloride Level 107 98-107 MMOL/L Carbon Dioxide Level 14 L 21-32 MMOL/L Anion Gap 20 H 5-14 MMOL/L Blood Urea Nitrogen 21 H 7-18 MG/DL Creatinine 1.51 H 0.60-1.30 MG/DL Estimat Glomerular Filtration Rate 47 BUN/Creatinine Ratio 14 Glucose Level 162 H 70-105 MG/DL Lactic Acid Level 7.52 *H 2.10 *H 0.50-2.00 MMOL/L Calcium Level 9.2 8.5-10.1 MG/DL Corrected Calcium 9.0 8.5-10.1 MG/DL Total Bilirubin 0.3 0.1-1.0 MG/DL Aspartate Amino Transf (AST/SGOT) 25 5-34 U/L Alanine Aminotransferase (ALT/SGPT) 22 0-55 U/L Alkaline Phosphatase 100 40-136 U/L Lactate Dehydrogenase 178 125-220 U/L Total Creatine Kinase 398 H 30-200 U/L C-Reactive Protein High Sensitivity 0.82 H 0.00-0.50 MG/DL B-Type Natriuretic Peptide 61.5 <100.0 PG/ML Total Protein 8.5 H 6.4-8.2 GM/DL Albumin 4.3 3.2-4.5 GM/DL Serum Alcohol < 10 <10 MG/DL Coronavirus (COVID-19)(PCR) Negative Negative Prothrombin Time 13.9 12.2-14.7 SEC INR Comment 1.0 0.8-1.4 Activated Partial Thromboplast Time 28 24-35 SEC Procalcitonin 0.06 <0.10 NG/ML Urine Color YELLOW Urine Clarity CLEAR Urine pH 5.5 5-9 Urine Specific [place] 1.020 1.016-1.022 Urine Protein 1+ H NEGATIVE Urine Glucose (UA) NEGATIVE NEGATIVE Urine Ketones NEGATIVE NEGATIVE Urine Nitrite NEGATIVE NEGATIVE Urine Bilirubin NEGATIVE NEGATIVE Urine Urobilinogen 0.2 < = 1.0 MG/DL Urine Leukocyte Esterase TRACE H NEGATIVE Urine RBC (Auto) 3+ H NEGATIVE Urine RBC RARE /HPF Urine WBC 0-2 /HPF Urine Squamous Epithelial Cells 2-5 /HPF Urine Crystals NONE /LPF Urine Bacteria TRACE /HPF Urine Casts NONE /LPF Urine Mucus NEGATIVE /LPF Urine Culture Indicated CULTURE PENDING Micro Results Microbiology 01/12/20 Influenza Types A,B Antigen (JONH) - Final, Complete My Orders Orders - JUDITH VEGA MD Ua Culture If Indicated (01/12/20 07:55) Knee, 3 Views, Bilateral (01/12/20 07:55) Lactic Acid Analyzer (01/12/20 06:30) Piperacillin Sodium/Tazobactam (Zosyn Vi (01/12/20 08:00) Dipht,Pertuss(Acell),Tet Adult (Boostrix (01/12/20 08:00) Piperacillin Sodium/Tazobactam (Zosyn Vi (01/12/20 08:00) Urine Culture (01/12/20 06:34) Blood Culture (01/12/20 06:34) Blood Culture (01/12/20 06:34) Influenza A And B Antigens (01/12/20 06:35) Sputum Culture (01/12/20 06:34) Coronavirus Sars-Cov-2 So 2018 (01/12/20 06:35) Cbc With Automated Diff (01/12/20 06:30) Protime With Inr (01/12/20 06:30) Partial Thromboplastin Time (01/12/20 06:30) BNP (01/12/20 06:30) Alcohol (01/12/20 06:30) Comprehensive Metabolic Panel (01/12/20 06:30) Hs C Reactive Protein (01/12/20 06:30) LDH (01/12/20 06:30) Procalcitonin (Pct) (01/12/20 08:11) Manual Differential (01/12/20 06:30) Creatine Kinase (01/12/20 08:45) Ns Iv 1000 Ml (Sodium Chloride 0.9%) (01/12/20 06:34) Ns Iv 1000 Ml (Sodium Chloride 0.9%) (01/12/20 07:00) Medications Given in ED Current Medications Medications Dose Ordered Sig/Sheila Route Start Time Stop Time Status Last Admin Dose Admin Diphtheria/ Tetanus/Acell Pertussis 0.5 ml ONCE ONCE IM 01/12/20 08:00 01/12/20 08:01 DC 01/12/20 08:39 0.5 ML Piperacillin Sod/ Tazobactam Sod 4.5 gm/Sodium Chloride 100 ml @ 200 mls/hr ONCE ONCE IV 01/12/20 08:00 01/12/20 08:29 DC 01/12/20 08:35 200 MLS/HR Vital Signs/I&O 01/12/20 10:45 Pulse 90 Resp 20 B/P (MAP) 138/89 Pulse Ox 99 O2 Delivery Room Air Capillary Refill : Less Than 3 Seconds Blood Pressure Mean: 72 Progress Note : Progress Note Patient was seen and examined and septic workup was pursued. Patient was found to have a markedly elevated lactic acid. However, no source of infection or sepsis was identified. He received 2 L of IV fluid which improved his lactic acid significantly. Had a long discussion with his family. They came to pick him up at discharge. He was started on azithromycin as a precaution because of his cough and history of pneumonia. Petty virus testing was also performed. Influenza screen was negative. He had an elevated creatinine kinase which may be either related to fall and a long walk or his Abilify. This was discussed with the family. See discharge instructions. Diagnostic Imaging Diagonstic Imaging: Xray Plain Films/CT/US/NM/MRI: knee Comments NAME: MARIBEL NOBLES [facility] REC#: [id number] PT STATUS: REG ER : 1955 PHYSICIAN: JUDITH VEGA MD ADMIT DATE: 01/12/20/ER Signed Date of Exam:01/12/20 KNEE, 3 VIEWS, BILATERAL INDICATION: Knee pain. FINDINGS: There is minimal degenerative narrowing in the medial knee joint compartment bilaterally. There is no fracture or dislocation. Soft tissues are unremarkable. IMPRESSION: Mild degenerative narrowing of the medial knee joint compartments bilaterally otherwise unremarkable. Dictated by: Dictated on workstation # [id number] Dict: 01/12/20 0835 Trans: 01/12/2006 [id number] Interpreted by: NILES SULTANA MD Electronically signed by: NILES SULTANA MD 01/12/20905 Reviewed: Reviewed by Me Diagonstic Imaging: Xray Plain Films/CT/US/NM/MRI: chest Comments Chest x-ray viewed by me and report reviewed. See report below: Signed Date of Exam:01/12/20 CHEST 1 VIEW, AP/PA ONLY INDICATION: Cough and congestion. Comparison made with prior examination from 12/31/2016. FINDINGS: There is cardiomegaly. The mediastinum is unremarkable. There is no pleural effusion or pneumothorax. IMPRESSION: No acute cardiopulmonary abnormality. Cardiomegaly. Dictated by: Dictated on workstation # [id number] Dict: 01/12/20 0704 Trans: 01/12/20 0748 [facility] [id number] Interpreted by: NILES SULTANA MD Electronically signed by: NILES SULTANA MD 01/12/20 0748 Departure Impression Primary Impression: Lactic acidosis Additional Impressions: Cough Fall on same level as cause of accidental injury Knee abrasion Qualified Codes: S80.219A - Abrasion, unspecified knee, initial encounter Elevated creatine kinase Disposition: HOME, SELF-CARE Condition: Improved Departure-Patient Inst. Decision time for Depature: 10:27 Patient Instructions: Cough in Adults Add. Discharge Instructions: Encourage plenty of clear liquids. Continue with present medications as prescribed but discussed medications with your primary care provider soon as possible. The elevated creatinine kinase may be related to aripiprazole or due to hydration status and his long walk prior to the ER visit. Complete antibiotics as prescribed. Home isolate until the results of the coronavirus test are known. Call or return to care if you have any further problems or concerns. All discharge instructions reviewed with patient and/or family. Voiced understanding. Scripts Azithromycin (Azithromycin) 250 Mg Tablet 250 MG PO UD, #6 TAB TAKE 2 TABLETS ON DAY ONE THEN TAKE 1 TABLET DAILY FOR FOUR MORE DAYS Prov: JUDITH VEGA MD 01/12/20 JUDITH VEGA MD January 12, 2020 10:29
[2020-01-12] MEDS ORDERED: AZIT250T12 PO (10:33)
[2020-01-12 10:45] VITALS: BP 138/89
== END 2020-01-12 10:45 | disposition home or self-care (01) ==
LOC: EDUNIT# 06:11 → ER 06:16
DX: S80.211A Abrasion, right knee, initial encounter (principal); S80.212A Abrasion, left knee, initial encounter; E87.2 Acidosis; R05 Cough; R74.8 Abnormal levels of other serum enzymes; Z88.8 Allergy status to other drugs, medicaments and biological substances; Z82.49 Family history of ischemic heart disease and other diseases of the circulatory system; Z23 Encounter for immunization; W19.XXXA Unspecified fall, initial encounter
CPT/HCPCS: 36415; 71045; 80053; 80320; 81000; 82550; 83605; 83615; 83880; 84145; 85007; 85027; 85610; 85730; 86141; 87040; 87077; 87088; 87186; 87635; 87804; 90471; 90715; 96361; 96365

== ENCOUNTER → 2020-02-22 | Outpatient (CLI) | payer OTHER, MEDICARE, MEDICAID ==
[~2020-02-22] MED LIST: AZIT250T12 PO
== END ==
LOC: GIR 18:04
PROVIDERS: ATTEND Nurse Practitioner
DX: Z53.9 Procedure and treatment not carried out, unspecified reason (principal)

== ENCOUNTER → 2020-02-22 | Outpatient (CLI) | payer OTHER, MEDICARE, MEDICAID ==
[2020-02-22 18:50] LABS: ALANINE AMINOTRANSFERASE 27 U/L (0-55); ALBUMIN 4.1 GM/DL (3.2-4.5); ALKALINE PHOSPHATASE 105 U/L (40-136); BILIRUBIN,TOTAL 0.5 MG/DL (0.1-1.0); BUN/CREATININE RATIO 17; CALCIUM 9.2 MG/DL (8.5-10.1); CARBON DIOXIDE 25 MMOL/L (21-32); CHLORIDE 105 MMOL/L (98-107); CHOLESTEROL 192 MG/DL (< 200); CREATININE SERUM 1.02 MG/DL (0.60-1.30); GFR ESTIMATED > 60; GLUCOSE 103 MG/DL (70-105); HDL CHOLESTEROL 38 MG/DL (40-60); POTASSIUM 4.1 MMOL/L (3.6-5.0); SODIUM 140 MMOL/L (135-145); TOTAL PROTEIN 7.5 GM/DL (6.4-8.2); TRIGLYCERIDES 97 MG/DL (<150); VLDL CHOLESTEROL 19 MG/DL (5-40)
== END ==
LOC: GIR 08:32
PROVIDERS: ATTEND Nurse Practitioner
DX: Z01.89 Encounter for other specified special examinations (principal)
CPT/HCPCS: 80053; 80061

== ENCOUNTER → 2020-02-22 | Outpatient (CLI) | payer OTHER, MEDICARE, MEDICAID | LOC: GIR 17:40 | PROVIDERS: ATTEND Nurse Practitioner | DX: Z01.89 Encounter for other specified special examinations (principal); Z53.8 Procedure and treatment not carried out for other reasons ==